=== PATIENT | female | born 1975 | race Two or more races ===

== ENCOUNTER 2025-03-13 15:45 | Emergency (ER) | payer MEDICAID, SELFPAY ==
[2025-03-13 15:49] VITALS: BP 109/74; PULSE 99; RESP 18; TEMP 37.9; O2SAT 97
--- NOTE | 2025-03-13 16:06 | XR_ITS ---
Examination: CT abdomen and pelvis without contrast. Coronal 3-D reconstructions. Sagittal 2-D reconstructions. Date and time of exam:March 13, 2025 1705 hours Comparison March 31, 2023 INDICATIONS: Generalized abdominal pain and vomiting today CTDI: vol (mGy): 9.44 DLP: (mGycm): 535 Technique: Axial images of the abdomen have been obtained, 3 mm slice thickness Intravenous contrast material has not been administered. Low dose protocols were performed. One or more of the following dose reduction techniques were used; automated exposure control, adjustment of the mA and/or KV according to patient size, use of iterative reconstruction technique. Findings: No focal liver or splenic lesions Absent gallbladder Common bile duct 4 mm no common bile duct stones No pancreatitis Normal adrenal glands 23 mm right renal cyst No renal or ureteral calculi, no hydronephrosis Aorta normal size 6 mm fat-containing umbilical hernia No CT findings of appendicitis, no pericecal inflammatory change No bowel obstruction No diverticulitis Retroverted uterus with enlarged fundus and exophytic uterine mass versus adnexal mass axial image 194, measuring 5 cm Urinary bladder intact IMPRESSION: No renal or ureteral calculi, no hydronephrosis No CT findings of appendicitis bowel obstruction or diverticulitis Retroverted uterus with enlarged fundus and exophytic uterine mass versus adnexal mass measuring 5 cm, recommend pelvic sonography follow-up
[2025-03-13 16:35] LABS: Basophils % (Auto) 0 % (0-2.5); Eosinophils # (Auto) 0.2 Thou/mm3 (0.0-0.5); Eosinophils % (Auto) 2 % (0-10); Hematocrit 39.6 % (36.0-46.0); Hemoglobin 13.4 g/dL (12.0-16.0); Immature Granulocytes % (Auto) 0 % (0-0); Immature Granulocytes Auto 0.02 Thou/mm3 (0.00-0.00); Lymphocytes # (Auto) 1.2 Thou/mm3 (1.0-4.8); Lymphocytes % (Auto) 14 % (10-50); Mean Corpuscular HGB Conc 33.8 g/dl (31.0-37.0); Mean Corpuscular Hemoglobin 31.5 pg (25.0-35.0); Mean Corpuscular Volume 93 fL (80-100); Monocytes # (Auto) 0.3 Thou/mm3 (0.0-0.8); Monocytes % (Auto) 4 % (0-12); Neutrophils # (Auto) 6.8 Thou/mm3 (1.8-7.7); Neutrophils % (Auto) 80 % (37-80); Nucleated Red Blood Cell % 0 /100 WBC (0); Platelet Count 200 Thou/mm3 (140-440); RDW Standard Deviation 46.6 fL (36.4-46.3); Red Blood Count 4.25 Miln/mm3 (4.00-5.20); White Blood Count 8.4 Thou/mm3 (3.6-11.0)
[2025-03-13 16:41] LABS: Collection Type, Urine Clean Catch
[2025-03-13] MEDS: ONDANSETRON ODT 4 MG TABRAP PO ×2 (16:45→20:01)
[2025-03-13 16:49] LABS: HCG Qualitative,Urine Negative
[2025-03-13 16:52] LABS: Alanine Aminotransferase 35 U/L (10-49); Albumin, Serum 4.4 gm/dL (3.5-5.0); Albumin/Globulin Ratio 1.4 (1.2-2.2); Alkaline Phosphatase 114 U/L (46-116); Anion Gap 8 (7-16); Aspartate Amino Transferase 43 U/L (0-34); BUN/Creatinine Ratio 20 Ratio (12-20); Bilirubin,Total 0.6 mg/dL (0.3-1.2); Blood Urea Nitrogen 14 mg/dL (9-23); Calcium 9.3 mg/dL (8.3-10.6); Calcium (Corrected) 9.3 mg/dL (8.5-10.1); Carbon Dioxide 28.1 mMol/L (20.0-31.0); Chloride 105 mMol/L (98-107); Creatinine (Component) 0.7 mg/dL (0.6-1.3); Globulin 3.2 gm/dL (2.3-3.5); Glucose 108 mg/dL (74-106); Lipase 32 U/L (12-53); Osmolality,Calculated 282 (275-295); Potassium 4.3 mMol/L (3.4-5.1); Sodium 141 mMol/L (136-145); Total Protein 7.6 gm/dL (5.7-8.2); eGFR > 60 See Note
[2025-03-13 17:21] LABS: Bacteria,Urine 2+; Bilirubin,Urine Negative (Negative); Blood,Urine Negative (Negative); Color,Urine Yellow (Lt Yel-Yel); Glucose, Urine Negative (Negative); Ketones,Urine Negative (Negative); Leukocyte Esterase,Urine Positive (Negative); Nitrite,Urine Negative (Negative); Protein,Urine Negative (Neg - Trace); RBC,Urine 3 /hpf (0-3); Specific Gravity,Urine 1.019 (1.001-1.035); Squamous Epithelial Cell,Urine 3 /hpf (0-5); Urobilinogen,Urine Negative mg/dL (0.0-1.0); WBC,Urine 8 /hpf (0-5)
[2025-03-13 17:22] LABS: Clarity,Urine Hazy (Clear/Hazy)
[2025-03-13 18:03] VITALS: BP 114/80; PULSE 95; RESP 17; TEMP 37.2; O2SAT 98
--- NOTE | 2025-03-13 18:08 | XR_ITS ---
Examination: Pelvic ultrasound, transabdominal, complete Technique: Transabdominal ultrasound of the pelvis performed using grayscale imaging Date and time of exam: March 13, 2025 1927 hours INDICATIONS: Pelvic pain and nausea today FINDINGS: Uterus 12.7 cm endometrial stripe 0.3 cm No uterine mass or intrauterine gestation Ovaries obscured by bowel gas IMPRESSION: Limited study No uterine mass or intrauterine gestation
--- NOTE | 2025-03-13 19:52 | EDNOTE_ITS ---
ED Abdominal Pain RME/HPI General Chief Complaint: Nausea/Vomiting/Diarrhea Stated complaint: VOMITING/BODYACHES Time seen by provider: 03/13/25 15:49 Arrival date/time: 03/13/25 15:45 This is a case of a 49-year-old female who came in the emergency room due to abdominal pain mostly on the periumbilical area cramping in character for 4 days associated with vomiting 4 times today nonprojectile and generalized body ache patient denies any constipation diarrhea or blood in stool denies any fever or chills persistence of the symptoms this patient decided to start consult here in the emergency room Limitations: no limitations Related Data Home Medications ?Medication ?Instructions ?Recorded ?Confirmed acetaminophen 500 mg tablet 500 mg PO Q6H PRN Pain 05/06/23 Held on 05/08/23. Instructions: Resume on 05/13/23. omeprazole 40 mg capsule,delayed 40 mg PO QDAY 3 05/06/23 release Previous Rx's ?Medication ?Instructions ?Recorded docusate sodium 100 mg capsule 100 mg PO BID #40 caps 05/08/23 (Colace) hydrocodone 5 mg-acetaminophen 325 1 tab PO Q6H PRN pa in (scale score 05/08/23 mg tablet 7-10) #20 tabs ibuprofen 600 mg tablet 600 mg PO Q8H PRN pain (scal e 05/08/23 score 4-6) #15 tabs amoxicillin 875 mg-potassium 1 tab PO BID 10 days #20 tabs 03/13/25 clavulanate 125 mg tablet dicyclomine 20 mg tablet 20 mg PO TID PRN abdominal p ain 03/13/25 #20 tabs famotidine 20 mg tablet 20 mg PO BID #30 tabs ondansetron 4 mg disintegrating 4 mg PO Q8H PRN nausea and 03/13/25 tablet vomiting #20 tabs Allergies Allergy/AdvReac Type Severity Reaction Status Date / Time No Known Allergies Allergy Verified 03/13/25 15:48 Review of Systems Review of Systems Systems Reviewed: All systems reviewed, normal except as documented Constitutional Constitutional: Reports system reviewed and no additional complaints, except as documented and Reports as per HPI ENT Ears, Nose, Mouth, and Throat: Denies dysphagia and Denies odynophagia Cardiovascular Cardiovascular: Reports as per HPI Respiratory Respiratory: Reports system reviewed and no additional complaints, except as documented and Reports as per HPI Gastrointestinal Gastrointestinal: Reports system reviewed and no additional complaints, except as documented, Reports as per HPI, Reports abdominal pain, Denies belching, Denies bloating, Denies change in bowel habits, Denies change in stool character, Denies coffee ground emesis, Denies constipation, Denies cramping, Denies diarrhea, Denies dyspepsia, Denies dysphagia, Denies early satiety, Denies excessive flatus, Denies fecal incontinence, Denies heartburn, Denies hematemesis, Denies hematochezia, Denies loose stools, Denies melena, Reports nausea, Denies odynophagia, Denies tenesmus and Reports vomiting Musculoskeletal Musculoskeletal: Reports system reviewed and no additional complaints, except as documented and Reports as per HPI Neurologic Neurologic: Reports system reviewed and no additional complaints, except as documented and Reports as per HPI Past Medical History Past Medical History NEUROLOGIC: Negative Neurological Disorders or Seizures CARDIAC: Negative Cardiac Disorders or Congestive Heart Failure RESPIRATORY: Positive Bronchitis (15 yrs ago); Negative Chronic Obstructive Pulmonary Disease (COPD) or Asthma GASTROINTESTINAL: Positive Gastrointestinal Disorders and Gall Bladder Disease GENITOURINARY: Positive Genitourinary Disorders and Kidney Stones; Negative Renal Disease REPRODUCTIVE: Positive Previous Pregnancies; Negative Endometriosis MUSCULOSKELETAL: Negative Musculoskeletal Disorders ENDOCRINE: Negative Endocrine Disorders, Diabetes Mellitus Type 1 or Diabetes Mellitus Type 2 HEMATOLOGIC: Negative Blood Disorders or Sickle Cell Disease OTHER HISTORY: Positive Chicken Pox and Measles; Negative Hospitalization, Autoimmune Disease, Shingles, Blood Transfusions, Blood Transfusion Reaction, Anesthesia Reactions or Cancer Family History FAMILY HISTORY: Positive Family Surgery; Negative Family Psychiatric Problems, Family Respiratory Disorders, Family Cardiac Disorders, Family Gastrointestinal Problems, Family Cancer or Family Anesthesia Reaction Surgical History SURGICAL: Positive Section Social History SMOKING STATUS: Never smoker ED Exam General Limitations: Present no limitations General appearance: Present alert and in no apparent distress Head Head exam: Present atraumatic Eye Eye exam: Present normal appearance, PERRL and EOMI ENT ENT exam: Present normal exam, normal oropharynx and mucous membranes moist Neck Neck exam: Present normal inspection, full ROM and trachea midline; Absent tenderness, meningismus, lymphadenopathy or thyromegaly Chest Chest inspection: Present normal inspection and symmetric chest wall rise; Absent tenderness, rash or abscess Respiratory Respiratory exam: Present normal lung sounds bilaterally; Absent respiratory distress, wheezes, stridor, accessory muscle use or prolonged expiratory phase Cardiovascular Cardiovascular exam: Present regular rate, normal rhythm and normal heart sounds Abdominal Exam Abdominal exam: Present soft, tenderness (Mild tenderness in the periumbilical area) and normal bowel sounds; Absent distention, guarding, rebound, rigidity, diminished bowel sounds, hyperactive bowel sounds, hypoactive bowel sounds, organomegaly, trauma, incision, psoas sign, obturator sign, heel tap sign, Lao's sign, Rovsing's sign, tenderness at McBurney's Point, ascites, mass, bruit, pulsatile mass, hernia or scar Extremities Exam Extremities exam: Present normal inspection and full ROM Back Exam Back exam: Present normal inspection and full ROM Neurological Exam Neurological exam: Present alert, oriented X3, CN II-XII intact, normal gait and reflexes normal; Absent motor sensory deficit Psychiatric Psychiatric exam: Present normal affect and normal mood Skin Skin exam: Present warm, dry, intact and normal color Course Quality Measures none Orders Category Date Time Status CT abdomen pelvis wo con Stat Exams 03/13/25 16:06 Completed US pelvic complete Stat Exams 03/13/25 18:08 Completed CBC Stat Lab 03/13/25 16:18 Completed Comprehensive Metabolic Panel Stat Lab 03/13/25 16:18 Completed HCG Qualitative,Urine Stat Lab 03/13/25 16:35 Completed Lipase Stat Lab 03/13/25 16:18 Completed Urinalysis Stat Lab 03/13/25 16:35 Completed Dicyclomine Inj [Bentyl Inj] Med 03/13/25 19:42 Discontinued 10 mg IM X1 ONE HYDROcodone*/APAP 5/325 [Dellroy 5/325] Med 03/13/25 19:50 Discontinued 1 tab PO X1 ONE Ondansetron Odt [Zofran Odt] Med 03/13/25 16:06 Discontinued 4 mg PO X1 ONE Ondansetron Odt [Zofran Odt] Med 03/13/25 19:50 Discontinued 4 mg PO X1 ONE Vital Signs Vital signs: Vital Signs Temperature 100.3 F 03/13/25 15:49 Pulse Rate 99 03/13/25 15:49 Respiratory Rate 18 03/13/25 15:49 Blood Pressure 109/74 03/13/25 15:49 Pulse Oximetry (%) 97 03/13/25 15:49 Oxygen Delivery Method Room Air 03/13/25 15:49 Oxygen saturation pulse ox 97% on room air Abdominal Pain MDM MDM Narrative MDM Narrative:: This is a case of a 49-year-old female who came in the emergency room due to abdominal pain mostly on the periumbilical area cramping in character for 4 days associated with vomiting 4 times today nonprojectile and generalized body ache patient denies any constipation diarrhea or blood in stool denies any fever or chills persistence of the symptoms this patient decided to start consult here in the emergency room physical examination patient is awake alert oriented not in distress nontoxic looking abdominal exam is benign nonsurgical no guarding no rebound no rigidity mild tenderness in the periumbilical area negative psoas negative straight or negative Rovsing's negative McBurney's negative Lao sign negative CVA tenderness patient is not tachycardic not tachypneic afebrile and nonhypoxic patient vital signs stable BP stable excellent scared turgor patient has no signs and symptoms of sepsis no dehydration blood test showed no leukocytosis no anemia kidney and liver function is normal no electrolyte imbal ance lipase is normal patient urinalysis showed WBC and urine thus patient will be treated as urinary tract infection CT scan is normal pelvic ultrasound is also normal no uterine mass no ovarian mass patient was given Bentyl and Dellroy for pain and Zofran for vomiting no recurrence of vomiting patient condition markedly improved abdominal pain improved Patient was discharged with comfortable condition walking with stable gait. Patient verbalized no further complains explained diagnosis and answered patient question. Patient is comfortable with the proposed management plan including the need to follow up with his/her primary care physician and any specialist if applicable Discussed patient for any urgent condition or worsening sx, He/She needed to go to emergency room immediately or call 911. Patient acknowledge the responsibility to follow up as instructed and to monitor her/his symptoms. For any persistence of the symptoms for more than 3-5 days return precaution advised. Discussed the result of the test and was given printed discharge instruction Patient data External records reviewed:: [facility] previous records Clinical information provided by:: patient Social determinants that could affect healthcare access:: none Patient has the following chronic illnesses:: None How is presenting disease/condition affected by chronic disease/condition?: no chronic disease Evaluation data The following diagnostics were reviewed and interpreted by me:: lab results and radiology exam(s) Lab and/or radiology exams considered but not ordered:: Reviewed Interpretation Summary: Reviewed Medications / Prescriptions Medications or Prescriptions considered but not ordered:: Given given Medication administrations:: Medication Administration History Discontinued Medications Hydrocodone Bitart/Acetaminophen (Hydrocodone/Apap 5/325 Tablet) 1 tab PO X1 ONE Stop: 03/13/25 19:51 Dicyclomine HCl (Dicyclomine Inj 10 Mg/Ml 2ml Amp) 10 mg IM X1 ONE Stop: 03/13/25 19:43 Ondansetron HCl (Ondansetron Odt 4 Mg Tabrap) 4 mg PO X1 ONE; Protocol Stop: 03/13/25 16:07 Last Admin: 03/13/25 16:45 Dose: 4 mg Documented By: TUNDE Ondansetron HCl (Ondansetron Odt 4 Mg Tabrap) 4 mg PO X1 ONE; Protocol Stop: 03/13/25 19:51 Given Consultations Consultation(s) initiated? (list below): No Diagnosis Differential diagnosis abdominal pain: abdominal pain, acute appendicitis, calc ulus of kidney, diverticulitis and gastroenteritis Most likely diagnosis given after review of the tests above:: Urinary tract infection Admission Indicated Admission indicated?: not indicated Explain why admission is indicated or not indicated:: Not indicated Admission Request Was there a request for admission?: No Admission Attestation Admission request attestation: Not indicated Disposition Plan Disposition Plan: Discharge Discharge Attestation Discharge Attestation: The patient and all family members were given an opportunity to ask questions and understood the discharge instructions. Discharge instructions specifically effects, indications for sooner follow up or return to the emergency department, and the expected course of current diagnosis. Patient condition: Stable Discharge Plan Plan Patient Disposition: HOME (Self Care) Patient condition on transfer: Stable Prescriptions/Referrals Prescriptions/Med Rec: New ondansetron 4 mg tablet,disintegrating 4 mg PO Q8H PRN (Reason: nausea and vomiting) Qty: 20 0RF amoxicillin-pot clavulanate 875-125 mg tablet 1 tab PO BID 10 Days Qty: 20 0RF famotidine 20 mg tablet 20 mg PO BID Qty: 30 0RF dicyclomine 20 mg tablet 20 mg PO TID PRN (Reason: abdominal pain) Qty: 20 0RF No Action omeprazole 40 mg Capsule,Delayed Release(Dr/Ec) 40 mg PO QDAY acetaminophen 500 mg Tablet 500 mg PO Q6H PRN (Reason: Pain) docusate sodium [Colace] 100 mg capsule 100 mg PO BID Qty: 40 0RF hydrocodone-acetaminophen 5-325 mg tablet 1 tab PO Q6H MDD 4 PRN (Reason: pain (scale score 7-10)) Qty: 20 0RF ibuprofen 600 mg tablet 600 mg PO Q8H PRN (Reason: pain (scale score 4-6)) Qty: 15 0RF Referrals: Asael Spence MD [Primary Care Provider] - In 1 week Problem List Clinical Impression: Abdominal pain, Urinary tract infection, Vomiting Patient/Caregiver Discharge Instructions Education Materials: Abdominal Pain, Urinary Tract Infections in Women, ED Diet for Vomiting or ..., ED Vomiting (Adult) Additional Instructions: Follow-up with your primary care physician in 2 days for reevaluation worsening symptoms or any emergent concern or persistence of the symptoms return to the emergency room immediately or call 911 increase water intake Pedialyte Gatorade for every bouts of vomiting take your medication and finish the course of antibiotic Print Language: Latvian Stand Alone Forms: Marianne Award Info., Patient Portal Info Letter PA/RUBBER BELT SPLICER Supervising Physician PA/RUBBER BELT SPLICER Supervising Physician: dr curiel
[2025-03-13] MEDS: HYDROcodone/APAP 5/325 TABLET 1 TAB PO (20:01)
[2025-03-13] MEDS: DICYCLOMINE INJ 10 MG/ML 2ML AMP IM (20:02)
[2025-03-13 20:07] VITALS: BP 116/78; PULSE 68; RESP 18; TEMP 36.7; O2SAT 100
== END 2025-03-13 20:08 | disposition home or self-care (01) ==
PROVIDERS: Nurse Practitioner Family; Emergency Provider Family Medicine; PCP Family Medicine
DX: N39.0 Urinary tract infection, site not specified (principal); N85.4 Malposition of uterus; N85.2 Hypertrophy of uterus
CPT/HCPCS: 36415; 74176; 76856; 80053; 81001; 81025; 83690; 85025; 96372; 99284; J0500; Q0162; A9270

== ENCOUNTER 2025-03-14 00:05 | Inpatient (IN) | payer MEDICAID, SELFPAY ==
[2025-03-14] VITALS (12 sets, daily range): BP systolic 119–175; BP diastolic 69–90; PULSE 62–85; RESP 14–18; TEMP 36.4–37; O2SAT 96–99; BMI 28.0; BMI 30.4
--- NOTE | 2025-03-14 | XR_ITS ---
MRI abdomen, without contrast. MRCP Date and time of exam: March 14, 2025 0848 hours INDICATIONS: Abdominal pain elevated liver function tests on laboratory examination today Technique: Multiple axial and coronal images of the abdomen have been obtained with the Siemens 1.5T MRI scanner. Images obtained included T1 weighted transverse images, T2-weighted transverse images, T2-weighted transverse images fat-suppressed, T2 weighted haste fat suppressed transverse images, T1 weighted images, in and out of phase images, T2-weighted coronal images, breath hold, T2 weighted haze coronal images as well as T2 weighted coronal thick slab images, MRCP. Findings: Hepatomegaly 19 cm Intrahepatic biliary tract dilatation Extrahepatic biliary tract dilatation, common hepatic duct 11 mm Meniscus defect in the distal common bile duct suspicious for 5 mm impacted stone No pancreatic mass Spleen not enlarged Minimal prominence of the left renal calyces IMPRESSION: Suspicious for 5 mm impacted stone in the distal common bile duct
--- NOTE | 2025-03-14 00:18 | PD.EDABDPN ---
ED Abdominal Pain RME/HPI General Chief Complaint: Abdominal Pain Stated complaint: UPPER GASTRIC PAIN Time seen by provider: 03/14/25 00:09 Arrival date/time: 03/14/25 00:05 This is a case of a 49-year-old female with no medical history came in in the emergency room due to abdominal pain more on epigastric area for 4 days associated with nausea vomiting but no constipation no diarrhea no blood in stool patient was seen here earlier and was treated for abdominal pain vomiting and urinary tract infection at total exam was performed blood test showed no leukocytosis no anemia kidney and liver function is normal no electrolyte imbalance urinalysis showed suggestive of urinary tract infection CT scan showed normal no appendicitis ultrasound of the pelvic is also normal patient condition markedly improved and was discharge with Augmentin for urinary tract infection Zofran for vomiting and Bentyl for abdominal pain and Pepcid for possible gastritis patient states that the pharmacy is closed and unable to get the medication patient condition improved thus patient was discharged in the emergency room no recurrence of the symptoms this patient decided to start consult here again in the emergency room Limitations: no limitations and language barrier Related Data Home Medications ?Medication ?Instructions ?Recorded ?Confirmed acetaminophen 500 mg tablet 500 mg PO Q6H PRN Pain 05/06/23 05/06/23 Held on 05/08/23. Instructions: Resume on 05/13/23. omeprazole 40 mg capsule,delayed 40 mg PO QDAY 05/06/23 05/06/23 release Previous Rx's ?Medication ?Instructions ?Recorded docusate sodium 100 mg capsule 100 mg PO BID #40 caps 05/08/23 (Colace) hydrocodone 5 mg-acetaminophen 325 1 tab PO Q6H PRN pain (scale score 05/08/23 mg tablet 7-10) #20 tabs ibuprofen 600 mg tablet 600 mg PO Q8H PRN pain (scale 05/08/23 score 4-6) #15 tabs amoxicillin 875 mg-potassium 1 tab PO BID 10 days #20 tabs 03/13/25 clavulanate 125 mg tablet dicyclomine 20 mg tablet 20 mg PO TID PRN abdominal pain 03/13/25 #20 tabs famotidine 20 mg tablet 20 mg PO BID #30 tabs 03/13/25 ondansetron 4 mg disintegrating 4 mg PO Q8H PRN nausea and 03/13/25 tablet vomiting #20 tabs Allergies Allergy/AdvReac Type Severity Reaction Status Date / Time No Known Allergies Allergy Verified 03/13/25 15:48 Review of Systems Review of Systems Systems Reviewed: All systems reviewed, normal except as documented Constitutional Constitutional: Reports system reviewed and no additional complaints, except as documented ENT Ears, Nose, Mouth, and Throat: Denies dysphagia and Denies odynophagia Cardiovascular Cardiovascular: Reports system reviewed and no additional complaints, except as documented and Reports as per HPI Respiratory Respiratory: Reports system reviewed and no additional complaints, except as documented Gastrointestinal Gastrointestinal: Reports system reviewed and no additional complaints, except as documented, Reports as per HPI, Reports abdominal pain, Denies belching, Denies bloating, Denies change in bowel habits, Denies change in stool character, Denies coffee ground emesis, Denies constipation, Denies cramping, Denies diarrhea, Denies dyspepsia, Denies dysphagia, Denies early satiety, Denies excessive flatus, Denies fecal incontinence, Denies heartburn, Denies hematemesis, Denies hematochezia, Denies loose stools, Denies melena, Reports nausea, Denies odynophagia, Denies tenesmus and Reports vomiting Musculoskeletal Musculoskeletal: Reports system reviewed and no additional complaints, except as documented and Reports as per HPI Neurologic Neurologic: Reports system reviewed and no additional complaints, except as documented and Reports as per HPI Past Medical History Past Medical History NEUROLOGIC: Negative Neurological Disorders or Seizures CARDIAC: Negative Cardiac Disorders or Congestive Heart Failure RESPIRATORY: Positive Bronchitis (15 yrs ago); Negative Chronic Obstructive Pulmonary Disease (COPD) or Asthma GASTROINTESTINAL: Positive Gastrointestinal Disorders and Gall Bladder Disease GENITOURINARY: Positive Genitourinary Disorders and Kidney Stones; Negative Renal Disease REPRODUCTIVE: Positive Previous Pregnancies; Negative Endometriosis MUSCULOSKELETAL: Negative Musculoskeletal Disorders ENDOCRINE: Negative Endocrine Disorders, Diabetes Mellitus Type 1 or Diabetes Mellitus Type 2 HEMATOLOGIC: Negative Blood Disorders or Sickle Cell Disease OTHER HISTORY: Positive Chicken Pox and Measles; Negative Hospitalization, Autoimmune Disease, Shingles, Blood Transfusions, Blood Transfusion Reaction, Anesthesia Reactions or Cancer Family History FAMILY HISTORY: Positive Family Surgery; Negative Family Psychiatric Problems, Family Respiratory Disorders, Family Cardiac Disorders, Family Gastrointestinal Problems, Family Cancer or Family Anesthesia Reaction Surgical History SURGICAL: Positive Section Social History SMOKING STATUS: Never smoker ED Exam General Limitations: Present no limitations and language barrier General appearance: Present alert and in no apparent distress; Absent appears intoxicated, anxious, lethargic, obtunded, in distress, obese or cachectic Head Head exam: Present atraumatic Eye Eye exam: Present normal appearance, PERRL and EOMI ENT ENT exam: Present normal exam, normal oropharynx and mucous membranes moist Neck Neck exam: Present normal inspection, full ROM and trachea midline; Absent tenderness, meningismus, lymphadenopathy or thyromegaly Chest Chest inspection: Present normal inspection and symmetric chest wall rise; Absent tenderness, rash or abscess Respiratory Respiratory exam: Present normal lung sounds bilaterally; Absent respiratory distress, wheezes, stridor, accessory muscle use or prolonged expiratory phase Cardiovascular Cardiovascular exam: Present regular rate, normal rhythm and normal heart sounds; Absent bradycardia, tachycardia, irregular rhythm or systolic murmur Abdominal Exam Abdominal exam: Present soft, tenderness (Mild tenderness in the epigastric area) and normal bowel sounds; Absent distention, guarding, rebound, rigidity, diminished bowel sounds, hyperactive bowel sounds, hypoactive bowel sounds, organomegaly, trauma, incision, psoas sign, obturator sign, heel tap sign, Lao's sign, Rovsing's sign, tenderness at McBurney's Point, ascites, mass or pulsatile mass Extremities Exam Extremities exam: Present normal inspection and full ROM Back Exam Back exam: Present normal inspection and full ROM Neurological Exam Neurological exam: Present alert, oriented X3, CN II-XII intact, normal gait and reflexes normal; Absent motor sensory deficit Psychiatric Psychiatric exam: Present normal affect and normal mood Skin Skin exam: Present warm, dry, intact and normal color Course Quality Measures none Orders Category Date Time Status CT Screening NOW Care 03/14/25 02:04 Active EKG (ED ONLY) *Do not use* NOW Care 03/14/25 02:05 Completed Saline [Insert IV] NOW Care 03/14/25 02:02 Active Consult to Gastroenterology Stat Cons 03/14/25 05:[address] angio chest abdomen pelvis Stat Exams 03/14/25 02:04 Taken EKG (ED Only) Stat Exams 03/14/25 02:05 Draft US gall bladder Stat Exams 03/14/25 02:04 Taken Amylase Stat Lab 03/14/25 02:30 Completed BNP [B-Type Natriuretic Peptide] Stat Lab 03/14/25 02:30 Completed Beta Hydroxybutyrate Stat Lab 03/14/25 02:30 Completed Bilirubin,Direct Stat Lab 03/14/25 02:30 Completed Blood Culture (Lab) Stat Lab 03/14/25 02:34 Received CBC Stat Lab 03/14/25 02:30 Completed CMP [Comprehensive Metabolic Panel] Stat Lab 03/14/25 02:30 Completed CRP [C-Reactive Protein] Stat Lab 03/14/25 02:30 Completed D-Dimer Stat Lab 03/14/25 02:30 Completed ESR [Sed Rate (ESR)] Stat Lab 03/14/25 02:30 Completed Free T4 (Free Thyroxine) Stat Lab 03/14/25 02:30 Completed Hepatitis Acute Panel Stat Lab 03/14/25 02:30 Completed Lactate (Lactic Acid) Stat Lab 03/14/25 02:30 Completed Lipase Stat Lab 03/14/25 02:30 Completed Magnesium Stat Lab 03/14/25 02:30 Completed PT [Prothrombin Time with INR] Stat Lab 03/14/25 02:30 Completed PTT [Partial Thromboplastin Time] Stat Lab 03/14/25 02:30 Completed Procalcitonin Stat Lab 03/14/25 02:30 Completed TSH [Thyroid Stimulating Hormone] Stat Lab 03/14/25 02:30 Completed Troponin I Stat Lab 03/14/25 02:30 Completed Famotidine Inj [Pepcid Inj] Med 03/14/25 02:02 Discontinued 20 mg IVP X1 ONE HYDROmorphone INJ [Dilaudid Inj] Med 03/14/25 02:02 Discontinued 2 mg IVP X1 ONE Ketorolac Inj [Toradol Inj] Med 03/14/25 02:02 Discontinued 30 mg IVP X1 ONE Lidocaine 2% Viscous [Xylocaine 2% Viscous] Med 03/14/25 01:15 Discontinued 15 ml PO X1 ONE Morphine Inj Med 03/14/25 00:15 Discontinued 2 mg IVP Q1H PRN Morphine Inj Med 03/14/25 01:15 Discontinued 2 mg IVP Q1H PRN Ondansetron Inj [Zofran Inj] Med 03/14/25 00:15 Discontinued 4 mg IVP X1 ONE Ondansetron Inj [Zofran Inj] Med 03/14/25 02:02 Discontinued 4 mg IVP X1 ONE Pantoprazole Inj [Protonix Inj] Med 03/14/25 00:15 Discontinued 40 mg IVP X1 ONE Pantoprazole Inj [Protonix Inj] Med 03/14/25 02:02 Discontinued 40 mg IVP X1 ONE Sodium Chloride 0.9% 1000 ml [Ns] 1,000 ml Med 03/14/25 00:15 Discontinued IV 999 mls/hr Sodium Chloride 0.9% 1000 ml [Ns] 1,000 ml Med 03/14/25 02:02 Discontinued IV 999 mls/hr Sodium Chloride 0.9% 1000 ml [Ns] 1,000 ml Med 03/14/25 04:29 Active IV 999 mls/hr mg Hyd/Al Hyd/Shira Susp [Maalox Susp] Med 03/14/25 00:15 Discontinued 30 ml PO X1 ONE Vital Signs Vital signs: Vital Signs Temperature 98.3 F 03/14/25 00:11 Pulse Rate 85 03/14/25 00:11 Respiratory Rate 18 03/14/25 00:11 Blood Pressure 123/76 03/14/25 00:11 Pulse Oximetry (%) 96 03/14/25 00:11 Oxygen Delivery Method Room Air 03/14/25 00:11 Patient vital signs stable patient is a febrile not tachycardic not tachypneic not hypoxic oxygen saturation is 96% in room air BP stable Abdominal Pain MDM MDM Narrative MDM Narrative:: This is a case of a 49-year-old female with no medical history came in in the emergency room due to abdominal pain more on epigastric area for 4 days associated with nausea vomiting but no constipation no diarrhea no blood in stool patient was seen here earlier and was treated for abdominal pain vomiting and urinary tract infection at total exam was performed blood test showed no leukocytosis no anemia kidney and liver function is normal no electrolyte imbalance urinalysis showed suggestive of urinary tract infection CT scan showed normal no appendicitis ultrasound of the pelvic is also normal patient condition markedly improved and was discharge with Augmentin for urinary tract infection Zofran for vomiting and Bentyl for abdominal pain and Pepcid for possible gastritis patient states that the pharmacy is closed and unable to get the medication patient condition improved thus patient was discharged in the emergency room no recurrence of the symptoms this patient decided to start consult here again in the emergency room physical examination patient is awake alert oriented not in distress nontoxic looking patient abdominal exam is benign nonsurgical no guarding no rebound no rigidity mild tenderness in the epigastric area negative psoas negative obturator negative Rovsing's negative McBurney's negative Lao sign negative CVA tenderness at this point patient will be diagnosed to have gastritis patient was given a bolus of normal saline morphine 2 mg IV with Maalox patient was also given Zofran and Protonix after 30 minutes patient condition markedly improved and was discharge patient was advised to continue the medication that was prescribed from the previous visit she also needs to see a assistant inventory manager for gastritis for possible EGD for any recurrence worsening symptoms or any emergent concerns she will return the emergency room immediately or call 911 after medication no recurrence of vomiting no signs and symptoms of sepsis no signs and symptoms of dehydration Patient was discharged with comfortable condition walking with stable gait. Patient verbalized no further complains explained diagnosis and answered patient question. Patient is comfortable with the proposed management plan including the need to follow up with his/her primary care physician and any specialist if applicable Discussed patient for any urgent condition or worsening sx, He/She needed to go to emergency room immediately or call 911. Patient acknowledge the responsibility to follow up as instructed and to monitor her/his symptoms. For any persistence of the symptoms for more than 3-5 days return precaution advised. Discussed the result of the test and was given printed discharge instruction Patient data External records reviewed:: [facility] [place] previous records Clinical information provided by:: patient and family Social determinants that could affect healthcare access:: none Patient has the following chronic illnesses:: None How is presenting disease/condition affected by chronic disease/condition?: no chronic disease Evaluation data The following diagnostics were reviewed and interpreted by me:: lab results and radiology exam(s) Lab and/or radiology exams considered but not ordered:: Reviewed Interpretation Summary: Reviewed Medications / Prescriptions Medications or Prescriptions considered but not ordered:: Given Medication administrations:: Medication Administration History Sodium Chloride (Ns) 1,000 mls @ 999 mls/hr IV .Q1H1M ONE Stop: 03/14/25 05:29 Discontinued Medications Al Hydrox/Mg Hydrox/Simethicone (Mg Hyd/Al Hyd/Shira (Maalox Reg) Susp 30 Ml Udc) 30 ml PO X1 ONE Stop: 03/14/25 00:16 Last Admin: 03/14/25 00:23 Dose: 30 ml Documented By: DT Famotidine (Famotidine Inj 10 Mg/Ml Vial 2 Ml) 20 mg IVP X1 ONE Stop: 03/14/25 02:03 Last Admin: 03/14/25 02:18 Dose: 20 mg Documented By: DT Hydromorphone HCl (Hydromorphone Inj 2 Mg/Ml Vial) 2 mg IVP X1 ONE Stop: 03/14/25 02:03 Last Admin: 03/14/25 02:18 Dose: 2 mg Documented By: DT Sodium Chloride (Ns) 1,000 mls @ 999 mls/hr IV .Q1H1M ONE Stop: 03/14/25 01:15 Last Infusion: 03/14/25 01:37 Dose: Infused Documented By: Admin: 03/14/25 00:34 Dose: 999 mls/hr Documented By: DT Sodium Chloride (Ns) 1,000 mls @ 999 mls/hr IV .Q1H1M ONE Stop: 03/14/25 03:02 Last Infusion: 03/14/25 03:33 Dose: Infused Documented By: Admin: 03/14/25 02:16 Dose: 999 mls/hr Documented By: DT Ketorolac Tromethamine (Ketorolac Inj 30 Mg/Ml Vial) 30 mg IVP X1 ONE Stop: 03/14/25 02:03 Last Admin: 03/14/25 02:17 Dose: 30 mg Documented By: DT Lidocaine HCl (Lidocaine Viscous 2% 15 Ml Udc) 15 ml PO X1 ONE Stop: 03/14/25 01:16 Last Admin: 03/14/25 01:26 Dose: 15 ml Documented By: DT Morphine Sulfate (Morphine Sulf Inj 10 Mg/Ml Vial) 2 mg IVP Q1H PRN PRN Reason: ABDOMINAL CRAMPING Last Admin: 03/14/25 01:26 Dose: 2 mg Documented By: Admin: 03/14/25 00:31 Dose: 2 mg Documented By: DT Morphine Sulfate (Morphine Sulf Inj 10 Mg/Ml Vial) 2 mg IVP Q1H PRN PRN Reason: ABDOMINAL CRAMPING Ondansetron HCl (Ondansetron Inj 2 Mg/Ml Inj 2 Ml) 4 mg IVP X1 ONE; Protocol Stop: 03/14/25 00:16 Last Admin: 03/14/25 00:34 Dose: 4 mg Documented By: DT Ondansetron HCl (Ondansetron Inj 2 Mg/Ml Inj 2 Ml) 4 mg IVP X1 ONE; Protocol Stop: 03/14/25 02:03 Last Admin: 03/14/25 02:17 Dose: 4 mg Documented By: DT Pantoprazole Sodium (Pantoprazole Inj 40 Mg Vial) 40 mg IVP X1 ONE Stop: 03/14/25 00:16 Last Admin: 03/14/25 00:32 Dose: 40 mg Documented By: DT Pantoprazole Sodium (Pantoprazole Inj 40 Mg Vial) 40 mg IVP X1 ONE Stop: 03/14/25 02:03 Last Admin: 03/14/25 02:18 Dose: 40 mg Documented By: DT Given Consultations Consultation(s) initiated? (list below): No Diagnosis Differential diagnosis abdominal pain: abdominal pain and other (Gastritis) Most likely diagnosis given after review of the tests above:: Gastritis Admission Indicated Admission indicated?: not indicated Explain why admission is indicated or not indicated:: Not indicated Admission Request Was there a request for admission?: No Disposition Plan Disposition Plan: Discharge Discharge Attestation Discharge Attestation: The patient and all family members were given an opportunity to ask questions and understood the discharge instructions. Discharge instructions specifically effects, indications for sooner follow up or return to the emergency department, and the expected course of current diagnosis. Patient condition: Stable Discharge Plan Prescriptions/Referrals Prescriptions/Med Rec: No Action omeprazole 40 mg Capsule,Delayed Release(Dr/Ec) 40 mg PO QDAY acetaminophen 500 mg Tablet 500 mg PO Q6H PRN (Reason: Pain) docusate sodium [Colace] 100 mg capsule 100 mg PO BID Qty: 40 0RF hydrocodone-acetaminophen 5-325 mg tablet 1 tab PO Q6H MDD 4 PRN (Reason: pain (scale score 7-10)) Qty: 20 0RF ibuprofen 600 mg tablet 600 mg PO Q8H PRN (Reason: pain (scale score 4-6)) Qty: 15 0RF ondansetron 4 mg tablet,disintegrating 4 mg PO Q8H PRN (Reason: nausea and vomiting) Qty: 20 0RF amoxicillin-pot clavulanate 875-125 mg tablet 1 tab PO BID 10 Days Qty: 20 0RF famotidine 20 mg tablet 20 mg PO BID Qty: 30 0RF dicyclomine 20 mg tablet 20 mg PO TID PRN (Reason: abdominal pain) Qty: 20 0RF Referrals: Ingrid Lugo MD [Physician] - 03/15/25 (For further evaluation and treatment of gastritis for possible EGD) Problem List Clinical Impression: Intractable abdominal pain, Intractable vomiting Patient/Caregiver Discharge Instructions Education Materials: Abdominal Pain, ED Gastritis (Adult) Additional Instructions: Follow-up with your primary care physician in 2 days for reevaluation continue the medication that was prescribed from the previous visit increase water intake keep hydrated Pedialyte Gatorade for every bouts of vomiting and or diarrhea it is important to be referred to assistant inventory manager for further evaluation and treatment of gastritis for possible EGD for any worsening symptoms or any emergent concern you need to return in the emergency room immediately or call 911 Print Language: Cymro RACHID/PETTY Supervising Physician RACHID/PETTY Supervising Physician: dr curiel
[2025-03-14] MEDS: MG HYD/AL HYD/SIME (Maalox Reg) SUSP 30 ML UDC PO (00:23)
[2025-03-14] MEDS: MORPHINE SULF INJ 10 MG/ML VIAL 2 MG IVP ×2 (00:31→01:26)
[2025-03-14] MEDS: PANTOPRAZOLE INJ 40 MG VIAL IVP ×2 (00:32→02:18)
[2025-03-14] MEDS: ONDANSETRON INJ 2 MG/ML INJ 2 ML 4 MG IVP ×3 (00:34→11:48)
[2025-03-14] MEDS: SODIUM CHLORIDE 0.9% 1000 ML 1,000 ML 999 ML IV ×3 (00:34→05:26)
[2025-03-14] MEDS: LIDOCAINE VISCOUS 2% 15 ML UDC PO (01:26)
--- NOTE | 2025-03-14 02:04 | XR_ITS ---
Examination: Abdomen sonogram, Limited Date and time of exam: March 14, 2025 0238 hours INDICATIONS: Epigastric pain nausea vomiting beginning 2 days ago Technique: Real-time sanchez scale transabdominal sonographic images of the upper abdomen obtained. Findings: Absent gallbladder Normal common bile duct 0.4 cm Pancreatic head 2.5 cm Liver 18.2 cm fatty infiltration lobular contour and no focal liver lesions Normal hepatopedal portal venous flow Patent IVC IMPRESSION: Normal common bile duct Hepatomegaly, primary hepatocellular disease, fatty infiltration
--- NOTE | 2025-03-14 02:04 | XR_ITS ---
Examination: CTA chest, with intravenous contrast. CTA abdomen, with intravenous contrast. CTA pelvis, with intravenous contrast. 2-D sagittal and coronal reconstructions. 3-D reconstructions. Date and time of exam: March 14, [address] abdomen and pelvis March 13, 2025 Deviations: Severe chest and abdomen pain today CTDI vol (mgy) 10.7 DLP (MGycm) 771 Technique: Multiple CTA images, 2.0 mm slice thickness, obtained chest, abdomen, pelvis, with the high-resolution 64 slice scanner. 100 cc Isovue-370 is administered intravenously. Sagittal and coronal 2-D reconstructions are obtained. 3-D reconstructions, angiographic images are obtained. 3-D postprocessing, including vascular maximum intensity projections. Low dose protocols were performed. One or more of the following dose reduction techniques were used; automated exposure control, adjustment of the mA and/or KV according to patient size, use of iterative reconstruction technique. Findings: 6 mm right thyroid nodule No thoracic aortic aneurysm and dilatation No pulmonary artery emboli on this non-CTA study. 2 mm pulmonary nodule right upper lobe image 106, 3 mm pulmonary nodule left lower lobe image 138 Fluid-filled esophagus with thickening, prominent of the lower wall of the esophagus image 95 Abnormal thickening of the gastric antrum and duodenum The liver is irregular in contour Absent gallbladder Spleen not enlarged No pancreatic mass No common hepatic duct stones Benign renal cysts, no renal or ureteral calculi, no hydronephrosis Aorta normal size Enlarged uterus with right sided pelvic mass again depicted, the pelvic mass either exophytic uterine area of fibroid degeneration or adnexal mass measures at least 5.2 cm Urinary bladder is intact Moderate osteopenia Impression : 6 mm right thyroid nodule, recommend thyroid sonography follow-up Abnormal esophagus, fluid-filled with abnormal thickening of the lower esophageal wall, recommend endoscopy follow-up as esophageal carcinoma would be included in the differential No pneumonia or pulmonary edema Small bilateral pulmonary nodules, six-month follow-up CT chest without contrast Abnormal thickening of the gastric antrum and duodenum, differential would include gastritis, gastric tumor, again recommend endoscopy Enlarged uterus with exophytic uterine mass versus right ovarian mass, recommend repeat pelvic sonography Primary hepatocellular disease versus cirrhosis
--- NOTE | 2025-03-14 02:05 | EKG_ITS ---
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
--- NOTE | 2025-03-14 02:14 | PD.EDADDENDU ---
Emergency Room Addendum <Ronnie Plaza MD - Last Filed: 03/14/25 05:25> Addendum Narrative: I took over the care from Vin Atkinson NP at _0200_ on _03/14/2025_.? See previous notes for complete H & P and ED course.?? I reviewed all diagnostic test results. My interpretation of the EKG is sinus rhythm with no acute ST?T changes. My review of the US gallbladder report is?hepatomegaly associated with liver steatosis. My review of the CT angio chest abdomen pelvis report is: - Patulous esophagus with air-fluid levels within. Please, correlate clinically. - Distal esophageal thickening, further evaluation to assess for esophageal cancer should be considered. - Hepatomegaly and probable cirrhosis. - Small hiatus hernia. - Fecal loading. - Heterogenous enlarged uterus and enlarged right adnexa. - Prominent mesenteric lymph nodes and mild mesenteric fat stranding of uncertain etiology. - Thickening of the pyloric wall. - Heterogenous thyroid. - Dilated left atrium. - Thickening of the pyloric wall Blood tests remarkable for AST 203, ALT 128, Alkaline Phosphatase 144, negative hepatitis panel. UA remarkable for positive leukocyte esterase and WBC and bacteria. Diagnoses include: Intractable abdominal pain and intractable vomiting and UTI. Treatment here from me included?Dilaudid, Toradol, Zofran, Protonix, famotidine, and NS. Some improvement noted. I discussed the case with our biostatistics manager.? About the presentation and exam and diagnostics and treatments here.? And possible need of further care in the hospital.? Recommended MRCP and admission for further care. Patient was signed out to Dr. Zabala at 0600 on 03/14/2025 pending MRCP. Ronnie Plaaz MD <Treva Spence - Last Filed: 03/14/25 05:07> Addendum Narrative: I took over the care from previous shift physician at __ on __.? See previous notes for complete H & P and ED course.?? I reviewed all diagnostic test results. My interpretation of the EKG is sinus rhythm with no acute ST?T changes. My review of the US gallbladder report is?hepatomegaly associated with liver steatosis. My review of the CT angio chest abdomen pelvis report is: - Patulous esophagus with air-fluid levels within. Please, correlate clinically. - Distal esophageal thickening, further evaluation to assess for esophageal cancer should be considered. - Hepatomegaly and probable cirrhosis. - Small hiatus hernia. - Fecal loading. - Heterogenous enlarged uterus and enlarged right adnexa. - Prominent mesenteric lymph nodes and mild mesenteric fat stranding of uncertain etiology. - Thickening of the pyloric wall. - Heterogenous thyroid. - Dilated left atrium. - Thickening of the pyloric wall Blood tests remarkable for AST 203, ALT 128, Alkaline Phosphatase 144. Diagnoses include: Treatment here included?Dilaudid, Toradol, Zofran, Protonix, and NS. I discussed the case with our biostatistics manager.? About the presentation and exam and diagnostics and treatments here.? And need of further care in the hospital.? Recommends MRCP. Patient was signed out to Dr. Zabala at 0600 on 03/14/2025 pending MRCP. Ronnie Plaza MD
[2025-03-14] MEDS: KETOROLAC INJ 30 MG/ML VIAL IVP (02:17)
[2025-03-14] MEDS: HYDROmorphone INJ 2 MG/ML VIAL IVP (02:18)
[2025-03-14] MEDS: FAMOTIDINE INJ 10 MG/ML VIAL 2 ML 20 MG IVP (02:18)
[2025-03-14 02:39] LABS: Lactate (Lactic Acid) 1.4 mMol/L (0.4-2.0)
[2025-03-14 02:41] LABS: Basophils % (Auto) 0 % (0-2.5); Eosinophils % (Auto) 0 % (0-10); Hematocrit 35.7 % (36.0-46.0); Hemoglobin 12.2 g/dL (12.0-16.0); Immature Granulocytes % (Auto) 0 % (0-0); Immature Granulocytes Auto 0.01 Thou/mm3 (0.00-0.00); Lymphocytes # (Auto) 1.1 Thou/mm3 (1.0-4.8); Lymphocytes % (Auto) 13 % (10-50); Mean Corpuscular HGB Conc 34.2 g/dl (31.0-37.0); Mean Corpuscular Hemoglobin 31.7 pg (25.0-35.0); Mean Corpuscular Volume 93 fL (80-100); Monocytes # (Auto) 0.4 Thou/mm3 (0.0-0.8); Monocytes % (Auto) 5 % (0-12); Neutrophils # (Auto) 6.8 Thou/mm3 (1.8-7.7); Neutrophils % (Auto) 82 % (37-80); Nucleated Red Blood Cell % 0 /100 WBC (0); Platelet Count 160 Thou/mm3 (140-440); RDW Standard Deviation 45.8 fL (36.4-46.3); Red Blood Count 3.85 Miln/mm3 (4.00-5.20); White Blood Count 8.3 Thou/mm3 (3.6-11.0)
[2025-03-14 02:48] LABS: Beta Hydroxybutyrate 0.1 mmol/L (<0.6)
[2025-03-14 02:52] LABS: Sed Rate (ESR) 28 mm/hr (0-30)
[2025-03-14 02:59] LABS: D-Dimer 489 ng/mL (<600)
[2025-03-14 03:01] LABS: INR 1.1 (0.9-1.3); Partial Thromboplastin Time 26.6 Seconds (22.0-36.0); Prothrombin Time 11.9 Seconds (9.0-12.2)
[2025-03-14 03:04] LABS: B-Type Natriuretic Peptide < 20 pg/mL (0-100)
[2025-03-14 03:14] LABS: Alanine Aminotransferase 128 U/L (10-49); Albumin, Serum 4.2 gm/dL (3.5-5.0); Albumin/Globulin Ratio 1.5 (1.2-2.2); Alkaline Phosphatase 144 U/L (46-116); Amylase 28 U/L (30-118); Anion Gap 7 (7-16); Aspartate Amino Transferase 203 U/L (0-34); BUN/Creatinine Ratio 18 Ratio (12-20); Bilirubin,Direct 0.4 mg/dL (0.0-0.3); Bilirubin,Total 0.9 mg/dL (0.3-1.2); Blood Urea Nitrogen 11 mg/dL (9-23); C-Reactive Protein 3.1 mg/dL (0.0-0.9); Calcium 8.7 mg/dL (8.3-10.6); Calcium (Corrected) 8.7 mg/dL (8.5-10.1); Carbon Dioxide 26.7 mMol/L (20.0-31.0); Chloride 104 mMol/L (98-107); Creatinine (Component) 0.6 mg/dL (0.6-1.3); Estimated Creatinine Clearance 131.4 mL/min (>60); Free T4 (Free Thyroxine) 1.06 ng/dL (0.89-1.76); Globulin 2.8 gm/dL (2.3-3.5); Glucose 128 mg/dL (74-106); Lipase 27 U/L (12-53); Magnesium 1.9 mg/dL (1.6-2.6); Osmolality,Calculated 277 (275-295); Potassium 3.8 mMol/L (3.4-5.1); Procalcitonin 0.07 ng/ml (0.0-0.49); Sodium 138 mMol/L (136-145); Thyroid Stimulating Hormone 0.69 uIU/mL (0.55-4.78); Troponin I < 0.002 ng/mL (0.0-0.045); eGFR > 60 See Note
--- NOTE | 2025-03-14 03:25 | PRELIM_ITS ---
Gallbladder ultrasound with Doppler and wave Doppler spectral analysis. March 14, 2025 0238 hours Clinical history: Epigastric tenderness (no GB) Comparison: None. Findings: The liver demonstrates mildly increased echogenicity. Hepatomegaly. Status postcholecystectomy. The common duct is normal in caliber at 4.4 mm. No free fluid is demonstrated on the submitted images. The portal vein is patent with hepatopetal flow normal with Doppler spectral analysis. The hepatic veins are patent with normal wave Doppler spectral analysis. The IVC is patent with normal wave Doppler spectral analysis. Impression: Hepatomegaly associated with liver steatosis, suspicious for steatohepatitis. Report Electronically Signed By: Moises Casiano 03/14/2025 3:24:53 AM [EST]
--- NOTE | 2025-03-14 04:30 | PRELIM_ITS ---
CT scan of the chest, abdomen and pelvis with intravenous contrast (axial sections with sagittal and coronal reformats) March 14, 2025 0300 hours Clinical History: Severe chest/abdominal pain Comparison: Ultrasound of March 14, 2025. Findings: This venous phase study is suboptimal for evaluation of the arterial system.. The lungs are clear. There is no pleural effusion or pneumothorax. Allowing for the imaging limitations, the aorta is within normal limits without evidence of dissection or aneurysm. No evidence of mediastinal mass or lymphadenopathy. There is no pericardial effusion. The spleen, pancreas, and adrenals are unremarkable. Small right renal simple cyst. No hydronephrosis. Status postcholecystectomy. No biliary duct dilation. Mild irregular liver margins. Hepatomegaly. Heterogenous liver parenchyma. Fecal loading. No evidence of bowel obstruction. No evidence of appendicitis. The urinary bladder is unremarkable. There is no free fluid or free air. The osseous structures are unremarkable. Prominent mesenteric lymph nodes and mild mesenteric fat stranding. Thickening of the pyloric wall. Patulous esophagus with air-fluid levels within. Small hiatus hernia. Thickening of the distal esophagus. Heterogenous enlarged uterus and enlarged right adnexa. Heterogenous thyroid. Dilated left atrium. Impression: 1. Allowing for the imaging limitations, the aorta is within normal limits without evidence of dissection or aneurysm. 2. Patulous esophagus with air-fluid levels within. Please, correlate clinically. 3. Distal esophageal thickening, further evaluation to assess for esophageal cancer should be considered. 4. Hepatomegaly and probable cirrhosis. 5. Small hiatus hernia. 6. Fecal loading. 7. Heterogenous enlarged uterus and enlarged right adnexa. Correlation with pelvic ultrasound is recommended. 8. Prominent mesenteric lymph nodes and mild mesenteric fat stranding of uncertain etiology. Consider mesenteric lymphadenitis in the differential diagnosis.. 9. Thickening of the pyloric wall. 10. Heterogenous thyroid. Consider correlation with thyroid function tests and ultrasound. 11. Dilated left atrium. 12. Thickening of the pyloric wall, consider correlation with gastroscopy. Report Electronically Signed By: Moises Casiano 03/14/2025 4:30:19 AM [EST]
[2025-03-14 05:09] LABS: Hepatitis A Antibody IgM Non Reactive (Non React); Hepatitis B Core Antibody IgM Non Reactive (Non React); Hepatitis B Surface Antigen Non Reactive (Non React); Hepatitis C Antibody Non Reactive (Non React)
[2025-03-14] MEDS: METOCLOPRAMIDE INJ 5 MG/ML VIAL 2 ML 10 MG IVP (05:45)
--- NOTE | 2025-03-14 06:31 | PD.EDADDENDU ---
Emergency Room Addendum Addendum Narrative: 0600: Care assumed from Dr. Plaza, the previous shift emergency physician. Past medical, surgical, social and family history reviewed. Vitals and home medications reviewed. I will assume the care of the patient at this time, pending MRCP and final disposition. Please refer to the emergency department record for history and examination from initial visit.? Physical exam by me shows patient under no acute distress at this time. 1017: Discussed test HPI, PMHx, lab, radiology results and/or management with Dr. Calderon. Will consult an admission to the hospitalist. 1030: Discussed test HPI, PMHx, lab, radiology results and/or management with resident working with the hospitalist. Will admit for further evaluation and management. Accepts patient for admission. Diagnoses: -Distal convoluted stone -Intractable abdominal pain -Intractable vomiting -UTI Results Objective Laboratory: Laboratory Last Values WBC 8.3 Thou/mm3 (3.6-11.0) 03/14/25 02:30 RBC 3.85 Miln/mm3 (4.00-5.20) L 03/14/25 02:30 Hgb 12.2 g/dL (12.0-16.0) 03/14/25 02:30 Hct 35.7 % (36.0-46.0) L 03/14/25 02:30 MCV 93 fL (80-100) 03/14/25 02:30 MCH 31.7 pg (25.0-35.0) 03/14/25 02:30 MCHC 34.2 g/dl (31.0-37.0) 03/14/25 02:30 RDW Std Deviation 45.8 fL (36.4-46.3) 03/14/25 02:30 Plt Count 160 Thou/mm3 (140-440) D 03/14/25 02:30 Neut % (Auto) 82 % (37-80) H 03/14/25 02:30 Lymph % (Auto) 13 % (10-50) 03/14/25 02:30 [place] % (Auto) 5 % (0-12) 03/14/25 02:30 Eos % (Auto) 0 % (0-10) 03/14/25 02:30 Baso % (Auto) 0 % (0-2.5) 03/14/25 02:30 Neut # (Auto) 6.8 Thou/mm3 (1.8-7.7) 03/14/25 02:30 Lymph # (Auto) 1.1 Thou/mm3 (1.0-4.8) 03/14/25 02:30 [place] # (Auto) 0.4 Thou/mm3 (0.0-0.8) 03/14/25 02:30 Eos # (Auto) 0.0 Thou/mm3 (0.0-0.5) 03/14/25 02:30 Baso # (Auto) 0.0 Thou/mm3 (0.0-0.2) 03/14/25 02:30 Immature Gran # (Auto) 0.01 Thou/mm3 (0.00-0.00) H 03/14/25 02:30 Absolute Nucleated RBC 0.00 Thou/mm3 (0.00-0.00) 03/14/25 02:30 Immature Gran % 0 % (0-0) 03/14/25 02:30 Nucleated RBC % 0 /100 WBC (0) 03/14/25 02:30 ESR 28 mm/hr (0-30) 03/14/25 02:30 PT 11.9 Seconds (9.0-12.2) 03/14/25 02:30 INR 1.1 (0.9-1.3) 03/14/25 02:30 APTT 26.6 Seconds (22.0-36.0) 03/14/25 02:30 D-Dimer 489 ng/mL (<600) 03/14/25 02:30 Sodium 138 mMol/L (136-145) 03/14/25 02:30 Potassium 3.8 mMol/L (3.4-5.1) D 03/14/25 02:30 Chloride 104 mMol/L (98-107) 03/14/25 02:30 Carbon Dioxide 26.7 mMol/L (20.0-31.0) 03/14/25 02:30 Anion Gap 7 (7-16) 03/14/25 02:30 BUN 11 mg/dL (9-23) 03/14/25 02:30 Creatinine 0.6 mg/dL (0.6-1.3) 03/14/25 02:30 Estim Creat Clear Calc 131.4 mL/min (>60) 03/14/25 02:30 eGFR > 60 See Note (60-) 03/14/25 02:30 BUN/Creatinine Ratio 18 Ratio (12-20) 03/14/25 02:30 Glucose 128 mg/dL (74-106) H 03/14/25 02:30 Calculated Osmolality 277 (275-295) 03/14/25 02:30 Lactic Acid 1.4 mMol/L (0.4-2.0) 03/14/25 02:30 Calcium 8.7 mg/dL (8.3-10.6) 03/14/25 02:30 Corrected Calcium 8.7 mg/dL (8.5-10.1) 03/14/25 02:30 Magnesium 1.9 mg/dL (1.6-2.6) 03/14/25 02:30 Total Bilirubin 0.9 mg/dL (0.3-1.2) 03/14/25 02:30 Direct Bilirubin 0.4 mg/dL (0.0-0.3) H 03/14/25 02:30 AST 203 U/L (0-34) H 03/14/25 02:30 ALT 128 U/L (10-49) H 03/14/25 02:30 Alkaline Phosphatase 144 U/L (46-116) H D 03/14/25 02:30 Troponin I < 0.002 ng/mL (0.0-0.045) 03/14/25 02:30 C-Reactive Prot, Quant 3.1 mg/dL (0.0-0.9) H 03/14/25 02:30 B-Natriuretic Peptide < 20 pg/mL (0-100) 03/14/25 02:30 Total Protein 7.0 gm/dL (5.7-8.2) 03/14/25 02:30 Albumin 4.2 gm/dL (3.5-5.0) 03/14/25 02:30 Globulin 2.8 gm/dL (2.3-3.5) 03/14/25 02:30 Albumin/Globulin Ratio 1.5 (1.2-2.2) 03/14/25 02:30 Amylase 28 U/L (30-118) L 03/14/25 02:30 Lipase 27 U/L (12-53) 03/14/25 02:30 Beta-Hydroxybutyrate/Acetoacetate 0.1 mmol/L (<0.6) 03/14/25 02:30 Procalcitonin 0.07 ng/ml (0.0-0.49) 03/14/25 02:30 TSH 0.69 uIU/mL (0.55-4.78) 03/14/25 02:30 Free T4 1.06 ng/dL (0.89-1.76) 03/14/25 02:30 Hepatitis A IgM Ab Non Reactive (Non React) 03/14/25 02:30 Hep Bs Antigen Non Reactive (Non React) 03/14/25 02:30 Hep B Core IgM Ab Non Reactive (Non React) 03/14/25 02:30 Hepatitis C Antibody Non Reactive (Non React) 03/14/25 02:30 Imaging: Procedure(s): MR MRCP Accession Number(s): [id number] cc: Emeterio Zabala MD; Asael Spence MD; Parveen Jackson MD~ MRI abdomen, without contrast. MRCP Date and time of exam: March 14, 2025 0848 hours INDICATIONS: Abdominal pain elevated liver function tests on laboratory examination today Technique: Multiple axial and coronal images of the abdomen have been obtained with the Siemens 1.5T MRI scanner. Images obtained included T1 weighted transverse images, T2-weighted transverse images, T2-weighted transverse images fat-suppressed, T2 weighted haste fat suppressed transverse images, T1 weighted images, in and out of phase images, T2-weighted coronal images, breath hold, T2 weighted haze coronal images as well as T2 weighted coronal thick slab images, MRCP. Findings: Hepatomegaly 19 cm Intrahepatic biliary tract dilatation Extrahepatic biliary tract dilatation, common hepatic duct 11 mm Meniscus defect in the distal common bile duct suspicious for 5 mm impacted stone No pancreatic mass Spleen not enlarged Minimal prominence of the left renal calyces IMPRESSION: Suspicious for 5 mm impacted stone in the distal common bile duct Dictated By: Parveen Jackson MD
--- NOTE | 2025-03-14 11:20 | PD.RESHP ---
Documentation for date of: 03/14/25 HPI History of Present Illness History of present illness: Sherly Grover is a 49-year-old female with past medical history of GERD who presented to the ED on 03/14 for nausea, vomiting, and abdominal pain. Patient states that for approximately 4 days she has been experiencing abdominal pain and as for the last few days associated nausea and nonbloody emesis as well as subjective fever and chills. Of note, she has been experiencing difficulty swallowing and states that she feels like food gets stuck in her throat for the last few days as well. Denies any diarrhea or constipation, dysuria, urinary frequency, or foul-smelling urine. Upon arrival to ED, vital signs stable, CBC did not show leukocytosis and was unremarkable, CHEM panel showed normal T. bili but mildly elevated direct bilirubin 0.4, AST 203, ALT 128, ALP 144, CRP 3.1, ESR 28. Gallbladder ultrasound showed normal CBD but MRCP showed possible 5 mm impacted stone in distal CBD. CTA C/A/P showed 6 mm right thyroid nodule, fluid-filled esophagus with abnormal thickening of lower esophageal worley, small bilateral pulmonary nodules, thickening of gastric antrum and duodenum, enlarged uterus with exophytic uterine mass versus right ovarian mass, and primary hepatocellular disease. Spoke to Dr. Calderon and states that he plans to do ERCP tomorrow. PMHx: GERD Medications: omeprazole SHx: no smoking, alcohol, or illicit drug use PSHx: , cholecystectomy 2 years ago Review of Systems Review of Systems Systems Reviewed: All systems reviewed, normal except as documented Exam Vital Signs Temp Pulse Resp BP Pulse Ox O2 Del Method 98.5 F 69 18 138/69 H 97 Room Air 03/14/25 10:59 03/14/25 10:59 03/14/25 10:59 03/14/25 10:59 03/14/25 10:59 03/14/25 10:59 Narrative Exam General: AOx3, no acute distress, able to speak full sentences HEENT: NC/AT, mucous membranes moist, bilateral sclera anicteric Cardiovascular: regular rate and rhythm, S1/S2 present, no murmurs appreciated Pulmonary: clear to auscultation bilaterally, no rales/rhonchi/wheezes Abdominal: epigastric and RUQ tenderness/Muprhy positive, soft, non-distended, no rebound/guarding, normal bowel sounds present Musculoskeletal: normal ROM, no peripheral edema Skin: warm and dry, intact, no rashes Neuro: CN II-XII intact, no focal deficits Results: Labs 03/14/25 02:30 03/14/25 02:30 Labs: Short CBC 03/14/25 Range/Units 02:30 WBC 8.3 (3.6-11.0) Thou/mm3 Hgb 12.2 (12.0-16.0) g/dL Hct 35.7 L (36.0-46.0) % Plt Count 160 D (140-440) Thou/mm3 BMP 03/14/25 02:30 Sodium 138 Potassium 3.8 D Chloride 104 Carbon Dioxide 26.7 BUN 11 Creatinine 0.6 Glucose 128 H Calcium 8.7 Cardiac Enzymes 03/14/25 Range/Units 02:30 Troponin I < 0.002 (0.0-0.045) ng/mL Liver Function 03/14/25 Range/Units 02:30 Total Bilirubin 0.9 (0.3-1.2) mg/dL Direct Bilirubin 0.4 H (0.0-0.3) mg/dL AST 203 H (0-34) U/L ALT 128 H (10-49) U/L Alkaline Phosphatase 144 H D (46-116) U/L Albumin 4.2 (3.5-5.0) gm/dL Quality Measures Quality Measures none Medications Home Medications and Allergies Home Medications ?Medication ?Instructions ?Recorded ?Confirmed ?Type acetaminophen 500 mg tablet 500 mg PO Q6H PRN Pain 05/06/23 05/06/23 History Held on 05/08/23. Instructions: Resume on 05/13/23. omeprazole 40 mg capsule,delayed 40 mg PO QDAY 05/06/23 05/06/23 History release Allergies Allergy/AdvReac Type Severity Reaction Status Date / Time No Known Allergies Allergy Verified 03/13/25 15:48 Visit Medications Acetaminophen (Acetaminophen 325 Mg Tablet) 650 mg PO Q6H PRN PRN Reason: PAIN OR FEVER > 100.4 Stop: 04/13/25 11:13 Heparin Sodium (Porcine) (Heparin Sod Inj 5000 Unit/Ml Vial) 5,000 unit SC Q12H VAISHNAVI Stop: 03/28/25 11:14 Lactated Ringer's (Lactated Ringers) 1,000 mls @ 80 mls/hr IV .[id number] [facility] Stop: 04/13/25 11:14 Morphine Sulfate (Morphine Sulf Inj 10 Mg/Ml Vial) 1 mg IVP Q4H PRN PRN Reason: PAIN SCALE 4-10(Mod-Sev Stop: 03/19/25 11:13 Ondansetron HCl (Ondansetron Inj 2 Mg/Ml Inj 2 Ml) 4 mg IVP Q6H PRN; Protocol PRN Reason: NAUSEA OR VOMITING Stop: 04/13/25 11:13 Pantoprazole Sodium (Pantoprazole Inj 40 Mg Vial) 40 mg IVP QDAY [facility] Stop: 04/14/25 08:59 Discontinued Medications Al Hydrox/Mg Hydrox/Simethicone (Mg Hyd/Al Hyd/Shira (Maalox Reg) Susp 30 Ml Udc) 30 ml PO X1 ONE Stop: 03/14/25 00:16 Last Admin: 03/14/25 00:23 Dose: 30 ml Famotidine (Famotidine Inj 10 Mg/Ml Vial 2 Ml) 20 mg IVP X1 ONE Stop: 03/14/25 02:03 Last Admin: 03/14/25 02:18 Dose: 20 mg Hydromorphone HCl (Hydromorphone Inj 2 Mg/Ml Vial) 2 mg IVP X1 ONE Stop: 03/14/25 02:03 Last Admin: 03/14/25 02:18 Dose: 2 mg Sodium Chloride (Ns) 1,000 mls @ 999 mls/hr IV .Q1H1M ONE Stop: 03/14/25 01:15 Last Infusion: 03/14/25 01:37 Dose: Infused Sodium Chloride (Ns) 1,000 mls @ 999 mls/hr IV .Q1H1M ONE Stop: 03/14/25 03:02 Last Infusion: 03/14/25 03:33 Dose: Infused Sodium Chloride (Ns) 1,000 mls @ 999 mls/hr IV .Q1H1M ONE Stop: 03/14/25 05:29 Last Infusion: 03/14/25 06:27 Dose: Infused Ketorolac Tromethamine (Ketorolac Inj 30 Mg/Ml Vial) 30 mg IVP X1 ONE Stop: 03/14/25 02:03 Last Admin: 03/14/25 02:17 Dose: 30 mg Lidocaine HCl (Lidocaine Viscous 2% 15 Ml Udc) 15 ml PO X1 ONE Stop: 03/14/25 01:16 Last Admin: 03/14/25 01:26 Dose: 15 ml Metoclopramide HCl (Metoclopramide Inj 5 Mg/Ml Vial 2 Ml) 10 mg IVP X1 ONE; Protocol Stop: 03/14/25 05:30 Last Admin: 03/14/25 05:45 Dose: 10 mg Morphine Sulfate (Morphine Sulf Inj 10 Mg/Ml Vial) 2 mg IVP Q1H PRN PRN Reason: ABDOMINAL CRAMPING Last Admin: 03/14/25 01:26 Dose: 2 mg Morphine Sulfate (Morphine Sulf Inj 10 Mg/Ml Vial) 2 mg IVP Q1H PRN PRN Reason: ABDOMINAL CRAMPING Ondansetron HCl (Ondansetron Inj 2 Mg/Ml Inj 2 Ml) 4 mg IVP X1 ONE; Protocol Stop: 03/14/25 00:16 Last Admin: 03/14/25 00:34 Dose: 4 mg Ondansetron HCl (Ondansetron Inj 2 Mg/Ml Inj 2 Ml) 4 mg IVP X1 ONE; Protocol Stop: 03/14/25 02:03 Last Admin: 03/14/25 02:17 Dose: 4 mg Pantoprazole Sodium (Pantoprazole Inj 40 Mg Vial) 40 mg IVP X1 ONE Stop: 03/14/25 00:16 Last Admin: 03/14/25 00:32 Dose: 40 mg Pantoprazole Sodium (Pantoprazole Inj 40 Mg Vial) 40 mg IVP X1 ONE Stop: 03/14/25 02:03 Last Admin: 03/14/25 02:18 Dose: 40 mg Assessment & Plan Plan Sherly Grover is a 49-year-old female with past medical history of GERD who is admitted for management of choledocholithiasis. #Choledocholithiasis status post cholecystectomy #Nausea and vomiting #Abdominal pain #Transaminitis Presents with 3 to 4 days of abdominal pain associated nausea, vomiting, subjective fevers, chills. No recorded fevers or leukocytosis. CHEM panel does show elevated LFTs, ALP, and mildly elevated direct bilirubin. Amylase and lipase within normal limits. Gallbladder ultrasound showed normal common bile duct but MRCP showed suspicion for 5 mm impacted stone in distal CBD. ? GI consulted, appreciate recommendations ? ERCP planned for tomorrow, 03/15 ? N.p.o., bowel rest ? Zosyn (03/14-) ? Blood culture 03/14: Pending ? LR at 80 cc/h ? Pain management with morphine 1 mg PRN every 4 hours #Dysphagia Endorses difficulty swallowing food for the last 2 to 3 days and that it feels stuck in her throat. ? GI following as above ? ERCP as above #Thyroid nodule #Pulmonary nodules Incidental finding in imaging ? CTA chest/abdomen/pelvis showed 6 mm right thyroid nodule, small bilateral pulmonary nodules, abnormal AC phases and fluid-filled abnormal thickening of esophageal wall, concerning for esophageal carcinoma, abnormal thickening of gastric antrum and duodenum, enlarged uterus with exophytic mass ?Patient is planned for ERCP, pelvic ultrasound from yesterday was negative but was a limited study ? Patient's recent mammogram from 12/31/2012 showed 7 mm round mass on left breast ? TSH and T4 within normal limits ? Patient will need further outpatient workup Hospital management: Disposition: Pending ERCP, IV antibiotics, following cultures Fluids: LR at 80 cc/h Diet: N.p.o., bowel rest Lines: PIV DVT prophylaxis: Heparin SC BID GI prophylaxis: Pantoprazole IV CODE STATUS: full code ----- Plan discussed with attending physician Dr. Lacey Emerson MD PGY-1 Internal Medicine Attending Provider Attestation/Addendum I attest that I was physically present for the evaluation, physical examination, lab and imaging review of the patient with the residents. I discussed the case with the residents and agree with the findings and plans of care as documented above. Patient is a 49 years old female with past medical history of GERD who presented to the ED with a complaint of nausea, vomiting and abdominal pain. In the ED, vital signs are stable, lab results show total bilirubin of 0.9, direct bilirubin 0.4, AST 203, ALT 128 and ALP 144. Underwent MRCP, which shows suspicion for 5 mm impacted stone in the distal CBD along with dilated biliary tract, common hepatic duct being 11 mm. Gastroenterology was contacted by ED, who recommended admission of the patient for choledocholithiasis and plans for ERCP in a.m. After examination of the patient and review of the clinical data I feel that this patient needs admission to the hospital for further treatment/evaluation of intractable abdominal pain, nausea and vomiting, choledocholithiasis status postcholecystectomy. We will start her on broad-spectrum antibiotics with Zosyn. IV analgesics, pain regimen and gentle IV hydration. We will keep her n.p.o. and patient is planned for ERCP tomorrow with GI. CTA chest/abdomen/pelvis was done, which showed thyroid nodule, pulmonary nodule, thickening of gastric antrum and duodenum, enlarged uterus with exophytic uterine mass versus right ovarian mass, for which patient might need outpatient follow-up. Alisson Rahman MD
[2025-03-14] MEDS: MORPHINE SULF INJ 10 MG/ML VIAL IVP (11:51)
[2025-03-14] MEDS: PIPER/TAZO 3.375 GM PREMIX 3.375 GM/50 ML BAG IV ×3 (11:53→21:20)
[2025-03-14] MEDS: HEPARIN SOD INJ 5000 UNIT/ML VIAL SC ×2 (11:54→22:20)
--- NOTE | 2025-03-14 12:16 | PC.CC ---
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 1012: Called Dr Zabala and i asked if he had tried to reach out to Dr. Calderon. He stated he hadn't but would. 1005: received order to transfer patient for ERCP. pt has 5 mm stone in distal CBD.
[2025-03-14] MEDS: RINGERS LACTATED 1000 ML 1,000 ML 80 ML IV (13:06)
[2025-03-14] MEDS: DEXTROSE 5%-NS 1,000 ML 125 ML IV (16:14)
--- NOTE | 2025-03-14 16:30 | PC.NURSE ---
Attempted to call Dr. Calderon x2, no voicemail available.
[2025-03-14] MEDS: ACETAMINOPHEN 325 MG TABLET 650 MG PO (21:20)
--- NOTE | 2025-03-14 22:29 | PD.IMCONS ---
HPI Data of Consult Requesting Physician: Alisson Rahman MD Primary Care Provider: Asael Spence MD Consult Narrative Reason for consult: Pain abdomen, abnormal LFTs, abnormal CTAP History of present illness: 49 years old female evaluated at the request of the internal medicine team in the emergency room For abdominal pain and abnormal LFTs patient has a 4-day history of nausea vomiting nonbloody bilious pain with low-grade fever and chills patient had CT abdomen pelvis which showed Somewhat effective esophagus thickening of the esophageal wall as well as gastritis patient has recently for some dysphagia as well she does not drink any alcohol She is postcholecystectomy initial LFTs were normal but then the second set went up to total bilirubin 0.4 AST ALT 223 and 128 and alk phos of 144 MRCP shows dilated common hepatic duct and possibly impacted 5 mm stone within the discussed in the distal common cc:: cc: Alisson Rahman MD Review of Systems Review of Systems Systems Reviewed: All systems reviewed, normal except as documented Past Medical History Surgical History OTHER SURGICAL HX: History of present illness Meds Home Medications and Allergies Home Medications ?Medication ?Instructions ?Recorded ?Confirmed ?Type omeprazole 40 mg capsule,delayed 40 mg PO QDAY 05/06/23 03/14/25 History release Allergies Allergy/AdvReac Type Severity Reaction Status Date / Time No Known Allergies Allergy Verified 03/13/25 15:48 Exam Vital Signs Temp Pulse Resp BP Pulse Ox O2 Del Method 97.5 F 71 16 138/82 H 97 Room Air 03/14/25 20:00 03/14/25 20:00 03/14/25 20:00 03/14/25 20:00 03/14/25 20:00 03/14/25 20:00 Constitutional Comments: Alert oriented Routine Respiratory Exam Comments: Normal to auscultation Routine Abdominal Exam Comments: Soft midepigastric tenderness positive bowel sounds Results Labs 03/14/25 02:30 03/14/25 02:30 Labs: Short CBC 03/14/25 Range/Units 02:30 WBC 8.3 (3.6-11.0) Thou/mm3 Hgb 12.2 (12.0-16.0) g/dL Hct 35.7 L (36.0-46.0) % Plt Count 160 D (140-440) Thou/mm3 BMP 03/14/25 02:30 Sodium 138 Potassium 3.8 D Chloride 104 Carbon Dioxide 26.7 BUN 11 Creatinine 0.6 Glucose 128 H Calcium 8.7 Cardiac Enzymes 03/14/25 Range/Units 02:30 Troponin I < 0.002 (0.0-0.045) ng/mL Liver Function 03/14/25 Range/Units 02:30 Total Bilirubin 0.9 (0.3-1.2) mg/dL Direct Bilirubin 0.4 H (0.0-0.3) mg/dL AST 203 H (0-34) U/L ALT 128 H (10-49) U/L Alkaline Phosphatase 144 H D (46-116) U/L Albumin 4.2 (3.5-5.0) gm/dL Assessment and Plan Additional Assessment & Plan Additional Plan: Abnormal LFTs most likely due to cholelithiasis and possible element of cholangitis because of the history of fever chills intermittently thickening of the esophagus on CTA chest Can be evaluated during ERCP Plan Recommend to consult my colleague Dr. Calderon For further management of this patient continue IV antibiotics thank you for the opportunity to participate in the care of this patient
[2025-03-15] VITALS (17 sets, daily range): BP systolic 116–160; BP diastolic 67–97; PULSE 59–94; RESP 12–24; TEMP 36.1–36.7; O2SAT 94–99
[2025-03-15] MEDS: DEXTROSE 5%-NS 1,000 ML 125 ML IV (00:53)
[2025-03-15 05:16] LABS: Basophils % (Auto) 1 % (0-2.5); Eosinophils # (Auto) 0.5 Thou/mm3 (0.0-0.5); Eosinophils % (Auto) 9 % (0-10); Hematocrit 34.1 % (36.0-46.0); Hemoglobin 11.3 g/dL (12.0-16.0); Immature Granulocytes % (Auto) 0 % (0-0); Immature Granulocytes Auto 0.01 Thou/mm3 (0.00-0.00); Lymphocytes # (Auto) 2.2 Thou/mm3 (1.0-4.8); Lymphocytes % (Auto) 38 % (10-50); Mean Corpuscular HGB Conc 33.1 g/dl (31.0-37.0); Mean Corpuscular Hemoglobin 31.9 pg (25.0-35.0); Mean Corpuscular Volume 96 fL (80-100); Monocytes # (Auto) 0.5 Thou/mm3 (0.0-0.8); Monocytes % (Auto) 9 % (0-12); Neutrophils # (Auto) 2.5 Thou/mm3 (1.8-7.7); Neutrophils % (Auto) 43 % (37-80); Nucleated Red Blood Cell % 0 /100 WBC (0); Platelet Count 145 Thou/mm3 (140-440); RDW Standard Deviation 49.1 fL (36.4-46.3); Red Blood Count 3.54 Miln/mm3 (4.00-5.20); White Blood Count 5.8 Thou/mm3 (3.6-11.0)
[2025-03-15] MEDS: PIPER/TAZO 3.375 GM PREMIX 3.375 GM/50 ML BAG IV ×3 (05:24→22:15)
[2025-03-15 05:29] LABS: INR 1.1 (0.9-1.3); Partial Thromboplastin Time 30.2 Seconds (22.0-36.0); Prothrombin Time 11.8 Seconds (9.0-12.2)
[2025-03-15 05:43] LABS: Alanine Aminotransferase 297 U/L (10-49); Albumin, Serum 3.6 gm/dL (3.5-5.0); Albumin/Globulin Ratio 1.3 (1.2-2.2); Alkaline Phosphatase 168 U/L (46-116); Anion Gap 8 (7-16); Aspartate Amino Transferase 186 U/L (0-34); BUN/Creatinine Ratio 12 Ratio (12-20); Bilirubin,Total 0.4 mg/dL (0.3-1.2); Blood Urea Nitrogen 7 mg/dL (9-23); Calcium 8.6 mg/dL (8.3-10.6); Calcium (Corrected) 8.9 mg/dL (8.5-10.1); Carbon Dioxide 27.3 mMol/L (20.0-31.0); Cardiac Risk Estimate 3.4 RATIO (3.7-5.6); Chloride 107 mMol/L (98-107); Cholesterol 132 mg/dL (132-200); Creatinine (Component) 0.6 mg/dL (0.6-1.3); Estimated Creatinine Clearance 132.3 mL/min (>60); Globulin 2.7 gm/dL (2.3-3.5); Glucose 109 mg/dL (74-106); HDL Cholesterol 39 mg/dL (40-60); LDL Cholesterol,Calculated 76 mg/dL (0-130); Magnesium 2.1 mg/dL (1.6-2.6); Osmolality,Calculated 282 (275-295); Phosphorous 2.7 mg/dL (2.4-5.1); Potassium 3.5 mMol/L (3.4-5.1); Sodium 142 mMol/L (136-145); Thyroid Stimulating Hormone 1.27 uIU/mL (0.55-4.78); Total Protein 6.3 gm/dL (5.7-8.2); Triglycerides 85 mg/dL (30-150); eGFR > 60 See Note
--- NOTE | 2025-03-15 08:54 | PC.SS ---
Patient Sherly Keenan is a 49 Year old female admitted for Coledocolithiasis. SS met with patient at bedside to discuss discharge plan and verify demographic information, patient appeared to be alert and oriented to time,place and situation. She reports she lives at home with her , Milton Inman who she reports is her surrogate decision maker, [phone]. Patient reports she does not utilize any source of DME to assist with ambulation. Patient is able to complete all ADL's independently. Choice of pharmacy is [facility], PCP is Asael Spence. At time of discharge patient will return back home, will provide transportation. Next of kin: , Milton Inman Discharge Plan: Home PCP: Asael Spence
[2025-03-15] MEDS: PANTOPRAZOLE INJ 40 MG VIAL IVP (09:10)
[2025-03-15] MEDS: RINGERS LACTATED 1000 ML 1,000 ML 250 ML IV ×3 (10:30→20:35)
--- NOTE | 2025-03-15 10:32 | ESPR_ITS ---
Documentation for date of: 03/15/25 Subjective Subjective Interval history: No acute overnight events noted. Seen and examined at bedside and states that her nausea, vomiting, and abdominal pain are improved but still endrorses some abdominal pain. Denies fever. VSS, CBC unremarkable/stable, chem panel showed improved total bilirubin and AST but worsening ALT and ALP. Pending ERCP later this afternoon and will await further recs but will continue with zosyn and follow cultures. Exam Vital Signs Temp Pulse Resp BP Pulse Ox O2 Del Method 97.2 F 61 18 116/67 97 Room Air 03/15/25 08:00 03/15/25 08:00 03/15/25 08:00 03/15/25 08:00 03/15/25 08:00 03/15/25 08:00 Narrative Exam General: AOx3, no acute distress, able to speak full sentences HEENT: NC/AT, mucous membranes moist, bilateral sclera anicteric Cardiovascular: regular rate and rhythm, S1/S2 present, no murmurs appreciated Pulmonary: clear to auscultation bilaterally, no rales/rhonchi/wheezes Abdominal: epigastric and RUQ tenderness/Muprhy positive, soft, non-distended, no rebound/guarding, normal bowel sounds present Musculoskeletal: normal ROM, no peripheral edema Skin: warm and dry, intact, no rashes Neuro: CN II-XII intact, no focal deficits Objective Labs 03/16/25 05:40 03/16/25 05:40 Labs: Laboratory Results - last 24 hr 03/15/25 04:22 WBC 5.8 RBC 3.54 L Hgb 11.3 L Hct 34.1 L MCV 96 MCH 31.9 MCHC 33.1 RDW Std Deviation 49.1 H Plt Count 145 Neut % (Auto) 43 Lymph % (Auto) 38 [place] % (Auto) 9 Eos % (Auto) 9 Baso % (Auto) 1 Neut # (Auto) 2.5 Lymph # (Auto) 2.2 [place] # (Auto) 0.5 Eos # (Auto) 0.5 Baso # (Auto) 0.0 Immature Gran # (Auto) 0.01 H Absolute Nucleated RBC 0.00 Immature Gran % 0 Nucleated RBC % 0 PT 11.8 INR 1.1 APTT 30.2 Sodium 142 Potassium 3.5 Chloride 107 Carbon Dioxide 27.3 Anion Gap 8 BUN 7 L Creatinine 0.6 Estim Creat Clear Calc 132.3 eGFR > 60 BUN/Creatinine Ratio 12 Glucose 109 H Calculated Osmolality 282 Calcium 8.6 Corrected Calcium 8.9 Phosphorus 2.7 Magnesium 2.1 Total Bilirubin 0.4 D AST 186 H ALT 297 H Alkaline Phosphatase 168 H D Total Protein 6.3 Albumin 3.6 D Globulin 2.7 Albumin/Globulin Ratio 1.3 Triglycerides 85 Cholesterol 132 LDL Cholesterol, Calc 76 HDL Cholesterol 39 L Cholesterol/HDL Ratio 3.4 L TSH 1.27 Quality Measures Quality Measures none Assessment & Plan Assessment Current Active Medications: Generic Name Dose Route Start Last Admin Trade Name Freq PRN Reason Stop Dose Admin Acetaminophen 650 mg 03/14/25 11:14 03/14/25 21:20 Acetaminophen 325 Mg Tablet PO 04/13/25 11:13 650 mg Q6H PRN Administration PAIN 1-3 OR FEVER > 100.4 Heparin Sodium (Porcine) 5,000 unit 03/14/25 11:15 03/14/25 22:20 Heparin Sod Inj 5000 Unit/Ml Vial SC 03/28/25 11:14 5,000 unit Q12H VAISHNAVI Administration Piperacillin/Tazobactam/Dextrose 3.375 gm in 50 mls @ 12.5 mls/hr 03/14/25 15:30 03/15/25 05:24 Zosyn IV 03/21/25 15:29 12.5 mls/hr Q8HR VAISHNAVI Administration Lactated Ringer's 1,000 mls @ 250 mls/hr 03/15/25 09:10 03/15/25 10:30 Lactated Ringers IV 04/14/25 09:09 250 mls/hr .Q4H VAISHNAVI Administration Morphine Sulfate 1 mg 03/15/25 10:26 Morphine Sulf Inj 10 Mg/Ml Vial IVP 03/19/25 11:13 Q4H PRN PAIN SCALE 4-10(Mod-Sev Ondansetron HCl 4 mg 03/14/25 11:14 03/14/25 11:48 Ondansetron Inj 2 Mg/Ml Inj 2 Ml IVP 04/13/25 11:13 4 mg Q6H PRN Administration NAUSEA OR VOMITING Protocol Pantoprazole Sodium 40 mg 03/15/25 09:00 03/15/25 09:10 Pantoprazole Inj 40 Mg Vial IVP 04/14/25 08:59 40 mg QDAY VAISHNAVI Administration Plan Sherly Grover is a 49-year-old female with past medical history of GERD who is admitted for management of choledocholithiasis. #Choledocholithiasis status post cholecystectomy #Nausea and vomiting #Abdominal pain #Transaminitis Presents with 3 to 4 days of abdominal pain associated nausea, vomiting, subjective fevers, chills. No recorded fevers or leukocytosis. CHEM panel does show elevated LFTs, ALP, and mildly elevated direct bilirubin. Amylase and lipase within normal limits. Gallbladder ultrasound showed normal common bile duct but MRCP showed suspicion for 5 mm impacted stone in distal CBD. ? GI consulted, appreciate recommendations ? ERCP planned 03/15 ? N.p.o., bowel rest ? Zosyn (03/14-) ? Blood culture 03/14: Pending ? LR at 80 cc/h ? Pain management with morphine 1 mg PRN every 4 hours #Dysphagia Endorses difficulty swallowing food for the last 2 to 3 days and that it feels stuck in her throat. ? GI following as above ? ERCP as above #Thyroid nodule #Pulmonary nodules CTA C/A/P showed 6 mm right thyroid nodule, small bilateral pulmonary nodules, abnormal AC phases and fluid-filled abnormal thickening of esophageal wall, concerning for esophageal carcinoma, abnormal thickening of gastric antrum and duodenum, enlarged uterus with exophytic mass. Planned for ERCP, pelvis US done recently negative but was limited study. Patient's recent mammogram from 12/31/2012 showed 7 mm round mass on left breast. TSH and T4 within normal limits. ? Patient will need further outpatient workup Hospital management: Disposition: Pending ERCP, IV antibiotics, following cultures Fluids: LR at 80 cc/h Diet: N.p.o., bowel rest Lines: PIV DVT prophylaxis: Heparin SC BID GI prophylaxis: Pantoprazole IV CODE STATUS: full code ----- Plan discussed with attending physician Dr. Linwood Emerson MD PGY-1 Internal Medicine Attending Provider Attestation/Addendum I have examined the patient, reviewed labs and imaging findings, discussed the case with the resident(s), and reviewed entered orders. I agree with the plan of care as outlined in this note, with these additional summaries/recommendations: Patient seen at bedside. No acute overnight events. She reports her abdominal pain is currently controlled. Patient was diagnosed with choledocholithiasis and transaminitis on admission. MRCP showed 5 mm impacted stone in the distal common bile duct. Gastroenterology consulted with plans for ERCP today. Continue pain management and IV fluids. Continue IV Zosyn. Patient also endorsing mild dysphagia and we will follow-up with speech therapy status post EGD. Nodule, pulmonary nodules, and enlarged uterus indicating uterine mass versus ovarian mass. Patient will need to follow-up outpatient for further workup and management. Patient's transaminitis is most likely secondary to choledocholithiasis. Acute hepatitis panel negative. Anticipate improvement in transaminitis after ERCP. Patient updated on the plan and in agreement. All questions answered to satisfaction. Please see residents note for additional details of management. Dr. Linwood MD
--- NOTE | 2025-03-15 13:00 | XR_ITS ---
Examination: ERCP Fluoroscopy 28 spot fluoroscopic films of the abdomen Date and time: March 15, 2025 1535 hours INDICATIONS: Epigastric pain and vomiting beginning March 12, 2025, MRCP March 14, 2025 5 mm impacted stone in the distal common bile duct TECHNIQUE AND FINDINGS: 28 spot fluoroscopic films of the abdomen Fluoroscopy 34.7 seconds radiation dose 6.85 milligray Contrast opacification of the intra and extra hepatic biliary tree with balloon sweeping of the common hepatic common bile duct IMPRESSION: ERCP as above
--- NOTE | 2025-03-15 14:19 | PD.IMCONS ---
HPI Data of Consult Requesting Physician: Oz Palumbo MD Primary Care Provider: Asael Spence MD Consult Narrative History of present illness: Pt is a 49 year old female with no ph here with abdominal pain s/p MRCP showed stone, h/o cholecystectomy, GI called for ERCP. cc:: cc: Oz Palumbo MD Review of Systems Review of Systems Narrative Review of Systems: 12 POINT REVIEWED AND NEGATIVE Meds Home Medications and Allergies Home Medications ?Medication ?Instructions ?Recorded ?Confirmed ?Type omeprazole 40 mg capsule,delayed 40 mg PO QDAY 05/06/23 03/14/25 History release Allergies Allergy/AdvReac Type Severity Reaction Status Date / Time No Known Allergies Allergy Verified 03/13/25 15:48 Exam Vital Signs Temp Pulse Resp BP Pulse Ox O2 Del Method 97.2 F 63 12 136/79 H 98 Room Air 03/15/25 08:00 03/15/25 14:04 03/15/25 14:04 03/15/25 14:04 03/15/25 14:04 03/15/25 08:00 Routine Abdominal Exam Comments: TENDER IN RUQ Results Labs 03/15/25 04:22 03/15/25 04:22 Labs: Short CBC 03/15/25 Range/Units 04:22 WBC 5.8 (3.6-11.0) Thou/mm3 Hgb 11.3 L (12.0-16.0) g/dL Hct 34.1 L (36.0-46.0) % Plt Count 145 (140-440) Thou/mm3 BMP 03/15/25 04:22 Sodium 142 Potassium 3.5 Chloride 107 Carbon Dioxide 27.3 BUN 7 L Creatinine 0.6 Glucose 109 H Calcium 8.6 Liver Function 03/15/25 Range/Units 04:22 Total Bilirubin 0.4 D (0.3-1.2) mg/dL AST 186 H (0-34) U/L ALT 297 H (10-49) U/L Alkaline Phosphatase 168 H D (46-116) U/L Albumin 3.6 D (3.5-5.0) gm/dL Assessment and Plan Additional Assessment & Plan Additional Plan: Abdominal pain MRCO showed stone CT scan showed: Impression : Abnormal esophagus, fluid-filled with abnormal thickening of the lower esophageal wall, recommend endoscopy follow-up as esophageal carcinoma would be included in the differential Plan of care: Abx IVF Will proceed with EGD to evaluate GEJ Will proceed with ERCP to remove CBD stone Risks of ERCP including bleeding, Pancreatitis and perforation explained and verbalized understanding. Will follow
[2025-03-15] MEDS: INDOMETHACIN 50 MG SUPP 100 MG PR (14:40)
--- NOTE | 2025-03-15 15:08 | SUR.PHASEI ---
pt received from OR in recovery bay 2. pt asleep but responds to voice, breathing unlabored on oxymask 8l, v/s stable. report received from Melisa DOMINGUEZ and Dr. Viera.
[2025-03-15] MEDS: fentaNYL CIT INJ 50 mCg/ML AMP 2ML 25 MCG IVP ×4 (15:43→16:24)
--- NOTE | 2025-03-15 15:57 | PC.SS ---
SS follow up note; ERCP today with Dr Calderon. Patient will discharge home when medically cleared.
--- NOTE | 2025-03-15 16:42 | SUR.PHASEI ---
pt awake and alert, breathing unlabored on room air. v/s stable. report called to Loraine Prado. pt will be transferred to room at this time.
[2025-03-15] MEDS: MORPHINE SULF INJ 10 MG/ML VIAL IVP (18:34)
[2025-03-15] MEDS: HYDROmorphone INJ 2 MG/ML VIAL 0.25 MG IVP (20:49)
--- NOTE | 2025-03-15 21:09 | PD.IMPROG ---
Documentation for date of: 03/15/25 Subjective Subjective Interval history: Patient's status post ERCP ERS removal of the debris/stone from the common bile duct and swiping of the common bile duct Doing well postprocedure Exam Vital Signs Temp Pulse Resp BP Pulse Ox O2 Del Method O2 Flow Rate 97.5 F 70 18 157/84 H 95 Room Air 4 03/15/25 16:25 03/15/25 16:25 03/15/25 16:25 03/15/25 16:25 03/15/25 16:25 03/15/25 16:00 03/15/25 16:00 Objective Labs 03/15/25 04:22 03/15/25 04:22 Labs: Laboratory Results - last 24 hr 03/15/25 04:22 WBC 5.8 RBC 3.54 L Hgb 11.3 L Hct 34.1 L MCV 96 MCH 31.9 MCHC 33.1 RDW Std Deviation 49.1 H Plt Count 145 Neut % (Auto) 43 Lymph % (Auto) 38 [place] % (Auto) 9 Eos % (Auto) 9 Baso % (Auto) 1 Neut # (Auto) 2.5 Lymph # (Auto) 2.2 [place] # (Auto) 0.5 Eos # (Auto) 0.5 Baso # (Auto) 0.0 Immature Gran # (Auto) 0.01 H Absolute Nucleated RBC 0.00 Immature Gran % 0 Nucleated RBC % 0 PT 11.8 INR 1.1 APTT 30.2 Sodium 142 Potassium 3.5 Chloride 107 Carbon Dioxide 27.3 Anion Gap 8 BUN 7 L Creatinine 0.6 Estim Creat Clear Calc 132.3 eGFR > 60 BUN/Creatinine Ratio 12 Glucose 109 H Calculated Osmolality 282 Calcium 8.6 Corrected Calcium 8.9 Phosphorus 2.7 Magnesium 2.1 Total Bilirubin 0.4 D AST 186 H ALT 297 H Alkaline Phosphatase 168 H D Total Protein 6.3 Albumin 3.6 D Globulin 2.7 Albumin/Globulin Ratio 1.3 Triglycerides 85 Cholesterol 132 LDL Cholesterol, Calc 76 HDL Cholesterol 39 L Cholesterol/HDL Ratio 3.4 L TSH 1.27 Impressions Impression: Choledocholithiasis status post ERCP ERS and swiping of the common bile duct doing well Assessment & Plan A&P Narrative Abdominal pain MRCO showed stone CT scan showed: Impression : Abnormal esophagus, fluid-filled with abnormal thickening of the lower esophageal wall, recommend endoscopy follow-up as esophageal carcinoma would be included in the differential Plan of care: Abx IVF Will proceed with EGD to evaluate GEJ Will proceed with ERCP to remove CBD stone Risks of ERCP including bleeding, Pancreatitis and perforation explained and verbalized understanding. Will follow Time Spent With Patient Time: Total time spent is greater than 50% in coordination of care (as documented) at patient's floor/unit and/or counseling patient:
[2025-03-15] MEDS: HEPARIN SOD INJ 5000 UNIT/ML VIAL SC (22:15)
[2025-03-16] VITALS (7 sets, daily range): BP systolic 104–132; BP diastolic 64–82; PULSE 53–78; RESP 16–18; TEMP 36.1–36.6; O2SAT 96–98
[2025-03-16] MEDS: MORPHINE SULF INJ 10 MG/ML VIAL IVP ×2 (00:49→05:45)
[2025-03-16] MEDS: RINGERS LACTATED 1000 ML 1,000 ML 250 ML IV ×6 (00:49→23:36)
[2025-03-16] MEDS: PIPER/TAZO 3.375 GM PREMIX 3.375 GM/50 ML BAG IV ×3 (05:22→21:14)
[2025-03-16 06:08] LABS: Basophils % (Auto) 0 % (0-2.5); Eosinophils % (Auto) 0 % (0-10); Hematocrit 35.2 % (36.0-46.0); Immature Granulocytes % (Auto) 0 % (0-0); Immature Granulocytes Auto 0.02 Thou/mm3 (0.00-0.00); Lymphocytes # (Auto) 2.5 Thou/mm3 (1.0-4.8); Lymphocytes % (Auto) 32 % (10-50); Mean Corpuscular HGB Conc 34.1 g/dl (31.0-37.0); Mean Corpuscular Hemoglobin 32.2 pg (25.0-35.0); Mean Corpuscular Volume 94 fL (80-100); Monocytes # (Auto) 0.6 Thou/mm3 (0.0-0.8); Monocytes % (Auto) 8 % (0-12); Neutrophils # (Auto) 4.6 Thou/mm3 (1.8-7.7); Neutrophils % (Auto) 59 % (37-80); Nucleated Red Blood Cell % 0 /100 WBC (0); Platelet Count 176 Thou/mm3 (140-440); RDW Standard Deviation 46.2 fL (36.4-46.3); Red Blood Count 3.73 Miln/mm3 (4.00-5.20); White Blood Count 7.8 Thou/mm3 (3.6-11.0)
[2025-03-16 06:43] LABS: Alanine Aminotransferase 254 U/L (10-49); Albumin, Serum 3.7 gm/dL (3.5-5.0); Albumin/Globulin Ratio 1.3 (1.2-2.2); Alkaline Phosphatase 194 U/L (46-116); Anion Gap 11 (7-16); Aspartate Amino Transferase 109 U/L (0-34); BUN/Creatinine Ratio 15 Ratio (12-20); Bilirubin,Total 0.4 mg/dL (0.3-1.2); Blood Urea Nitrogen 9 mg/dL (9-23); Calcium 8.9 mg/dL (8.3-10.6); Calcium (Corrected) 9.1 mg/dL (8.5-10.1); Carbon Dioxide 27.4 mMol/L (20.0-31.0); Chloride 104 mMol/L (98-107); Creatinine (Component) 0.6 mg/dL (0.6-1.3); Estimated Creatinine Clearance 132.3 mL/min (>60); Globulin 2.8 gm/dL (2.3-3.5); Glucose 98 mg/dL (74-106); Osmolality,Calculated 281 (275-295); Phosphorous 4.8 mg/dL (2.4-5.1); Potassium 3.5 mMol/L (3.4-5.1); Sodium 142 mMol/L (136-145); Total Protein 6.5 gm/dL (5.7-8.2); eGFR > 60 See Note
[2025-03-16] MEDS: HYDROmorphone INJ 2 MG/ML VIAL 0.25 MG IVP (09:27)
[2025-03-16] MEDS: PANTOPRAZOLE INJ 40 MG VIAL IVP (09:28)
--- NOTE | 2025-03-16 11:35 | PC.SS ---
SS follow up note; ERCP with Yumiko, Advancing diet, possible discharge home today.
[2025-03-16] MEDS: HEPARIN SOD INJ 5000 UNIT/ML VIAL SC ×2 (11:51→23:07)
--- NOTE | 2025-03-16 12:07 | PD.IMPROG ---
Documentation for date of: 03/16/25 Subjective Subjective Interval history: Patient status post ERCP with stone extraction of the CBD doing well Exam Vital Signs Temp Pulse Resp BP Pulse Ox O2 Del Method O2 Flow Rate 97 F 60 16 112/67 98 Room Air 4 03/16/25 07:55 03/16/25 07:55 03/16/25 07:55 03/16/25 07:55 03/16/25 07:55 03/16/25 07:55 03/15/25 16:00 Objective Labs 03/16/25 05:40 03/16/25 05:40 Labs: Laboratory Results - last 24 hr 03/16/25 05:40 WBC 7.8 RBC 3.73 L Hgb 12.0 Hct 35.2 L MCV 94 MCH 32.2 MCHC 34.1 RDW Std Deviation 46.2 Plt Count 176 D Neut % (Auto) 59 Lymph % (Auto) 32 [place] % (Auto) 8 Eos % (Auto) 0 Baso % (Auto) 0 Neut # (Auto) 4.6 Lymph # (Auto) 2.5 [place] # (Auto) 0.6 Eos # (Auto) 0.0 Baso # (Auto) 0.0 Immature Gran # (Auto) 0.02 H Absolute Nucleated RBC 0.00 Immature Gran % 0 Nucleated RBC % 0 Sodium 142 Potassium 3.5 Chloride 104 Carbon Dioxide 27.4 Anion Gap 11 BUN 9 Creatinine 0.6 Estim Creat Clear Calc 132.3 eGFR > 60 BUN/Creatinine Ratio 15 Glucose 98 Calculated Osmolality 281 Calcium 8.9 Corrected Calcium 9.1 Phosphorus 4.8 Magnesium 2.0 Total Bilirubin 0.4 AST 109 H ALT 254 H Alkaline Phosphatase 194 H D Total Protein 6.5 Albumin 3.7 Globulin 2.8 Albumin/Globulin Ratio 1.3 Impressions Impression: Choledocholithiasis status post ERCP ERS and stone extraction we will sign off the case I have nothing to contribute to this case any further Assessment & Plan A&P Narrative Abdominal pain MRCO showed stone CT scan showed: Impression : Abnormal esophagus, fluid-filled with abnormal thickening of the lower esophageal wall, recommend endoscopy follow-up as esophageal carcinoma would be included in the differential Plan of care: Abx IVF Will proceed with EGD to evaluate GEJ Will proceed with ERCP to remove CBD stone Risks of ERCP including bleeding, Pancreatitis and perforation explained and verbalized understanding. Will follow Time Spent With Patient Time: Total time spent is greater than 50% in coordination of care (as documented) at patient's floor/unit and/or counseling patient:
--- NOTE | 2025-03-16 13:18 | ESPR_ITS ---
Documentation for date of: 03/16/25 Subjective Subjective Interval history: Pt was seen and examined, s/P EGD and ERCP Exam Vital Signs Temp Pulse Resp BP Pulse Ox O2 Del Method O2 Flow Rate 97.3 F 61 17 132/82 H 97 Room Air 4 03/16/25 12:00 03/16/25 12:00 03/16/25 12:00 03/16/25 12:00 03/16/25 12:00 03/16/25 12:00 03/15/25 16:00 Routine Abdominal Exam Comments: BENIGN Objective Labs 03/16/25 05:40 03/16/25 05:40 Labs: Laboratory Results - last 24 hr 03/16/25 05:40 WBC 7.8 RBC 3.73 L Hgb 12.0 Hct 35.2 L MCV 94 MCH 32.2 MCHC 34.1 RDW Std Deviation 46.2 Plt Count 176 D Neut % (Auto) 59 Lymph % (Auto) 32 [place] % (Auto) 8 Eos % (Auto) 0 Baso % (Auto) 0 Neut # (Auto) 4.6 Lymph # (Auto) 2.5 [place] # (Auto) 0.6 Eos # (Auto) 0.0 Baso # (Auto) 0.0 Immature Gran # (Auto) 0.02 H Absolute Nucleated RBC 0.00 Immature Gran % 0 Nucleated RBC % 0 Sodium 142 Potassium 3.5 Chloride 104 Carbon Dioxide 27.4 Anion Gap 11 BUN 9 Creatinine 0.6 Estim Creat Clear Calc 132.3 eGFR > 60 BUN/Creatinine Ratio 15 Glucose 98 Calculated Osmolality 281 Calcium 8.9 Corrected Calcium 9.1 Phosphorus 4.8 Magnesium 2.0 Total Bilirubin 0.4 AST 109 H ALT 254 H Alkaline Phosphatase 194 H D Total Protein 6.5 Albumin 3.7 Globulin 2.8 Albumin/Globulin Ratio 1.3 Assessment & Plan A&P Narrative Abdominal pain MRCO showed stone CT scan showed: Impression : Abnormal esophagus, fluid-filled with abnormal thickening of the lower esophageal wall, recommend endoscopy follow-up as esophageal carcinoma would be included in the differential Plan of care: EGD did not show any mass and normal Mild gastritis ERCP performed, stone extracted Follow with PCP Call GI with any questions Time Spent With Patient Time: Total time spent is greater than 50% in coordination of care (as documented) at patient's floor/unit and/or counseling patient:
--- NOTE | 2025-03-16 16:14 | ESPR_ITS ---
Documentation for date of: 03/16/25 Subjective Subjective Interval history: No acute overnight events. Seen and examined at bedside and patient states that still has abdominal discomfort but is better compared to prior after ERCP. Denies any nausea or vomiting and tolerating her liquid diet this morning will advance as tolerated. Otherwise we will continue to monitor and if patient continues to tolerate diet would likely plan within next 24 to 48 hours. She has been afebrile, and other vital signs stable, CBC without leukocytosis, and CHEM panel showed improving LFTs, stable total bilirubin, slightly elevated ALP. Exam Vital Signs Temp Pulse Resp BP Pulse Ox O2 Del Method O2 Flow Rate 97.3 F 61 17 132/82 H 97 Room Air 4 03/16/25 12:00 03/16/25 12:00 03/16/25 12:00 03/16/25 12:00 03/16/25 12:03/16/25 12:00 03/15/25 16:00 Narrative Exam General: AOx3, no acute distress, able to speak full sentences HEENT: NC/AT, mucous membranes moist, bilateral sclera anicteric Cardiovascular: regular rate and rhythm, S1/S2 present, no murmurs appreciated Pulmonary: clear to auscultation bilaterally, no rales/rhonchi/wheezes Abdominal: epigastric and RUQ tenderness, soft, non-distended, no rebound/guarding, normal bowel sounds present Musculoskeletal: normal ROM, no peripheral edema Skin: warm and dry, intact, no rashes Neuro: CN II-XII intact, no focal deficits Objective Labs 03/17/25 05:20 03/17/25 05:20 Labs: Laboratory Results - last 24 hr 03/16/25 05:40 WBC 7.8 RBC 3.73 L Hgb 12.0 Hct 35.2 L MCV 94 MCH 32.2 MCHC 34.1 RDW Std Deviation 46.2 Plt Count 176 D Neut % (Auto) 59 Lymph % (Auto) 32 [place] % (Auto) 8 Eos % (Auto) 0 Baso % (Auto) 0 Neut # (Auto) 4.6 Lymph # (Auto) 2.5 [place] # (Auto) 0.6 Eos # (Auto) 0.0 Baso # (Auto) 0.0 Immature Gran # (Auto) 0.02 H Absolute Nucleated RBC 0.00 Immature Gran % 0 Nucleated RBC % 0 Sodium 142 Potassium 3.5 Chloride 104 Carbon Dioxide 27.4 Anion Gap 11 BUN 9 Creatinine 0.6 Estim Creat Clear Calc 132.3 eGFR > 60 BUN/Creatinine Ratio 15 Glucose 98 Calculated Osmolality 281 Calcium 8.9 Corrected Calcium 9.1 Phosphorus 4.8 Magnesium 2.0 Total Bilirubin 0.4 AST 109 H ALT 254 H Alkaline Phosphatase 194 H D Total Protein 6.5 Albumin 3.7 Globulin 2.8 Albumin/Globulin Ratio 1.3 Quality Measures Quality Measures none Assessment & Plan Assessment Current Active Medications: Generic Name Dose Route Start Last Admin Trade Name Freq PRN Reason Stop Dose Admin Acetaminophen 650 mg 03/14/25 11:14 03/14/25 21:20 Acetaminophen 325 Mg Tablet PO 04/13/25 11:13 650 mg Q6H PRN Administration PAIN 1-3 OR FEVER > 100.4 Heparin Sodium (Porcine) 5,000 unit 03/14/25 11:15 03/16/25 11:51 Heparin Sod Inj 5000 Unit/Ml Vial SC 03/28/25 11:14 5,000 unit Q12H VAISHNAVI Administration Hydromorphone HCl 0.25 mg 03/15/25 20:38 03/16/25 09:27 Hydromorphone Inj 2 Mg/Ml Vial IVP 03/20/25 20:37 0.25 mg Q4HR PRN Administration BREAKTHROUGH PAIN 4-10 Piperacillin/Tazobactam/Dextrose 3.375 gm in 50 mls @ 12.5 mls/hr 03/14/25 15:30 03/16/25 13:38 Zosyn IV 03/21/25 15:29 12.5 mls/hr Q8HR VAISHNAVI Administration Lactated Ringer's 1,000 mls @ 250 mls/hr 03/15/25 09:10 03/16/25 13:38 Lactated Ringers IV 04/14/25 09:09 250 mls/hr .Q4H VAISHNAVI Administration Morphine Sulfate 1 mg 03/15/25 10:26 03/16/25 05:45 Morphine Sulf Inj 10 Mg/Ml Vial IVP 03/19/25 11:13 1 mg Q4H PRN Administration PAIN SCALE 4-10(Mod-Sev Ondansetron HCl 4 mg 03/14/25 11:14 03/14/25 11:48 Ondansetron Inj 2 Mg/Ml Inj 2 Ml IVP 04/13/25 11:13 4 mg Q6H PRN Administration NAUSEA OR VOMITING Protocol Pantoprazole Sodium 40 mg 03/15/25 09:00 03/16/25 09:28 Pantoprazole Inj 40 Mg Vial IVP 04/14/25 08:59 40 mg QDAY VAISHNAVI Administration Plan Sherly Grover is a 49-year-old female with past medical history of GERD who is admitted for management of choledocholithiasis. #Choledocholithiasis status post cholecystectomy and ERCP #Nausea and vomiting, resolved #Abdominal pain, improving #Transaminitis, improving Presents with 3 to 4 days of abdominal pain associated nausea, vomiting, subjective fevers, chills. No recorded fevers or leukocytosis. CHEM panel does show elevated LFTs, ALP, and mildly elevated direct bilirubin. Amylase and lipase within normal limits. Gallbladder ultrasound showed normal common bile duct but MRCP showed suspicion for 5 mm impacted stone in distal CBD. Status post ERCP on 03/15 with removal of 1 stone and no stents needed. ? GI consulted, appreciate recommendations ? Clear liquid diet and advance as tolerated ? Zosyn (03/14-) ? Blood culture 03/14: NGTD ? Pain management with [place] and morphine for breakthrough pain #Dysphagia Endorses difficulty swallowing food for the last 2 to 3 days and that it feels stuck in her throat. EGD done with ERCP and unremarkable. ? GI following as above #Thyroid nodule #Pulmonary nodules CTA C/A/P showed 6 mm right thyroid nodule, small bilateral pulmonary nodules, abnormal AC phases and fluid-filled abnormal thickening of esophageal wall, concerning for esophageal carcinoma, abnormal thickening of gastric antrum and duodenum, enlarged uterus with exophytic mass. Planned for ERCP, pelvis US done recently negative but was limited study. Patient's recent mammogram from 12/31/2012 showed 7 mm round mass on left breast. TSH and T4 within normal limits. ? Patient will need further outpatient workup Hospital management: Disposition: S/p ERCP, IV antibiotics, following cultures, advancing diet Diet: Clear liquid diet, advance as tolerated Lines: PIV DVT prophylaxis: Heparin SC BID GI prophylaxis: Pantoprazole IV CODE STATUS: full code ----- Plan discussed with attending physician Dr. Linwood Emerson MD PGY-1 Internal Medicine Attending Provider Attestation/Addendum I have examined the patient, reviewed labs and imaging findings, discussed the case with the resident(s), and reviewed entered orders. I agree with the plan of care as outlined in this note, with these additional summaries/recommendations: Patient seen at bedside. No acute overnight events. She reports her abdominal pain is currently controlled. Discussed that we will advance patients diet today to see how she tolerates. Patient was diagnosed with choledocholithiasis and transaminitis on admission. MRCP showed 5 mm impacted stone in the distal common bile duct. Gastroenterology consulted and patient is s/p ERCP yesterday 03/15/25. ERCP revealed choledocholithiasis with complete removal by biliary sphincterectomy and balloon extraction. Per gastroenterology continue to advance diet and monitor for pancreatitis, bleeding, perforation or cholangitis. Continue pain management and IV fluids. Continue IV Zosyn. On admission CT revealed 6mm right thyroid nodule, pulmonary nodules, and enlarged uterus indicating uterine mass versus ovarian mass. Patient will need to follow-up outpatient for further workup and management. Patient's transaminitis is most likely secondary to choledocholithiasis and currently improving although not resolved. Acute hepatitis panel negative. Patient updated on the plan and in agreement. All questions answered to satisfaction. Please see residents note for additional details of management. Dr. Linwood MD
[2025-03-17] VITALS: BP 136/73; PULSE 54; PULSE 64; RESP 14; TEMP 36.7; O2SAT 96
[2025-03-17] MEDS: HYDROcodone/APAP 5/325 TABLET 1 TAB PO (01:29)
[2025-03-17] MEDS: RINGERS LACTATED 1000 ML 1,000 ML 250 ML IV (03:19)
[2025-03-17 04:00] VITALS: BP 115/68; PULSE 60; PULSE 61; RESP 15; TEMP 36; O2SAT 96
[2025-03-17] MEDS: PIPER/TAZO 3.375 GM PREMIX 3.375 GM/50 ML BAG IV (05:28)
[2025-03-17 05:56] LABS: Basophils # (Auto) 0.1 Thou/mm3 (0.0-0.2); Basophils % (Auto) 1 % (0-2.5); Eosinophils # (Auto) 0.4 Thou/mm3 (0.0-0.5); Eosinophils % (Auto) 5 % (0-10); Hemoglobin 11.4 g/dL (12.0-16.0); Immature Granulocytes % (Auto) 0 % (0-0); Immature Granulocytes Auto 0.01 Thou/mm3 (0.00-0.00); Lymphocytes # (Auto) 3.7 Thou/mm3 (1.0-4.8); Lymphocytes % (Auto) 48 % (10-50); Mean Corpuscular HGB Conc 33.5 g/dl (31.0-37.0); Mean Corpuscular Hemoglobin 31.8 pg (25.0-35.0); Mean Corpuscular Volume 95 fL (80-100); Monocytes # (Auto) 0.5 Thou/mm3 (0.0-0.8); Monocytes % (Auto) 7 % (0-12); Neutrophils # (Auto) 3.1 Thou/mm3 (1.8-7.7); Neutrophils % (Auto) 40 % (37-80); Nucleated Red Blood Cell % 0 /100 WBC (0); Platelet Count 159 Thou/mm3 (140-440); RDW Standard Deviation 47.5 fL (36.4-46.3); Red Blood Count 3.58 Miln/mm3 (4.00-5.20); White Blood Count 7.9 Thou/mm3 (3.6-11.0)
[2025-03-17 06:40] LABS: Alanine Aminotransferase 174 U/L (10-49); Albumin, Serum 3.7 gm/dL (3.5-5.0); Albumin/Globulin Ratio 1.4 (1.2-2.2); Alkaline Phosphatase 159 U/L (46-116); Anion Gap 9 (7-16); Aspartate Amino Transferase 46 U/L (0-34); BUN/Creatinine Ratio 14 Ratio (12-20); Bilirubin,Total 0.5 mg/dL (0.3-1.2); Blood Urea Nitrogen 7 mg/dL (9-23); Calcium 8.8 mg/dL (8.3-10.6); Carbon Dioxide 26.4 mMol/L (20.0-31.0); Chloride 107 mMol/L (98-107); Creatinine (Component) 0.5 mg/dL (0.6-1.3); Estimated Creatinine Clearance 158.8 mL/min (>60); Globulin 2.7 gm/dL (2.3-3.5); Glucose 90 mg/dL (74-106); Magnesium 1.9 mg/dL (1.6-2.6); Osmolality,Calculated 281 (275-295); Phosphorous 3.6 mg/dL (2.4-5.1); Potassium 3.4 mMol/L (3.4-5.1); Sodium 142 mMol/L (136-145); Total Protein 6.4 gm/dL (5.7-8.2); eGFR > 60 See Note
--- NOTE | 2025-03-17 07:48 | PC.NURSE ---
patient off the cardiac leads, pt is showering.
[2025-03-17 08:00] VITALS: BP 126/74; PULSE 61; RESP 16; TEMP 36.4; O2SAT 96
[2025-03-17] MEDS: PANTOPRAZOLE INJ 40 MG VIAL IVP (09:20)
[2025-03-17 12:00] VITALS: BP 130/73; PULSE 66; RESP 17; TEMP 36.3; O2SAT 97
--- NOTE | 2025-03-17 13:15 | ESDS_ITS ---
Planned Discharge Date 03/17/25 DS: Providers Provider Date of admission: 03/14/25 11:14 Primary care physician: Asael Spence MD Admitting Provider: Alisson Rahman MD Attending Provider on Admission: Oz Palumbo MD Consults: 03/14/25 05:07 Consult to Gastroenterology Stat Comment: Hepatitis Consulting Provider: Ingrid Lugo 03/14/25 10:19 Consult to Gastroenterology Stat Comment: has 5 mm distal CBD stone Consulting Provider: Huber Landry 03/14/25 12:59 Referral Sonny Routine Comment: Referral Registered Dietitian Routine Comment: Attending Provider on DC: Derrell Emerson MD Discharging Provider: Derrell Emerson MD DS: Diagnosis Problem List Completed Was Problem List Reviewed/Reconciled?: Yes Hospital Course Hospital Course Hospital course: Sherly Grover is a 49-year-old female with a past medical history of GERD who presented on 03/14 for nausea, vomiting, and abdominal pain for 4 days with associated subjective fever and chills. No diarrhea, constipation, dysuria, frequency, or foul-smelling urine. Initial labs did not show a leukocytosis and CHEM panel showed normal T. bili but mildly elevated direct bilirubin of 0.4, AST 203, ALT 128, ALP 144, CRP 3.1, ESR 20. Gallbladder ultrasound showed normal CBD but MRCP showed possible 5 mm impacted stone in distal CBD. CTA C/A/P showed 6 mm right thyroid nodule, fluid-filled esophagus with abnormal thickening of lower esophageal worlye, small bilateral pulmonary nodules, thickening of gastric antrum and duodenum, enlarged uterus with exophytic uterine mass versus right ovarian mass, and primary hepatocellular disease. Underwent ERCP and removed 1 stone without any stents placed. Patient was observed for 1 more night and following day she was able to tolerate her diet without any associated nausea, vomiting, or increased abdominal pain. Throughout hospital course, vital signs remained stable and she remained afebrile, CBC showed no leukocytosis, and CHEM panel showed improving AST, ALT, and alk phos. Thus, patient deemed stable for discharge with close follow-up with Dr. Yumiko vergara. Diagnoses during admission: #Choledocholithiasis status post cholecystectomy and ERCP #Nausea and vomiting, resolved #Abdominal pain, improving #Transaminitis, improving #Dysphagia #Thyroid nodule #Pulmonary nodules Discharge instructions: ? Follow-up outpatient for thyroid ultrasound and obtain CT chest within 6 months for pulmonary nodules ? Recommend nougat candy maker helper consult for further evaluation of exophytic uterine mass versus right ovarian mass seen on imaging ? Continue taking all other home medications as prescribed ? Follow-up with mobile application developer, Dr. Calderon, within 1-2 weeks of discharge ? Follow-up with PCP within 1-2 weeks of discharge ? If you do not have a PCP, you can follow-up at the [facility] (you can call [phone] to make an appointment) ? If you wish to follow-up with Dr. Emerson, schedule appointment on Friday afternoons ? Return to ED if symptoms worsen or recur ----- Plan discussed with attending physician Dr. Linwood Emerson MD PGY-1 Internal Medicine Time Spent with Patient Time attestation: Total time spent providing and/or coordinating discharge services: Time spent: Greater than 30 minutes Exam Vital Signs Temp Pulse Resp BP Pulse Ox O2 Del Method O2 Flow Rate 97.3 F 66 17 130/73 97 Room Air 4 03/17/25 12:00 03/17/25 12:03/17/25 12:03/17/25 12:03/17/25 12:00 03/17/25 12:00 03/15/25 16:00 Narrative Exam General: AOx3, no acute distress, able to speak full sentences HEENT: NC/AT, mucous membranes moist, bilateral sclera anicteric Cardiovascular: regular rate and rhythm, S1/S2 present, no murmurs appreciated Pulmonary: clear to auscultation bilaterally, no rales/rhonchi/wheezes Abdominal: improved abdominal pain compared to yesterday, soft, non-distended, no rebound/guarding, normal bowel sounds present Musculoskeletal: normal ROM, no peripheral edema Skin: warm and dry, intact, no rashes Neuro: CN II-XII intact, no focal deficits Discharge Plan Plan Patient Disposition: HOME (Self Care) Care Plan Goals: ? Follow-up outpatient for thyroid ultrasound and obtain CT chest within 6 months for pulmonary nodules ? Recommend nougat candy maker helper consult for further evaluation of exophytic uterine mass versus right ovarian mass seen on imaging ? Continue taking all other home medications as prescribed ? Follow-up with mobile application developer, Dr. Yumiko, within 1-2 weeks of discharge ? Follow-up with PCP within 1-2 weeks of discharge ? If you do not have a PCP, you can follow-up at the [facility] (you can call [phone] to make an appointment) ? If you wish to follow-up with Dr. Emerson, schedule appointment on Friday afternoons ? Return to ED if symptoms worsen or recur Prescriptions/Referrals Prescriptions/Med Rec: New hydrocodone-acetaminophen 5-325 mg tablet 1 tab PO Q6H MDD 4 PRN (Reason: pain) Qty: 10 0RF Continued omeprazole 40 mg Capsule,Delayed Release(Dr/Ec) 40 mg PO QDAY ondansetron 4 mg tablet,disintegrating 4 mg PO Q8H PRN (Reason: nausea and vomiting) Qty: 20 0RF Referrals: Asael Spence MD [Primary Care Provider] - Huber Landry MD [Physician] - Patient/Caregiver Discharge Instructions Print Language: Lao Stand Alone Forms: Marianne Award Info., Patient Portal Info Letter Discharge Order Discharge Orders: Discharge (Routine); Ordered 03/17/25 Ordered By: Derrell Emerson Quality Discharge Quality Measures VTE prophylaxis Attestestation MD Attestation I have examined the patient, reviewed labs and imaging findings, discussed the case with the resident(s), and reviewed entered orders. I agree with the plan of care as outlined in this note. Time Spent: [address] Linwood MD
== END 2025-03-17 14:08 | disposition home or self-care (01) ==
LOC: SERX 10:25 → SERHOLD 11:39 → S3SX 12:38
PROVIDERS: Emergency Medicine; Internal Medicine Gastroenterology; Admitting Provider Student in an Organized Health Care Education/Training Program; Emergency Provider Family Medicine; PCP Family Medicine; Visit Provider Student in an Organized Health Care Education/Training Program
PROC: 0FC98ZZ Extirpation of Matter from Common Bile Duct, Via Natural or Artificial Opening Endoscopic (ICD-10-PCS; CPT 43260; principal; 2025-03-15 14:30)
DX: K80.50 Calculus of bile duct without cholangitis or cholecystitis without obstruction (principal); K21.9 Gastro-esophageal reflux disease without esophagitis; E04.1 Nontoxic single thyroid nodule; N85.2 Hypertrophy of uterus; R13.10 Dysphagia, unspecified; K22.9 Disease of esophagus, unspecified; K29.70 Gastritis, unspecified, without bleeding; N39.0 Urinary tract infection, site not specified; K74.60 Unspecified cirrhosis of liver; K44.9 Diaphragmatic hernia without obstruction or gangrene; R91.8 Other nonspecific abnormal finding of lung field; Z90.49 Acquired absence of other specified parts of digestive tract; Z79.899 Other long term (current) drug therapy
CPT/HCPCS: 36415; 71275; 74174; 74330; 76705; 80053; 80061; 80074; 82010; 82150; 82248; 83605; 83690; 83735; 83880; 84100; 84145; 84439; 84443; 84484; 85025; 85379; 85610; 85652; 85730; 86140; 87040; 93005; 93225; 96361; 96372; 96374; 96375; 96376; 99285; A4217; A4649; C1889; J0131; J1100; J1171; J1644; J1885; J2250; J2270; J2405; J2470; J2543; J2704; J2765; J3010; J3490; J7030; J7042; J7050; J7120; Q9967; S8037; 74181; A9270

== ENCOUNTER 2025-03-23 15:02 | Outpatient (AMB) | payer MEDICAID, SELFPAY ==
[2025-03-23 15:17] VITALS: BP 120/76; PULSE 76; RESP 18; TEMP 36.6; O2SAT 98; BMI 28.0
--- NOTE | 2025-03-23 15:17 | ACNOTE_ITS ---
Vital Signs 03/23/25 15:17 Height 1.75 m Height Method Stated Weight 86.353 kg Weight Measurement Method Standing Scale BMI 28.0 BP 120/76 Blood Pressure Source Automatic Cuff Blood Pressure Location Right Upper Arm Position Sitting Respiration 18 Pulse 76 Pulse Source Monitor Temp 97.8 F Temp Source Temporal Artery Scan Pulse Oximetry (%) 98 Oxygen Delivery Method Room Air Allergies/Meds Allergies & Medications Allergies No Known Allergies Allergy (Verified 03/23/25 15:18) Medication Reconciliation omeprazole 40 mg capsule,delayed release 40 mg PO QDAY 05/06/23 [History Confirmed 03/23/25] ondansetron 4 mg disintegrating tablet 4 mg PO Q8H PRN nausea and vomiting #20 tabs 03/13/25 [Rx Confirmed 03/23/25] hydrocodone 5 mg-acetaminophen 325 mg tablet 1 tab PO Q6H PRN pain #10 tabs 03/17/25 [Rx Confirmed 03/23/25] MA Intake Visit Data Collection New Patient or Established: Established Patient (seen at [facility] within 3 years) Seen by Clinical Staff ONLY (RN/MA): No Pain Present Currently: No Pain scale:: 0 Pain Scale Used: Aguilar-Bryan/Numerical Intermission Coordinator Required: Yes PCP or OBGYN visit in last 3 months: No Hx Now: No Do You Feel Safe at Home: Yes Authorities Contacted: N/A Smoking Status Smoking Status: Never smoker Immunization / Flu Flu Vaccine in the Last 12 Months: No Flu Vaccine Exclusion Criteria: No Exclusion Criteria Past Medical History Past Medical History NEUROLOGIC: Negative Neurological Disorders or Seizures CARDIAC: Negative Cardiac Disorders or Congestive Heart Failure RESPIRATORY: Positive Bronchitis (15 yrs ago); Negative Chronic Obstructive Pulmonary Disease (COPD) or Asthma GASTROINTESTINAL: Positive Gastrointestinal Disorders and Gall Bladder Disease GENITOURINARY: Positive Genitourinary Disorders and Kidney Stones; Negative Renal Disease REPRODUCTIVE: Positive Previous Pregnancies; Negative Endometriosis ENDOCRINE: Negative Endocrine Disorders, Diabetes Mellitus Type 1 or Diabetes Mellitus Type 2 HEMATOLOGIC: Negative Blood Disorders or Sickle Cell Disease OTHER HISTORY: Positive Chicken Pox and Measles; Negative Hospitalization, Autoimmune Disease, Shingles, Blood Transfusions, Anesthesia Reactions or Cancer Family History FAMILY HISTORY: Positive Family Surgery; Negative Family Psychiatric Problems, Family Respiratory Disorders, Family Cardiac Disorders, Family Gastrointestinal Problems, Family Cancer or Family Anesthesia Reaction Surgical History SURGICAL: Positive Section; Negative Cardiac Surgery Social History SMOKING STATUS: Smoking status: Never smoker ALCOHOL: Alcohol Intake: Never HOUSING: Housing: House LIVES WITH: Lives With: Spouse Patient Portal Talia Social History Living Situation History Housing: House Tobacco History Smoking Status: Never smoker Alcohol History Alcohol Intake: Never Domestic Abuse History Do You Feel Safe at Home: Yes Review of Systems Report any current symptoms Only answer those that you have currently: Past Medical History Past Medical History Have you ever been diagnosed with any of the following: Neurological Problems Seizures: No Cardiology Problems Congestive Heart Failure: No Respiratory Problems Chronic Obstructive Pulmonary Disease (COPD): No Asthma: No Bronchitis: Yes (15 yrs ago) Stomache/Intestinal Problems Gall Bladder Disease: Yes Genital/Urinary Problems Renal Disease: No Kidney Stones: Yes Reproductive Problems Endometriosis: No Previous Pregnancies: Yes Endocrine Problems Diabetes Mellitus Type 1: No Diabetes Mellitus Type 2: No Blood Problems Sickle Cell Disease: No Other Problems Hospitalization: No Autoimmune Disease: No Shingles: No Blood Transfusions: No Anesthesia Reactions: No Chicken Pox: Yes Measles: Yes Cancer: No History of Present Illness HPI Narrative Sherly Grover is a 49-year-old female with a past medical history of GERD who presented on 03/14 for nausea, vomiting, and abdominal pain for 4 days with associated subjective fever and chills. No diarrhea, constipation, dysuria, frequency, or foul-smelling urine. Initial labs showed normal T. bili but mildly elevated direct bilirubin of 0.4, elevated LFTs and ALP also noted. Gallbladder ultrasound showed normal CBD but MRCP showed possible 5 mm impacted stone in distal CBD. CT C/A/P showed 6 mm right thyroid nodule, fluid-filled esophagus with abnormal thickening of lower esophageal worley, small bilateral pulmonary nodules, thickening of gastric antrum and duodenum, enlarged uterus with exophytic uterine mass versus right ovarian mass, and primary hepatocellular disease. Underwent ERCP and removed 1 stone without any stents placed and no complications noted. She tolerated her diet without any associated nausea, vomiting, or increased abdominal pain and was discharged thereafter. She now presents to the [facility] for follow-up and has minimal abdominal pain but states that she still continues to have some discomfort in RUQ and radiates to her back, rates it 2/10 in intensity. Denies N/V, no difficulty eating, no diarrhea but does endorse some constipation. Also denies any difficulty swallowing. At this time she has not been contacted regarding follow-up appointment with assistant director of public works so we will send referral today and spoke to patient regarding colonoscopy and to bring this up during appointment as she has never had one before. Otherwise, will work up abnormal CT findings including thyroid nodule, pulmonary nodules, and pelvic mass. Thyroid ultrasound ordered, pelvic and transvaginal ultrasounds ordered, and referral to ASIC ENGINEER sent today. Spoke to patient regarding pulmonary nodules and communicated to her that she will need a repeat CT chest within the next 5 to 6 months. She has no other complaints and does not need any refills for medications. Will follow-up in 3 weeks for ultrasound results. Of note, she underwent biopsy for breast nodules that were shown to be negative for signs of malignancy in 2018. She undergoes repeat mammograms yearly and is followed by another clinic and has an appointment coming up in April. Review of Systems Review of Systems Systems Reviewed: All systems reviewed, normal except as documented Objective/Exam Narrative Physical exam: General: AOx3, no acute distress, able to speak full sentences HEENT: NC/AT, mucous membranes moist, bilateral sclera anicteric Cardiovascular: regular rate and rhythm, S1/S2 present, no murmurs appreciated Pulmonary: clear to auscultation bilaterally, no rales/rhonchi/wheezes Abdominal: soft, non-tender, non-distended, no rebound/guarding, normal bowel sounds present Musculoskeletal: normal ROM, no peripheral edema Skin: warm and dry, intact, no rashes Neuro: CN II-XII intact, no focal deficits Assessment & Plan Diagnosis / Problem List (1) Uterine mass: Status: Acute Assessment & Plan: CT C/A/P on 03/13/2025 and 03/14/2025 showed an enlarged uterus with exophytic uterine mass versus right ovarian mass. However, pelvic US on 03/13/2025 did not show a uterine mass. Will re-evaluate with repeat pelvic and transvaginal ultrasounds and refer to gynecology. Plan: ? Pelvic ultrasound ? Transvaginal ultrasound ? Referral to gynecology ? Follow-up in 3 weeks (2) Thyroid nodule: Status: Acute Assessment & Plan: CT C/A/P showed 6 mm right thyroid nodule Plan: ? Thyroid ultrasound ? Follow-up in 3 weeks (3) S/P ERCP: Status: Acute Assessment & Plan: MRCP showed possible 5 mm impacted stone in distal CBD. Underwent ERCP and removed 1 stone without any stents placed and no complications noted. Returns to clinic and states she has had significant improvement in abdominal pain, denies any nausea or vomiting, difficulty eating, diarrhea, but does have some constipation. Plan: ? Referral to gastroenterology sent (4) Pulmonary nodule: Status: Acute Assessment & Plan: CT C/A/P showed 2 mm pulmonary nodule in right upper lobe, 3 mm pulm nodule left lower lobe. No history of smoking. Plan: ? She will need repeat CT chest in 5 to 6 months Orders: Orders US pelvic complete Today US transvaginal Today US thyroid Today Referrals Gastroenterology ASIC ENGINEER N85.8 - Other specified noninflammatory disorders of uterus Office Procedures [facility] Level of Care Nursing/Assessment Patient Status: Established Patient Nursing Assessment/Reassessment: Medication Reconciliation, Update PMH in EMR and Vital Signs Coordination of Care: Complex Care and Chronic Disease 1-5, Consent,records obtained, informed consent, Lab and Imaging orders and Staff clarify orders Established Patient Charge Established Patient Point Assignment: 85 Established Patient Point Charge: Level 3 (80-115)
== END 2025-03-23 16:24 | disposition home or self-care (01) ==
LOC: HODAHC 15:02
PROVIDERS: Supervising Provider Internal Medicine
DX: N85.8 Other specified noninflammatory disorders of uterus (principal); E04.1 Nontoxic single thyroid nodule; K80.50 Calculus of bile duct without cholangitis or cholecystitis without obstruction; R91.8 Other nonspecific abnormal finding of lung field
CPT/HCPCS: 99213; G0463

== ENCOUNTER 2025-04-15 09:03 | Outpatient (AMB) | payer MEDICAID, SELFPAY ==
[2025-04-15 09:23] VITALS: BP 127/79; PULSE 70; RESP 18; TEMP 36.8; O2SAT 98; BMI 28.0
--- NOTE | 2025-04-15 09:23 | ACNOTE_ITS ---
Vital Signs 04/15/25 09:23 Height 1.75 m Height Method Stated Weight 85.729 kg Weight Measurement Method Standing Scale BMI 28.0 BP 127/79 Blood Pressure Source Automatic Cuff Blood Pressure Location Right Upper Arm Position Sitting Respiration 18 Pulse 70 Pulse Source Monitor Temp 98.2 F Temp Source Temporal Artery Scan Pulse Oximetry (%) 98 Oxygen Delivery Method Room Air Allergies/Meds Allergies & Medications Allergies No Known Allergies Allergy (Verified 04/15/25 10:11) Medication Reconciliation ondansetron 4 mg disintegrating tablet 4 mg PO Q8H PRN nausea and vomiting #20 tabs 03/13/25 [Rx Confirmed 04/15/25] hydrocodone 5 mg-acetaminophen 325 mg tablet 1 tab PO Q6H PRN pain #10 tabs 03/17/25 [Rx Confirmed 04/15/25] omeprazole 40 mg capsule,delayed release 40 mg PO QDAY #30 caps 04/15/25 [Rx Confirmed 04/15/25] tramadol 50 mg tablet 50 mg PO Q8H PRN pain #14 tabs 04/15/25 [Rx Confirmed 04/15/25] MA Intake Visit Data Collection New Patient or Established: Established Patient (seen at [facility] within 3 years) Seen by Clinical Staff ONLY (RN/MA): No Pain Present Currently: No Pain scale:: 0 Pain Scale Used: Aguilar-Bryan/Numerical Supervisor Tan Room Required: No PCP or OBGYN visit in last 3 months: No Hx Now: No Do You Feel Safe at Home: Yes Authorities Contacted: N/A Smoking Status Smoking Status: Never smoker Immunization / Flu Flu Vaccine in the Last 12 Months: No Flu Vaccine Exclusion Criteria: No Exclusion Criteria Past Medical History Past Medical History NEUROLOGIC: Negative Neurological Disorders or Seizures CARDIAC: Negative Cardiac Disorders or Congestive Heart Failure RESPIRATORY: Positive Bronchitis (15 yrs ago); Negative Chronic Obstructive Pulmonary Disease (COPD) or Asthma GASTROINTESTINAL: Positive Gastrointestinal Disorders and Gall Bladder Disease GENITOURINARY: Positive Genitourinary Disorders and Kidney Stones; Negative Renal Disease REPRODUCTIVE: Positive Previous Pregnancies; Negative Endometriosis ENDOCRINE: Negative Endocrine Disorders, Diabetes Mellitus Type 1 or Diabetes Mellitus Type 2 HEMATOLOGIC: Negative Blood Disorders or Sickle Cell Disease OTHER HISTORY: Positive Chicken Pox and Measles; Negative Hospitalization, Autoimmune Disease, Shingles, Blood Transfusions, Anesthesia Reactions or Cancer Family History FAMILY HISTORY: Positive Family Surgery; Negative Family Psychiatric Problems, Family Respiratory Disorders, Family Cardiac Disorders, Family Gastrointestinal Problems, Family Cancer or Family Anesthesia Reaction Surgical History SURGICAL: Positive Section; Negative Cardiac Surgery Social History SMOKING STATUS: Smoking status: Never smoker ALCOHOL: Alcohol Intake: Never HOUSING: Housing: House LIVES WITH: Lives With: Spouse Patient Portal [place] Social History Living Situation History Housing: House Tobacco History Smoking Status: Never smoker Alcohol History Alcohol Intake: Never Domestic Abuse History Do You Feel Safe at Home: Yes Review of Systems Report any current symptoms Only answer those that you have currently: Past Medical History Past Medical History Have you ever been diagnosed with any of the following: Neurological Problems Seizures: No Cardiology Problems Congestive Heart Failure: No Respiratory Problems Chronic Obstructive Pulmonary Disease (COPD): No Asthma: No Bronchitis: Yes (15 yrs ago) Stomache/Intestinal Problems Gall Bladder Disease: Yes Genital/Urinary Problems Renal Disease: No Kidney Stones: Yes Reproductive Problems Endometriosis: No Previous Pregnancies: Yes Endocrine Problems Diabetes Mellitus Type 1: No Diabetes Mellitus Type 2: No Blood Problems Sickle Cell Disease: No Other Problems Hospitalization: No Autoimmune Disease: No Shingles: No Blood Transfusions: No Anesthesia Reactions: No Chicken Pox: Yes Measles: Yes Cancer: No History of Present Illness HPI Narrative Sherly Grover is a 49-year-old female with a past medical history of GERD, cholecystitis s/p cholecystectomy in 2022, choledocolithiasis s/p ERCP in 2024 presents to the [facility] for follow-up. ? In February 2025, patient presented and was admitted to [facility] for choledocolithiasis and is s/p ERCP with Dr. Calderon.? Last follow-up patient continued to endorse right-sided abdominal pain that radiated to her back and was 2/10 in intensity.? Denied N/V, difficulty eating, diarrhea but does endorse some constipation.? Again on follow-up, she continues to endorse the same abdominal pain that is associated with food (milk, cheese) and has since been trying to avoid them.? She has not returned to work since her procedure and is inquiring whether it is safe to go back.? Advised her that it is safe but recommended to start slow and see how her body tolerates.? Will prescribe short course of tramadol for pain as she plans to go back to work.? Additionally, she has been contacted by gynecology and has an appointment scheduled on 04/20/2025 for further evaluation of her uterine mass seen on CT during her hospitalization.? Still pending transvaginal and pelvic ultrasounds.? Will schedule follow-up in 1 month. Review of Systems Review of Systems Systems Reviewed: All systems reviewed, normal except as documented Objective/Exam Narrative Physical exam: General: AOx3, no acute distress, able to speak full sentences HEENT: NC/AT, mucous membranes moist, bilateral sclera anicteric Cardiovascular: regular rate and rhythm, S1/S2 present, no murmurs appreciated Pulmonary: clear to auscultation bilaterally, no rales/rhonchi/wheezes Abdominal: RUQ tenderness to palpation, soft, non-distended, no rebound/guarding, normal bowel sounds present Musculoskeletal: normal ROM, no peripheral edema Skin: warm and dry, intact, no rashes Neuro: CN II-XII intact, no focal deficits Assessment & Plan Diagnosis / Problem List (1) Uterine mass: Status: Acute Assessment & Plan: CT C/A/P on 03/13/2025 and 03/14/2025 showed an enlarged uterus with exophytic uterine mass versus right ovarian mass. However, pelvic US on 03/13/2025 did not show a uterine mass. Will re-evaluate with repeat pelvic and transvaginal ultrasounds. Has an upcoming appointment with gynecology. Plan: ? Pelvic ultrasound ? Transvaginal ultrasound ? Gynecology appointment on 04/20/2025 ? Follow-up in 3 weeks (2) Thyroid nodule: Status: Acute Assessment & Plan: CT C/A/P showed 6 mm right thyroid nodule Plan: ? Thyroid ultrasound ordered (3) S/P ERCP: Status: Acute Assessment & Plan: MRCP showed possible 5 mm impacted stone in distal CBD. Underwent ERCP and removed 1 stone without any stents placed and no complications noted. Returns to clinic and states she has had significant improvement in abdominal pain compared to presentation. Denies any nausea or vomiting, difficulty eating, diarrhea, but does have some constipation and abdominal pain. Plan: ? Referral to gastroenterology sent ? Tramadol 50 mg as needed (4) Pulmonary nodule: Status: Acute Assessment & Plan: CT C/A/P showed 2 mm pulmonary nodule in right upper lobe, 3 mm pulm nodule left lower lobe. No history of smoking. Plan: ? She will need repeat CT chest in 5 to 6 months (July/August) (5) Gastroenteritis: Status: Acute Plan: ? Omeprazole 40 mg daily Office Procedures [facility] Level of Care Nursing/Assessment Patient Status: Established Patient Nursing Assessment/Reassessment: Medication Reconciliation, Update PMH in EMR and Vital Signs Coordination of Care: Complex Care and Chronic Disease 1-5, Consent,records obtained, informed consent, Education Simp Pt/Fam and Staff clarify orders Established Patient Charge Established Patient Point Assignment: 85 Established Patient Point Charge: Level 3 (80-115)
== END 2025-04-15 09:53 | disposition home or self-care (01) ==
LOC: HODAHC 09:03
PROVIDERS: Supervising Provider Internal Medicine
DX: K52.9 Noninfective gastroenteritis and colitis, unspecified (principal); N85.8 Other specified noninflammatory disorders of uterus; E04.1 Nontoxic single thyroid nodule; Z90.49 Acquired absence of other specified parts of digestive tract; R91.8 Other nonspecific abnormal finding of lung field
CPT/HCPCS: 99213; G0463

== ENCOUNTER 2025-04-20 11:34 | Outpatient (AMB) | payer MEDICAID, SELFPAY ==
[2025-04-20 11:48] VITALS: BP 124/82; PULSE 84; RESP 17; TEMP 36.6; O2SAT 98; BMI 28.3
--- NOTE | 2025-04-20 11:48 | AMB.GYNCLNOT ---
Vital Signs 04/20/25 11:48 Height 1.75 m Height Method Stated Weight 86.75 kg Weight Measurement Method Standing Scale BMI 28.3 BP 124/82 Blood Pressure Source Automatic Cuff Blood Pressure Location Right Upper Arm Position Sitting Respiration 17 Pulse 84 Pulse Source Monitor Temp 97.9 F Temp Source Temporal Artery Scan Pulse Oximetry (%) 98 Oxygen Delivery Method Room Air Allergies/Home Meds Allergies & Medications Allergies No Known Allergies Allergy (Verified 04/20/25 11:49) Medication Reconciliation ondansetron 4 mg disintegrating tablet 4 mg PO Q8H PRN nausea and vomiting #20 tabs 03/13/25 [Rx Confirmed 04/20/25] hydrocodone 5 mg-acetaminophen 325 mg tablet 1 tab PO Q6H PRN pain #10 tabs 03/17/25 [Rx Confirmed 04/20/25] omeprazole 40 mg capsule,delayed release 40 mg PO QDAY #30 caps 04/15/25 [Rx Confirmed 04/20/25] tramadol 50 mg tablet 50 mg PO Q8H PRN pain #14 tabs 04/15/25 [Rx Confirmed 04/20/25] conj estrogen-medroxyprogesterone 0.3 mg-1.5 mg tablet (Prempro) 1 tab PO QDAY 28 days #28 tabs 04/20/25 [Rx] Intake Visit Data Collection New Patient or Established: Established Patient (seen at [facility] within 3 years) Reason for Visit:: UTERINE MASS Seen by Clinical Staff ONLY (RN/MA): No Director Medical Safety Required: Yes Director Medical Safety's name/title: MARIA D COON Do You Feel Safe at Home: Yes Authorities Contacted: N/A PCP or OBGYN visit in last 3 months: Yes Date of Last PCP or OBGYN visit: 04/15/25 Hx Now: No Are you currently on any form of Control: No Pain Present Currently: No Pain Scale Used: Aguilar-Bryan/Numerical Pain scale:: 0 Smoking Status Smoking Status: Never smoker 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 Age at menarche: 12 Menopausal: Yes If menopausal, at what age did it occur: 42 Currently sexually active: Yes 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 1. Little interest or pleasure in doing things: not at all 2. Feeling down, depressed, or hopeless: not at all Total score: 0 PHQ-9 3. Trouble falling or staying asleep, or sleeping too much: Not at all 4. Feeling tired or having little energy: Not at all 5. Poor appetite or overeating: Not at all 6. Feeling bad about yourself - or that you are a failure or have let yourself or your family down: Not at all 7. Trouble concentrating on things, such as reading the newspaper or watching television: Not at all 8. Moving or speaking so slowly that other people could have noticed? - Or the opposite - being so fidgety or restless that you have been moving around a lot more than usual: not at all 9. Thoughts that you would be better off or of hurting yourself in some way: Not at all Total score: 0 If you checked off any problems, how difficult have these problems made it for you to do your work, take care of things at home, or get along with other people?: not difficult at all Source: Developed by Drs. Wilber Renee, Bozena June, Taran Paz and colleagues, with an educational edwina from [employer] (formerly [employer]). Depression screen completed yes Social History Living Situation History Marital Status: Lives With: Family Housing: House Tobacco History Smoking Status: Never smoker Second Hand Smoke Exposure: No Alcohol History Alcohol Intake: Never Domestic Abuse History Do You Feel Safe at Home: Yes History of Present Illness VENTURA Dubois, a postmenopausal woman, presents for evaluation of a 5-centimeter cyst found incidentally on imaging. She reports occasional pain in the area of the cyst, which she tolerates. The pain occurs randomly, not associated with any specific timing or menstrual cycle, as she has been postmenopausal for approximately 7 years. In addition to the cyst-related concerns, Sherly experiences palpitations, hot flashes, and shortness of breath. She also reports feeling sad sometimes. These symptoms appear to be related to menopause, which began around age 42. 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 Her family history is significant for breast cancer in her mother, who underwent a mastectomy in [place] many years ago. ROS: General: Positive for occasional pain. Cardiovascular: Positive for palpitations. Respiratory: Positive for shortness of breath. Endocrine: Positive for hot flashes. Psychiatric: Positive for feeling sad sometimes. Exam General General Appearance: alert, in no apparent distress and healthy appearing Head Head exam: atraumatic Neck Neck exam: Present normal inspection and trachea midline Chest Chest inspection: Present normal inspection and symmetric chest wall rise External exam: Present normal external exam; Absent tenderness Neuro Neurological exam: Present oriented X3 Psych Psychiatric exam: Present normal affect and normal mood Office Procedures [facility] Clinic LOC & Office Proc's Nursing/Assessment Patient Status: Established Patient OB Clinic Nursing Assessment: Medication Reconciliation, Update PMH in EMR and Vital Signs OB Clinic Coordination of Care: Complex Care and Chronic Disease 1-5, Consent,records obtained, informed consent, Education Simp Pt/Fam and Staff clarify orders Established Patient Charge Established Patient Point Assignment: 85 Established Patient Point Charge: EP Level 3 (80-115) Assessment & Plan Diagnosis / Problem List (1) Menopausal hot flushes: Status: Acute (2) Family history of breast cancer: Status: Acute Plan Ultrasound: No mass or fibroid visualized. Uterus noted to be large. CT scan: 5-centimeter cyst identified, origin uncertain (uterus vs. ovary). Pelvic Mass Assessment: [address] cm cyst identified on CT scan, location uncertain (uterine vs ovarian origin). Ultrasound showed enlarged uterus without distinct masses. Patient reports occasional pain. Plan: - Order tumor marker blood tests - Repeat ultrasound in 6 months - Follow up after test results are available Menopausal Symptoms Assessment: Patient reports palpitations, hot flashes, shortness of breath, and mood changes. Last menstrual period was approximately 7 years ago at age 42, confirming postmenopausal status. Plan: - Initiate low-dose hormone therapy - Prescribe hormone therapy medication (details [facility] be [facility] pharmacy) - Assess efficacy of hormone therapy at follow-up visit Breast Fibroadenomas Assessment: Patient has multiple breast fibroadenomas, which are benign breast lesions. Plan: - Continue annual mammograms - Monitor fibroadenomas without surgical intervention Family History of Breast Cancer Assessment: Patient's mother had breast cancer and underwent mastectomy. Plan: - Order genetic testing for hereditary breast cancer genes - Director Of Security patient on test results at follow-up visit
== END 2025-04-20 12:02 | disposition home or self-care (01) ==
LOC: HODSOBC 11:34
PROVIDERS: Supervising Provider Obstetrics & Gynecology; Visit Provider Obstetrics & Gynecology
DX: N95.1 Menopausal and female climacteric states (principal); R23.2 Flushing; R19.00 Intra-abdominal and pelvic swelling, mass and lump, unspecified site; D24.9 Benign neoplasm of unspecified breast; Z80.3 Family history of malignant neoplasm of breast
CPT/HCPCS: 99213; G0463

== ENCOUNTER 2025-05-17 15:33 | Outpatient (AMB) | payer MEDICAID, SELFPAY ==
[2025-05-17 15:55] VITALS: BP 125/82; PULSE 77; RESP 17; TEMP 36.5; O2SAT 98; BMI 28.3
--- NOTE | 2025-05-17 15:55 | GYNCLNT_ITS ---
Vital Signs 05/17/25 15:55 Height 1.75 m Height Method Measured Weight 86.806 kg Weight Measurement Method Standing Scale BMI 28.3 BP 125/82 Blood Pressure Source Automatic Cuff Blood Pressure Location Right Upper Arm Position Sitting Respiration 17 Pulse 77 Pulse Source Monitor Temp 97.7 F Temp Source Temporal Artery Scan Pulse Oximetry (%) 98 Oxygen Delivery Method Room Air Allergies/Home Meds Allergies & Medications Allergies No Known Allergies Allergy (Verified 05/17/25 15:56) Medication Reconciliation ondansetron 4 mg disintegrating tablet 4 mg PO Q8H PRN nausea and vomiting #20 tabs 03/13/25 [Rx Confirmed 05/17/25] hydrocodone 5 mg-acetaminophen 325 mg tablet 1 tab PO Q6H PRN pain #10 tabs 03/17/25 [Rx Confirmed 05/17/25] omeprazole 40 mg capsule,delayed release 40 mg PO QDAY #30 caps 04/15/25 [Rx Confirmed 05/17/25] tramadol 50 mg tablet 50 mg PO Q8H PRN pain #14 tabs 04/15/25 [Rx Confirmed 05/17/25] estradiol 0.5 mg tablet 0.5 mg PO QDAY 90 days #90 tabs 05/17/25 [Rx] medroxyprogesterone 2.5 mg tablet (Provera) 5 mg (2 x 2.5 mg) PO QDAY 90 days #180 tabs 05/17/25 [Rx] Intake Visit Data Collection New Patient or Established: Established Patient (seen at [facility] within 3 years) Reason for Visit:: FOLLOW UP LAB RESULTS Consent obtained for Telemed Visit: No Seen by Clinical Staff ONLY (RN/MA): No Payroll Services Analyst Required: No Do You Feel Safe at Home: Yes Authorities Contacted: N/A PCP or OBGYN visit in last 3 months: Yes Date of Last PCP or OBGYN visit: 04/20/25 Hx Now: No Are you currently on any form of Control: No Pain Present Currently: No Pain Scale Used: Aguilar-Bryan/Numerical Pain scale:: 0 Smoking Status Smoking Status: Never smoker Filling Hand history Filling Hand History Age at menarche: 12 Menopausal: Yes If menopausal, at what age did it occur: 42 Currently sexually active: Yes 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 1. Little interest or pleasure in doing things: not at all PHQ-9 8. Moving or speaking so slowly that other people could have noticed? - Or the opposite - being so fidgety or restless that you have been moving around a lot more than usual: not at all Source: Developed by Drs. Wilber Renee, Bozena June, Taran Paz and colleagues, with an educational edwina from [employer]. Social History Living Situation History Lives With: Family Housing: House Tobacco History Smoking Status: Never smoker Second Hand Smoke Exposure: No Alcohol History Alcohol Intake: Never Domestic Abuse History Do You Feel Safe at Home: Yes History of Present Illness HPI Lisa Dubois presents for follow-up of a previously identified 5-centimeter pelvic cyst/mass with occasional pain and menopausal symptoms. She reports that she was unable to start the previously prescribed hormone therapy due to insurance coverage issues. She does not mention any changes in her symptoms or overall health status since her last visit. The patient experiences occasional pelvic pain. She has a history of breast fibroadenomas and family history of breast cancer. The patient was prescribed hormone therapy but has not started it due to insurance coverage issues. She is a 49-year-old woman experiencing menopausal symptoms. She expresses concerns about insurance coverage affecting her ability to access prescribed treatments. ROS: Genitourinary: Positive for occasional pelvic pain. Endocrine: Positive for menopausal symptoms. Exam General General Appearance: alert, in no apparent distress and healthy appearing Head Head exam: atraumatic Neck Neck exam: Present normal inspection and trachea midline Chest Chest inspection: Present normal inspection and symmetric chest wall rise External exam: Present normal external exam; Absent tenderness Neuro Neurological exam: Present oriented X3 Psych Psychiatric exam: Present normal affect and normal mood Office Procedures OB Clinic LOC & Office Proc's Nursing/Assessment Patient Status: Established Patient OB Clinic Nursing Assessment: Medication Reconciliation, Update PMH in EMR and Vital Signs OB Clinic Coordination of Care: Complex Care and Chronic Disease 1-5, Consent,records obtained, informed consent, Education Simp Pt/Fam and Results /Orders obtained Established Patient Charge Established Patient Point Assignment: 80 Established Patient Point Charge: EP Level 3 (80-115) Assessment & Plan Diagnosis / Problem List (1) Menopausal hot flushes: Status: Acute Plan Genetic Cancer Risk: - Cancer genetic screening test results are negative, indicating no increased genetic risk for breast, ovarian, or other female cancers. - Particularly relevant given patient's family history of breast cancer. Plan: - No further genetic testing or specialized cancer screening indicated at this time based on negative results. Menopausal Symptoms: - Patient reports ongoing menopausal symptoms. - Previous hormone therapy prescription was not covered by insurance. Plan: - Prescribe separate hormone therapy components instead of combination tablet to ensure insurance coverage. - Follow-up appointment in 1 month to assess efficacy of hormone therapy. Pelvic Cyst/Mass: - Previously identified 5 cm pelvic cyst/mass with occasional pain. - Current status not assessed during this visit. Plan: - Schedule follow-up ultrasound at next visit to reassess pelvic cyst/mass.
== END 2025-05-17 16:02 | disposition home or self-care (01) ==
LOC: HODSOBC 15:33
PROVIDERS: Supervising Provider Obstetrics & Gynecology; Visit Provider Obstetrics & Gynecology
DX: N95.1 Menopausal and female climacteric states (principal); R23.2 Flushing; Z59.71 Insufficient health insurance coverage; Z80.3 Family history of malignant neoplasm of breast; Z87.898 Personal history of other specified conditions
CPT/HCPCS: 99213; G0463

== ENCOUNTER 2025-05-27 11:05 | Outpatient (AMB) | payer MEDICAID, SELFPAY ==
[2025-05-27 11:21] VITALS: BP 121/77; PULSE 76; RESP 18; TEMP 36.6; O2SAT 98; BMI 28.2
--- NOTE | 2025-05-27 11:21 | ACNOTE_ITS ---
Vital Signs 05/27/25 11:21 Height 1.75 m Height Method Stated Weight 86.353 kg Weight Measurement Method Standing Scale BMI 28.2 BP 121/77 Blood Pressure Source Automatic Cuff Blood Pressure Location Left Upper Arm Position Sitting Respiration 18 Pulse 76 Pulse Source Monitor Temp 97.8 F Temp Source Oral Pulse Oximetry (%) 98 Oxygen Delivery Method Room Air Allergies/Meds Allergies & Medications Allergies No Known Allergies Allergy (Verified 05/27/25 11:22) Medication Reconciliation hydrocodone 5 mg-acetaminophen 325 mg tablet 1 tab PO Q6H PRN pain #10 tabs 03/17/25 [Rx Confirmed 05/27/25] omeprazole 40 mg capsule,delayed release 40 mg PO QDAY #30 caps 04/15/25 [Rx Confirmed 05/27/25] estradiol 0.5 mg tablet 0.5 mg PO QDAY 90 days #90 tabs 05/17/25 [Rx Confirmed 05/27/25] medroxyprogesterone 2.5 mg tablet (Provera) 5 mg (2 x 2.5 mg) PO QDAY 90 days #180 tabs 05/17/25 [Rx Confirmed 05/27/25] MA Intake Visit Data Collection New Patient or Established: Established Patient (seen at [facility] within 3 years) Seen by Clinical Staff ONLY (RN/MA): No Pain Present Currently: No Pain scale:: 0 Pain Scale Used: Aguilar-Bryan/Numerical PCP or OBGYN visit in last 3 months: Yes Smoking Status Smoking Status: Never smoker Immunization / Flu Flu Vaccine in the Last 12 Months: No Flu Vaccine Exclusion Criteria: No Exclusion Criteria Past Medical History Past Medical History NEUROLOGIC: Negative Neurological Disorders or Seizures CARDIAC: Negative Cardiac Disorders or Congestive Heart Failure RESPIRATORY: Positive Bronchitis (15 yrs ago); Negative Chronic Obstructive Pulmonary Disease (COPD) or Asthma GASTROINTESTINAL: Positive Gastrointestinal Disorders and Gall Bladder Disease GENITOURINARY: Positive Genitourinary Disorders and Kidney Stones; Negative Renal Disease REPRODUCTIVE: Positive Previous Pregnancies; Negative Endometriosis ENDOCRINE: Negative Endocrine Disorders, Diabetes Mellitus Type 1 or Diabetes Mellitus Type 2 HEMATOLOGIC: Negative Blood Disorders or Sickle Cell Disease OTHER HISTORY: Positive Chicken Pox and Measles; Negative Hospitalization, Autoimmune Disease, Shingles, Blood Transfusions, Anesthesia Reactions or Cancer Family History FAMILY HISTORY: Positive Family Surgery; Negative Family Psychiatric Problems, Family Respiratory Disorders, Family Cardiac Disorders, Family Gastrointestinal Problems, Family Cancer or Family Anesthesia Reaction Surgical History SURGICAL: Positive Section; Negative Cardiac Surgery Social History SMOKING STATUS: Smoking status: Never smoker SECOND HAND EXPOSURE: second hand exposure: No ALCOHOL: Alcohol Intake: Never HOUSING: Housing: House LIVES WITH: Lives With: Spouse Patient Portal Questionaires PHQ-9 PHQ-2 Over the last 2 weeks, how often have you been bothered by any of the following problems? 1. Little interest or pleasure in doing things: not at all PHQ-9 8. Moving or speaking so slowly that other people could have noticed? - Or the opposite - being so fidgety or restless that you have been moving around a lot more than usual: not at all Source: Developed by Drs. Wilber Renee, Bozena June, Taran Paz and colleagues, with an educational edwina from [employer] Social History Living Situation History Lives With: Family Housing: House Tobacco History Smoking Status: Never smoker Second Hand Smoke Exposure: No Alcohol History Alcohol Intake: Never Review of Systems Report any current symptoms Only answer those that you have currently: Past Medical History Past Medical History Have you ever been diagnosed with any of the following: Neurological Problems Seizures: No Cardiology Problems Congestive Heart Failure: No Respiratory Problems Chronic Obstructive Pulmonary Disease (COPD): No Asthma: No Bronchitis: Yes (15 yrs ago) Stomache/Intestinal Problems Gall Bladder Disease: Yes Genital/Urinary Problems Renal Disease: No Kidney Stones: Yes Reproductive Problems Endometriosis: No Previous Pregnancies: Yes Endocrine Problems Diabetes Mellitus Type 1: No Diabetes Mellitus Type 2: No Blood Problems Sickle Cell Disease: No Other Problems Hospitalization: No Autoimmune Disease: No Shingles: No Blood Transfusions: No Anesthesia Reactions: No Chicken Pox: Yes Measles: Yes Cancer: No History of Present Illness HPI Narrative Sherly Grover is a 49-year-old female with a past medical history of GERD, cholecystitis s/p cholecystectomy in 2022, choledocolithiasis s/p ERCP in 2024 presents to the [facility] for follow-up. She states she has no abdominal pain and no longer requires tramadol or Zofran. Since last visit she has been able to follow-up with [facility] and was prescribed hormone replacement therapy for menopausal symptoms but has had insurance issues. Otherwise, reordered thyroid ultrasound for nodule seen on imaging during hospitalization. Resent referral to gastroenterology given that she had ERCP done with Dr. Calderon and for colonoscopy given that she is now 49 years old. Given that we we will have to reorder low-dose CT for pulmonary nodules in the next couple of months, will follow-up then. Review of Systems Review of Systems Systems Reviewed: All systems reviewed, normal except as documented Objective/Exam Narrative Physical exam: General: AOx3, no acute distress, able to speak full sentences HEENT: NC/AT, mucous membranes moist, bilateral sclera anicteric Cardiovascular: regular rate and rhythm, S1/S2 present, no murmurs appreciated Pulmonary: clear to auscultation bilaterally, no rales/rhonchi/wheezes Abdominal: RUQ tenderness to palpation, soft, non-distended, no rebound/guarding, normal bowel sounds present Musculoskeletal: normal ROM, no peripheral edema Skin: warm and dry, intact, no rashes Neuro: CN II-XII intact, no focal deficits Assessment & Plan Diagnosis / Problem List (1) Thyroid nodule: Status: Acute Assessment & Plan: CT C/A/P showed 6 mm right thyroid nodule Plan: ? Thyroid ultrasound ordered (2) Pulmonary nodule: Status: Acute Assessment & Plan: CT C/A/P showed 2 mm pulmonary nodule in right upper lobe, 3 mm pulm nodule left lower lobe. No history of smoking. Plan: ? She will need repeat CT chest in 5 to 6 months (July/August) (3) Uterine mass: Status: Acute Assessment & Plan: CT C/A/P on 03/13/2025 and 03/14/2025 showed an enlarged uterus with exophytic uterine mass versus right ovarian mass. However, pelvic US on 03/13/2025 did not show a uterine mass. Will re-evaluate with repeat pelvic and transvaginal ultrasounds. Has an upcoming appointment with gynecology. Plan: ? Continue follow-up with [facility] (4) Gastroenteritis: Status: Acute Plan: ? Omeprazole 40 mg daily (5) Preventative health care: Status: Acute Plan: ? Referral sent to gastroenterology given the patient is 49 years old for colonoscopy Orders: Orders US thyroid 05/27/25 E04.1 - Nontoxic single thyroid nodule Referrals Gastroenterology Z98.890 - Other specified postprocedural states Additional Assessment Attending note: I, Cosmo Jarvis MD, attest that I was physically present for the worley portions of the service and evaluated the patient with the resident and I revi ewed and discussed the case with the resident and agree with the resident's findings and plans of care as documented above. Cosmo Jarvis MD Physician Billing Established Patient Established Patient: E/M Level 3-CPT 05560 Office Procedures [facility] Level of Care Nursing/Assessment Patient Status: Established Patient Nursing Assessment/Reassessment: Medication Reconciliation, Update PMH in EMR and Vital Signs Coordination of Care: Complex Care and Chronic Disease 1-5, Results/Orders obtained and Staff clarify orders Established Patient Charge Established Patient Point Assignment: 70 Established Patient Point Charge: EP Level 2 (40-75)
== END 2025-05-27 12:13 | disposition home or self-care (01) ==
LOC: HODAHC 11:05
PROVIDERS: Supervising Provider Internal Medicine
DX: E04.1 Nontoxic single thyroid nodule (principal); R91.8 Other nonspecific abnormal finding of lung field; K52.9 Noninfective gastroenteritis and colitis, unspecified
CPT/HCPCS: 99212; G0463

== ENCOUNTER 2025-06-15 14:56 | Outpatient (AMB) | payer MEDICAID, SELFPAY ==
[2025-06-15 15:32] VITALS: BP 119/73; PULSE 90; RESP 16; TEMP 36.2; O2SAT 97; BMI 28.3
--- NOTE | 2025-06-15 15:32 | OBCLNT_ITS ---
Vital Signs 06/15/25 15:32 Height 1.75 m Height Method Stated Weight 86.75 kg Weight Measurement Method Standing Scale BMI 28.3 BP 119/73 Blood Pressure Source Automatic Cuff Blood Pressure Location Left Upper Arm Position Sitting Respiration 16 Pulse 90 Pulse Source Monitor Temp 97.2 F Temp Source Oral Pulse Oximetry (%) 97 Oxygen Delivery Method Room Air Allergies/Home Meds Allergies & Medications Allergies No Known Allergies Allergy (Verified 06/15/25 15:33) Medication Reconciliation hydrocodone 5 mg-acetaminophen 325 mg tablet 1 tab PO Q6H PRN pain #10 tabs 03/17/25 [Rx Confirmed 06/15/25] omeprazole 40 mg capsule,delayed release 40 mg PO QDAY #30 caps 04/15/25 [Rx Confirmed 06/15/25] estradiol 0.5 mg tablet 0.5 mg PO QDAY 90 days #90 tabs 05/17/25 [Rx Confirmed 06/15/25] medroxyprogesterone 2.5 mg tablet (Provera) 5 mg (2 x 2.5 mg) PO QDAY 90 days #180 tabs 05/17/25 [Rx Confirmed 06/15/25] Intake Visit Data Collection New Patient or Established: Established Patient (seen at [facility] within 3 years) Reason for Visit:: FOLLOW UP Seen by Clinical Staff ONLY (RN/MA): No Civil Rights Representative Required: No Do You Feel Safe at Home: Yes Authorities Contacted: N/A PCP or OBGYN visit in last 3 months: Yes Date of Last PCP or OBGYN visit: 05/27/25 Pain Present Currently: No Pain Scale Used: Aguilar-Bryan/Numerical Pain scale:: 0 Smoking Status Smoking Status: Never smoker Questionnaires Covid-19 Vaccine Questionnaire Has patient been vacinated for Covid-19 Have you been vacinated for Covid-19: Yes PHQ-9 PHQ-2 Over the last 2 weeks, how often have you been bothered by any of the following problems? 1. Little interest or pleasure in doing things: not at all 2. Feeling down, depressed, or hopeless: not at all Total score: 0 PHQ-9 3. Trouble falling or staying asleep, or sleeping too much: Not at all 4. Feeling tired or having little energy: Not at all 5. Poor appetite or overeating: Not at all 6. Feeling bad about yourself - or that you are a failure or have let yourself or your family down: Not at all 7. Trouble concentrating on things, such as reading the newspaper or watching television: Not at all 8. Moving or speaking so slowly that other people could have noticed? - Or the opposite - being so fidgety or restless that you have been moving around a lot more than usual: not at all 9. Thoughts that you would be better off or of hurting yourself in some way: Not at all Total score: 0 If you checked off any problems, how difficult have these problems made it for you to do your work, take care of things at home, or get along with other people?: not difficult at all Source: Developed by Drs. Wilber Renee, Bozena June, Taran Paz and colleagues, with an educational edwina from [employer]. Depression screen completed yes Social History Living Situation History Marital Status: Single Lives With: Family Housing: House Tobacco History Smoking Status: Never smoker Second Hand Smoke Exposure: No Alcohol History Alcohol Intake: Never Domestic Abuse History Do You Feel Safe at Home: Yes [employer]: Past Medical History Past Medical History: No Hx Neurological Disorders, No Hx Cardiac Disorders, No Hx Cancer, No Hx Blood Disorders, Yes Hx Gastrointestinal Disorders, No Hx Renal Disease, No Hx Diabetes Mellitus Type 1 and No Hx Diabetes Mellitus Type 2 History of Present Illness HPI Lisa Dubois presents for follow-up of menopausal symptoms and medication management. She reports experiencing fewer menopausal symptoms since starting hormone therapy. The patient mentions having bone pain, which was expected to improve with hormone treatment. She has not encountered any insurance issues with obtaining her prescribed medication this time. Sherly is adhering to her hormone therapy regimen, and it appears to be effective in reducing her menopausal symptoms. However, she reports ongoing bone pain, which is unexpected given the hormone treatment. The patient has not been taking a multivitamin as recommended. The patient has been taking hormone therapy, taking less than before, which helps with menopause symptoms and should improve bone pain. She has not been taking a multivitamin as recommended. ROS: Positive for bone pain and menopausal symptoms. Exam General General Appearance: alert, in no apparent distress and healthy appearing Head Head exam: atraumatic Neck Neck exam: Present normal inspection and trachea midline Chest Chest inspection: Present normal inspection and symmetric chest wall rise External exam: Present normal external exam; Absent tenderness Neuro Neurological exam: Present oriented X3 Psych Psychiatric exam: Present normal affect and normal mood Office Procedures [facility] LOC & Office Proc's Nursing/Assessment Patient Status: Established Patient OB Clinic Nursing Assessment: Medication Reconciliation, Update PMH in EMR and Vital Signs OB Clinic Coordination of Care: Education Complex Pt/Fam, Consent,records obtained, informed consent, Lab and Imaging orders, Results/Orders obtained and Staff clarify orders Special Needs: Heart tones Established Patient Charge Established Patient Point Assignment: 115 Established Patient Point Charge: EP Level 3 (80-115) Assessment & Plan Diagnosis / Problem List (1) Menopausal hot flushes: Status: Acute (2) Uterine mass: Status: Acute Plan Menopausal symptoms: - Patient reports improvement in menopausal symptoms with hormone therapy. - Currently taking hormones with no insurance issues reported. - Bone pain, which may be related to menopausal changes, is expected to improve with hormone therapy. Plan: - Continue current hormone therapy. - Order ultrasound of uterus and ovaries for follow-up evaluation. - Recommend consultation with a general practitioner for overall health assessment. - Advise taking an [id number] multivitamin daily. - Follow up after ultrasound results are available.
== END 2025-06-15 16:40 | disposition home or self-care (01) ==
LOC: HODSOBC 14:56
PROVIDERS: Supervising Provider Obstetrics & Gynecology; Visit Provider Obstetrics & Gynecology
DX: N95.1 Menopausal and female climacteric states (principal); R23.2 Flushing; N85.8 Other specified noninflammatory disorders of uterus
CPT/HCPCS: 99213; G0463

== ENCOUNTER → 2025-06-30 | Outpatient (CLI) | payer MEDICAID, SELFPAY ==
--- NOTE | 2025-06-30 15:00 | XR_ITS ---
EXAMINATION: Thyroid sonography complete TECHNIQUE: Grayscale sonographic images thyroid lobes Date and time: June 30, 2025, 1504 hours INDICATIONS: 6 mm right thyroid nodule on CT chest study March 14, 2025 FINDINGS: Right thyroid 5.2 cm Midpole nodule 6 x 6 mm mid to lower pole nodule 12 x 9 mm Left thyroid 4.8 cm Midpole nodule 10 x 8 mm Lower pole nodule 22 x 18 mm with vascularity IMPRESSION: Bilateral thyroid nodules as above Recommend ultrasound-guided fine-needle aspiration of the vascular lower pole left thyroid nodule
== END | disposition home or self-care (01) ==
DX: E04.2 Nontoxic multinodular goiter (principal)
CPT/HCPCS: 76536

== ENCOUNTER 2025-07-13 14:29 | Outpatient (AMB) | payer MEDICAID, SELFPAY ==
[2025-07-13 15:07] VITALS: BP 129/83; PULSE 80; RESP 16; TEMP 36.4; O2SAT 97; BMI 28.4
--- NOTE | 2025-07-13 15:07 | PD.RESCLINIC ---
Vital Signs 07/13/25 15:07 Height 1.75 m Height Method Stated Weight 87.146 kg Weight Measurement Method Standing Scale BMI 28.4 BP 129/83 Blood Pressure Source Automatic Cuff Blood Pressure Location Right Upper Arm Position Sitting Respiration 16 Pulse 80 Pulse Source Monitor Temp 97.5 F Temp Source Temporal Artery Scan Pulse Oximetry (%) 97 Oxygen Delivery Method Room Air Allergies/Meds Allergies & Medications Allergies No Known Allergies Allergy (Verified 07/13/25 15:08) Medication Reconciliation hydrocodone 5 mg-acetaminophen 325 mg tablet 1 tab PO Q6H PRN pain #10 tabs 03/17/25 [Rx Confirmed 07/13/25] estradiol 0.5 mg tablet 0.5 mg PO QDAY 90 days #90 tabs 05/17/25 [Rx Confirmed 07/13/25] medroxyprogesterone 2.5 mg tablet (Provera) 5 mg (2 x 2.5 mg) PO QDAY 90 days #180 tabs 05/17/25 [Rx Confirmed 07/13/25] omeprazole 40 mg capsule,delayed release 40 mg PO QDAY #30 caps 07/13/25 [Rx] MA Intake Visit Data Collection New Patient or Established: Established Patient (seen at [facility] within 3 years) Seen by Clinical Staff ONLY (RN/MA): No Pain Present Currently: Yes Pain Location: Abdomen Pain scale:: 3 Pain Scale Used: Aguilar-Bryan/Numerical Soldering Machine Feeder Required: Yes PCP or OBGYN visit in last 3 months: Yes Date of Last PCP or OBGYN visit: 06/30/25 Hx Now: No Do You Feel Safe at Home: Yes Authorities Contacted: N/A Smoking Status Smoking Status: Never smoker Immunization / Flu Flu Vaccine in the Last 12 Months: No Flu Vaccine Exclusion Criteria: No Exclusion Criteria Past Medical History Past Medical History NEUROLOGIC: Negative Neurological Disorders or Seizures CARDIAC: Negative Cardiac Disorders or Congestive Heart Failure RESPIRATORY: Positive Bronchitis (15 yrs ago); Negative Chronic Obstructive Pulmonary Disease (COPD) or Asthma GASTROINTESTINAL: Positive Gastrointestinal Disorders and Gall Bladder Disease GENITOURINARY: Positive Genitourinary Disorders and Kidney Stones; Negative Renal Disease REPRODUCTIVE: Positive Previous Pregnancies; Negative Endometriosis ENDOCRINE: Negative Endocrine Disorders, Diabetes Mellitus Type 1 or Diabetes Mellitus Type 2 HEMATOLOGIC: Negative Blood Disorders or Sickle Cell Disease OTHER HISTORY: Positive Chicken Pox and Measles; Negative Hospitalization, Autoimmune Disease, Shingles, Blood Transfusions, Anesthesia Reactions or Cancer Family History FAMILY HISTORY: Positive Family Surgery; Negative Family Psychiatric Problems, Family Respiratory Disorders, Family Cardiac Disorders, Family Gastrointestinal Problems, Family Cancer or Family Anesthesia Reaction Surgical History SURGICAL: Positive Section; Negative Cardiac Surgery Social History SMOKING STATUS: Smoking status: Never smoker SECOND HAND EXPOSURE: second hand exposure: No ALCOHOL: Alcohol Intake: Never HOUSING: Housing: House LIVES WITH: Lives With: Spouse Patient Portal Questionaires PHQ-9 PHQ-2 Over the last 2 weeks, how often have you been bothered by any of the following problems? 1. Little interest or pleasure in doing things: not at all PHQ-9 3. Trouble falling or staying asleep, or sleeping too much: Not at all 4. Feeling tired or having little energy: Not at all 5. Poor appetite or overeating: Not at all 6. Feeling bad about yourself - or that you are a failure or have let yourself or your family down: Not at all 7. Trouble concentrating on things, such as reading the newspaper or watching television: Not at all 8. Moving or speaking so slowly that other people could have noticed? - Or the opposite - being so fidgety or restless that you have been moving around a lot more than usual: not at all 9. Thoughts that you would be better off or of hurting yourself in some way: Not at all If you checked off any problems, how difficult have these problems made it for you to do your work, take care of things at home, or get along with other people?: not difficult at all Source: Developed by Drs. Wilber Renee, Bozena June, Taran Paz and colleagues, with an educational edwina from [employer]. Depression screen completed yes Social History Living Situation History Lives With: Family Housing: House Tobacco History Smoking Status: Never smoker Second Hand Smoke Exposure: No Alcohol History Alcohol Intake: Never Domestic Abuse History Do You Feel Safe at Home: Yes Review of Systems Report any current symptoms Only answer those that you have currently: Past Medical History Past Medical History Have you ever been diagnosed with any of the following: Neurological Problems Seizures: No Cardiology Problems Congestive Heart Failure: No Respiratory Problems Chronic Obstructive Pulmonary Disease (COPD): No Asthma: No Bronchitis: Yes (15 yrs ago) Stomache/Intestinal Problems Gall Bladder Disease: Yes Genital/Urinary Problems Renal Disease: No Kidney Stones: Yes Reproductive Problems Endometriosis: No Previous Pregnancies: Yes Endocrine Problems Diabetes Mellitus Type 1: No Diabetes Mellitus Type 2: No Blood Problems Sickle Cell Disease: No Other Problems Hospitalization: No Autoimmune Disease: No Shingles: No Blood Transfusions: No Anesthesia Reactions: No Chicken Pox: Yes Measles: Yes Cancer: No History of Present Illness HPI Narrative Sherly Grover is a 49-year-old female with GERD, menopausal symptoms, bilateral thyroid nodules (left lower pole 2.2 cm vascular nodule, FNA recommended), and pulmonary nodules, here for follow-up. Patient seen today for follow-up. Reports epigastric discomfort and bloating, typically worse after eating, especially with certain seasonings or unfamiliar foods. On omeprazole 40 mg daily; states it helps somewhat but still has breakthrough symptoms if dietary triggers occur. Denies nausea, vomiting, melena, hematemesis, or weight loss. No fever, chills, or jaundice. Following with [employer] for menopausal symptoms, reports improvement since starting hormone therapy. Awaiting pelvic ultrasound on 08/01/2025 for uterine mass follow-up. Denies dysphagia, neck swelling, or persistent voice changes. Reports occasional cough after eating. No new respiratory or cardiac symptoms. Review of Systems Review of Systems Narrative Review of Systems: negative unless stated above Objective/Exam Narrative Physical exam: Vitals: Stable. General: Alert, no acute distress. HEENT/Neck: No palpable thyromegaly, trachea midline, no lymphadenopathy. Cardiac: RRR, no murmurs. Lungs: CTA bilaterally, no wheezes or crackles. Abdomen: Soft, mild epigastric tenderness, no rebound/guarding, nondistended, BS+. Neuro/Psych: AOx3, normal mood/affect. Assessment & Plan Diagnosis / Problem List (1) GERD without esophagitis: Status: Acute Assessment & Plan: Persistent postprandial epigastric pain despite PPI. Plan: -Continue omeprazole 40 mg daily, refill sent. -Avoid known dietary triggers, spicy foods, caffeine, and late meals. -Re-route GI referral for EGD &/or colonoscopy (insurance denial previously). -Follow up with GI for possible endoscopic evaluation. (2) Multiple thyroid nodules: Status: Acute Assessment & Plan: Bilateral nodules on US; largest 2.2 cm left lower pole nodule with vascularity - FNA indicated. Plan: -Order ultrasound-guided FNA biopsy (left lower pole). -Educated patient that most nodules are benign; biopsy is low-risk and confirmatory. -Advised to monitor for neck swelling, dysphagia, or voice change and report if present. -Follow-up after biopsy results. (3) Pulmonary nodules: Status: Acute Assessment & Plan: Stable, incidental, asymptomatic, non-smoker. Plan: -Schedule repeat CT chest in Aug 2025 for surveillance. (4) Menopausal symptoms: Status: Acute Assessment & Plan: Improved with hormone therapy per [employer]. Plan: -Continue current regimen. -Take daily multivitamin as recommended by [employer]. -Await pelvic US (08/01/25) and continue LENS MOUNTER follow-up. Plan ----- Plan discussed with attending physician Dr. Hilda Savage MD PGY-1 Internal Medicine Orders: Orders CT biopsy thyroid, perc Today Cristian Thomas MD E04.1 - Nontoxic single thyroid nodule CT angio chest Today Dina Savage MD R91.1 - Solitary pulmonary nodule Office Procedures [facility] Level of Care Nursing/Assessment Patient Status: Established Patient Nursing Assessment/Reassessment: Medication Reconciliation, Update PMH in EMR and Vital Signs Coordination of Care: Complex Care and Chronic Disease 1-5, Complex Care/Chronic Disease 5 or more, Consent,records obtained, informed consent, Lab and Imaging orders, Results/Orders obtained and Staff clarify orders Established Patient Charge Established Patient Point Assignment: 125 Established Patient Point Charge: EP Level 4 (120-155) TB Screening LTBI Screening: Has patient traveled, was born, or resided for at least 1 month, or frequent border crossing into a country with an elevated TB rate: No Immunosuppression, current or planned (HIV, organ transplant, treated with biologic agents, steroids, or other immunosuppression medication): No Close contact to someone with infectious TB disease during lifetime: No Homelessness or incarceration, current or past: No TB testing indicated at this time (at least 1 yes above): No
== END 2025-07-13 15:30 | disposition home or self-care (01) ==
LOC: HODAHC 14:29
PROVIDERS: Supervising Provider Internal Medicine
DX: K21.9 Gastro-esophageal reflux disease without esophagitis (principal); E04.2 Nontoxic multinodular goiter; N95.1 Menopausal and female climacteric states; R91.8 Other nonspecific abnormal finding of lung field
CPT/HCPCS: 99214; G0463

== ENCOUNTER 2025-08-15 10:09 | Outpatient (AMB) | payer MEDICAID, SELFPAY ==
[2025-08-15 10:21] VITALS: BP 133/83; PULSE 91; RESP 18; TEMP 36.2; O2SAT 99; BMI 29.0
--- NOTE | 2025-08-15 10:21 | GYNCLNT_ITS ---
Vital Signs 08/15/25 10:21 Height 1.75 m Height Method Stated Weight 89.018 kg Weight Measurement Method Standing Scale BMI 29.0 BP 133/83 H Blood Pressure Source Automatic Cuff Blood Pressure Location Left Upper Arm Position Sitting Respiration 18 Pulse 91 Pulse Source Monitor Temp 97.2 F Temp Source Oral Pulse Oximetry (%) 99 Oxygen Delivery Method Room Air Allergies/Home Meds Allergies & Medications Allergies No Known Allergies Allergy (Verified 08/15/25 10:22) Medication Reconciliation hydrocodone 5 mg-acetaminophen 325 mg tablet 1 tab PO Q6H PRN pain #10 tabs 03/17/25 [Rx Confirmed 08/15/25] medroxyprogesterone 2.5 mg tablet (Provera) 5 mg (2 x 2.5 mg) PO QDAY 90 days #180 tabs 05/17/25 [Rx Confirmed 08/15/25] omeprazole 40 mg capsule,delayed release 40 mg PO QDAY #30 caps 07/13/25 [Rx Confirmed 08/15/25] estradiol 0.5 mg tablet 0.5 mg PO QDAY 90 days #90 tabs 08/15/25 [Rx] Intake Visit Data Collection New Patient or Established: Established Patient (seen at [facility] within 3 years) Reason for Visit:: LAB RESULTS Seen by Clinical Staff ONLY (RN/MA): No 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 Operator Floorperson's name/title: DARNELL SCHWAB MA Do You Feel Safe at Home: Yes Authorities Contacted: N/A PCP or OBGYN visit in last 3 months: Yes Date of Last PCP or OBGYN visit: 07/13/25 Hx Now: No Are you currently on any form of Control: No Pain Present Currently: No Pain Scale Used: Aguilar-Bryan/Numerical Pain scale:: 0 Smoking Status Smoking Status: Never smoker Immunizations Flu Vaccine in the Last 12 Months: No Flu Vaccine Exclusion Criteria: No Exclusion Criteria 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 history 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 History Menstrual regularity: regular Flow: normal Monthly: No Age at menarche: 11 Menopausal: No Currently sexually active: No 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 1. Little interest or pleasure in doing things: not at all 2. Feeling down, depressed, or hopeless: not at all Total score: 0 PHQ-9 3. Trouble falling or staying asleep, or sleeping too much: Not at all 4. Feeling tired or having little energy: Not at all 5. Poor appetite or overeating: Not at all 6. Feeling bad about yourself - or that you are a failure or have let yourself or your family down: Not at all 7. Trouble concentrating on things, such as reading the newspaper or watching television: Not at all 8. Moving or speaking so slowly that other people could have noticed? - Or the opposite - being so fidgety or restless that you have been moving around a lot more than usual: not at all 9. Thoughts that you would be better off or of hurting yourself in some way: Not at all Total score: 0 If you checked off any problems, how difficult have these problems made it for you to do your work, take care of things at home, or get along with other people?: not difficult at all Source: Developed by Drs. Wilber Renee, Bozena June, Taran Paz and colleagues, with an educational edwina from [employer]. Depression screen completed yes Social History Living Situation History Marital Status: Single Lives With: Family Housing: House Tobacco History Smoking Status: Never smoker Second Hand Smoke Exposure: No Alcohol History Alcohol Intake: Never Domestic Abuse History Do You Feel Safe at Home: Yes History of Present Illness HPI Narrative Sherly Keenan presents for follow-up of menopause symptoms and hormone management, as well as review of pelvic ultrasound results. She was previously seen for menopause symptoms and hormone management and has been reporting less vasomotor symptoms since starting hormone replacement therapy (HRT). She did experience some bone pain, which is getting better. The patient is adhering to her medication regimen and is planning to continue HRT for at least 3 to 5 years as recommended. The patient has been taking hormone replacement therapy and is adhering to medication. She reports less vasomotor symptoms since starting and had some bone pain which is getting better. She will continue for at least 3 to 5 years. ROS: General: Negative for vasomotor symptoms since starting HRT. Musculoskeletal: Positive for bone pain, which is improving. Diagnostic Test Results and Labs: - Pelvic ultrasound (08-02-2025): Uterus measuring 10.4 cm with anterior fundal body mass measuring 3.8 x 3.7 x 3.1 cm, endometrial stripe 10 mm, right ovary 4.7 cm with solid mass 3.9 x 2.9 x 3.0 cm, left ovary 3.5 cm - Transvaginal ultrasound (08-02-2025): Corroborates pelvic ultrasound findings Exam General General Appearance: alert, in no apparent distress and healthy appearing Head Head exam: atraumatic Neck Neck exam: Present normal inspection and trachea midline Chest Chest inspection: Present normal inspection and symmetric chest wall rise External exam: Present normal external exam; Absent tenderness Neuro Neurological exam: Present oriented X3 Psych Psychiatric exam: Present normal affect and normal mood Office Procedures O[facility] Clinic LOC & Office Proc's Nursing/Assessment Patient Status: Established Patient OB Clinic Nursing Assessment: Medication Reconciliation, Update PMH in EMR and Vital Signs OB Clinic Coordination of Care: Consent,records obtained, informed consent, Education Simp Pt/Fam, Lab and Imaging orders, Results/Orders obtained and Staff clarify orders Established Patient Charge Established Patient Point Assignment: 80 Established Patient Point Charge: EP Level 3 (80-115) Assessment & Plan Diagnosis / Problem List (1) Pelvic mass in female: Status: Acute (2) Menopausal symptoms: Status: Acute Plan Right Ovarian Solid Mass: - 3.9 by 2.9 by 3 cm solid mass identified on pelvic and transvaginal ultrasound. - Solid rather than cystic in nature, appearance does not suggest malignancy. - Further evaluation warranted to definitively rule out cancer and determine exact nature. Plan: - Order MRI for better characterization of the right ovarian mass. - Order blood tests including tumor markers to rule out malignancy. - [facility] - Provide copy of ultrasound results to patient. Menopause on HRT: - Patient responding well to hormone replacement therapy with decreased vasomotor symptoms. - Previously experienced bone pain which is improving. - Patient adherent to current medication regimen. Plan: - Continue current HRT continuously for 3-5 years. - Send new prescription without 5-day break instruction. - Patient to take both medications continuously. Uterine Fibroid: - Anterior fundal body mass measuring 3.8 by 3.7 by 3.1 cm consistent with fibroid. - Uterus measures 10.4 cm which is within normal size range. - Endometrial stripe measures 10 mm. Plan: - No specific intervention discussed for fibroid at this time.
== END 2025-08-15 10:51 | disposition home or self-care (01) ==
LOC: HODSOBC 10:09
PROVIDERS: Supervising Provider Obstetrics & Gynecology; Visit Provider Obstetrics & Gynecology
DX: N95.1 Menopausal and female climacteric states (principal); N83.8 Other noninflammatory disorders of ovary, fallopian tube and broad ligament; D25.9 Leiomyoma of uterus, unspecified; Z79.890 Hormone replacement therapy; M89.8X9 Other specified disorders of bone, unspecified site
CPT/HCPCS: 99213; G0463

== ENCOUNTER 2025-08-18 12:16 | Emergency (ER) | payer MEDICAID, SELFPAY ==
[2025-08-18 12:26] VITALS: BP 115/74; PULSE 121; RESP 18; TEMP 36.8; O2SAT 97; BMI 26.9
--- NOTE | 2025-08-18 12:35 | EKG_ITS ---
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
--- NOTE | 2025-08-18 12:35 | XR_ITS ---
EXAMINATION: PA lateral chest 2 views TECHNIQUE: Upright PA chest lateral 2 views Date and time: 1127, 2025, 1323 hours INDICATIONS: Mid to upper chest pain radiating to the back beginning 3 days ago. FINDINGS: Significant pneumonia left lower lobe Mild pneumonia lingular segment Normal heart size Moderate osteopenia IMPRESSION: Significant pneumonia left lower lobe Mild pneumonia lingular segment left upper lobe
--- NOTE | 2025-08-18 12:37 | PD.EDRME ---
Rapid Medical Screening Exam RME Arrival date/time: 08/18/25 12:16 49-year-old female presents to the emergency department today for complaints of cough, shortness of breath, chest pain Chief Complaint: Dental/Oral/Throat Vital signs: Vital Signs Temperature 98.2 F 08/18/25 12:26 Pulse Rate 121 H 08/18/25 12:26 Respiratory Rate 18 08/18/25 12:26 Blood Pressure 115/74 08/18/25 12:26 Pulse Oximetry (%) 97 08/18/25 12:26 Oxygen Delivery Method Room Air 08/18/25 12:26 Vital signs reviewed by provider: Yes Exam: On exam well-appearing does not appear ill or toxic patient does have mild tachypnea and tachycardia Clinical Impression: Lab work and imaging ordered
[2025-08-18 13:16] LABS: Lactate (Lactic Acid) 1.8 mMol/L (0.4-2.0)
[2025-08-18 13:21] LABS: Collection Type, Urine Clean Catch
[2025-08-18 13:24] LABS: COVID-19 Antigen (In-House) Negative (Negative)
[2025-08-18 13:28] LABS: Influenza A Ag Negative; Influenza B Ag Negative
[2025-08-18 13:30] LABS: INR 1.0 (0.9-1.3); Partial Thromboplastin Time 29.3 Seconds (22.0-36.0); Prothrombin Time 10.7 Seconds (9.0-12.2)
[2025-08-18 13:34] LABS: B-Type Natriuretic Peptide 71 pg/mL (0-100)
[2025-08-18 13:35] LABS: HCG Qualitative,Urine Negative
[2025-08-18 13:36] LABS: D-Dimer 1420 ng/mL (<600)
[2025-08-18 13:40] LABS: Amorphous Crystals,Urine Present (Absent); Bilirubin,Urine Negative (Negative); Blood,Urine 1+ (Negative); Clarity,Urine Turbid (Clear/Hazy); Color,Urine Yellow (Lt Yel-Yel); Culture Indicated,Urine Not Indicated; Glucose, Urine Negative (Negative); Ketones,Urine Negative (Negative); Leukocyte Esterase,Urine Negative (Negative); Nitrite,Urine Negative (Negative); PH,Urine 6.0 (5.0-7.0); Protein,Urine 1+ (Neg - Trace); RBC,Urine 6 /hpf (0-3); Specific Gravity,Urine 1.036 (1.001-1.035); Squamous Epithelial Cell,Urine 22 /hpf (0-5); Urobilinogen,Urine 2.0 mg/dL (0.0-1.0); WBC,Urine 2 /hpf (0-5)
[2025-08-18 13:42] LABS: Alanine Aminotransferase 40 U/L (10-49); Albumin, Serum 4.6 gm/dL (3.5-5.0); Albumin/Globulin Ratio 1.3 (1.2-2.2); Alkaline Phosphatase 109 U/L (46-116); Anion Gap 11 (7-16); Aspartate Amino Transferase 41 U/L (0-34); BUN/Creatinine Ratio 13 Ratio (12-20); Bilirubin,Total 0.3 mg/dL (0.3-1.2); Blood Urea Nitrogen 9 mg/dL (9-23); Calcium 9.2 mg/dL (8.3-10.6); Calcium (Corrected) 9.2 mg/dL (8.5-10.1); Carbon Dioxide 23.4 mMol/L (20.0-31.0); Chloride 107 mMol/L (98-107); Creatinine (Component) 0.7 mg/dL (0.6-1.3); Estimated Creatinine Clearance 117.6 mL/min (>60); Globulin 3.5 gm/dL (2.3-3.5); Glucose 117 mg/dL (74-106); Magnesium 2.0 mg/dL (1.6-2.6); Osmolality,Calculated 280 (275-295); Potassium 3.8 mMol/L (3.4-5.1); Procalcitonin 0.07 ng/ml (0.0-0.49); Sodium 141 mMol/L (136-145); Total Protein 8.1 gm/dL (5.7-8.2); Troponin I 0.034 ng/mL (0.0-0.045); eGFR > 60 See Note
[2025-08-18 13:48] LABS: Basophils # (Auto) 0.0 Thou/mm3 (0.0-0.2); Basophils % (Auto) 0 % (0-2.5); Eosinophils # (Auto) 0.2 Thou/mm3 (0.0-0.5); Eosinophils % (Auto) 2 % (0-10); Hematocrit 40.4 % (36.0-46.0); Hemoglobin 13.3 g/dL (12.0-16.0); Immature Granulocytes Auto 0.02 Thou/mm3 (0.00-0.00); Lymphocytes # (Auto) 1.5 Thou/mm3 (1.0-4.8); Lymphocytes % (Auto) 14 % (10-50); Mean Corpuscular HGB Conc 32.9 g/dl (31.0-37.0); Mean Corpuscular Hemoglobin 31.2 pg (25.0-35.0); Mean Corpuscular Volume 95 fL (80-100); Monocytes # (Auto) 0.7 Thou/mm3 (0.0-0.8); Monocytes % (Auto) 7 % (0-12); Neutrophils # (Auto) 8.1 Thou/mm3 (1.8-7.7); Neutrophils % (Auto) 77 % (37-80); Nucleated Red Blood Cell # 0.00 Thou/mm3 (0.00-0.00); Nucleated Red Blood Cell % 0 /100 WBC (0); Platelet Count 179 Thou/mm3 (140-440); RDW Standard Deviation 46.7 fL (36.4-46.3); Red Blood Count 4.26 Miln/mm3 (4.00-5.20); White Blood Count 10.5 Thou/mm3 (3.6-11.0)
--- NOTE | 2025-08-18 19:12 | PD.EDURI ---
Upper Respiratory Inf. RME/HPI General Chief Complaint: Dental/Oral/Throat Stated Complaint: PAIN IN THROAT/BACK, DYSPNEA Time Seen by Provider: 08/18/25 15:02 Arrival date/time: 08/18/25 12:16 RME / HPI RME / HPI Narrative: 08/18/25 12:16 49-year-old female presents to the emergency department today for complaints of cough, shortness of breath, chest pain See [facility] for Dr. Plaza's HPI Documentation. Exam: On exam well-appearing does not appear ill or toxic patient does have mild tachypnea and tachycardia Impression: Lab work and imaging ordered Related Data Previous Rx's ?Medication ?Instructions ?Recorded hydrocodone 5 mg-acetaminophen 325 1 tab PO Q6H PRN pain #10 tabs 03/17/25 mg tablet medroxyprogesterone 2.5 mg tablet 5 mg (2 x 2.5 mg) PO QDAY 90 days 05/17/25 (Provera) #180 tabs omeprazole 40 mg capsule,delayed 40 mg PO QDAY #30 caps 07/13/25 release estradiol 0.5 mg tablet 0.5 mg PO QDAY 90 days #90 tabs 08/15/25 acetaminophen 300 mg-codeine 30 mg 2 tab PO Q8H PRN pain #20 tabs 08/18/25 tablet albuterol sulfate 90 mcg/actuation 2 puff inhalation Q6H PRN 08/18/25 aerosol inhaler shortness of breath or wheezing #8.5 grams azithromycin 500 mg tablet 500 mg PO QDAY 3 days #3 tabs 08/18/25 (Zithromax TRI-KANDICE) cefdinir 300 mg capsule 300 mg PO BID #14 caps 08/18/25 prednisone 50 mg tablet 50 mg PO QDAY #3 tabs 08/18/25 Allergies Allergy/AdvReac Type Severity Reaction Status Date / Time No Known Allergies Allergy Verified 08/18/25 12:19 Review of Systems Review of Systems Systems Reviewed: All systems reviewed, normal except as documented Past Medical History Past Medical History RESPIRATORY: Positive Bronchitis (15 yrs ago) GASTROINTESTINAL: Positive Gastrointestinal Disorders and Gall Bladder Disease GENITOURINARY: Positive Genitourinary Disorders and Kidney Stones REPRODUCTIVE: Positive Previous Pregnancies OTHER HISTORY: Positive Chicken Pox and Measles Surgical History SURGICAL: Positive Section ED Exam Narrative Physical exam: See [facility] for Dr. Plaza's Physical Exam Documentation. Course Quality Measures none Orders Category Date Time Status CT Screening NOW Care 08/18/25 19:15 Completed EKG (ED ONLY) *Do not use* NOW Care 08/18/25 12:35 Completed Saline [Insert IV] NOW Care 08/18/25 19:[address] angio chest Stat Exams 08/18/25 19:15 Completed EKG (ED Only) Stat Exams 08/18/25 12:35 Draft XR chest 2V Stat Exams 08/18/25 12:35 Completed B-Type Natriuretic Peptide Stat Lab 08/18/25 13:07 Completed Blood Culture (Lab) Stat Lab 08/18/25 13:07 Received CBC Stat Lab 08/18/25 13:07 Completed COVID-19 Antigen (In-House) Stat Lab 08/18/25 12:45 Completed Comprehensive Metabolic Panel Stat Lab 08/18/25 13:07 Completed D-Dimer Stat Lab 08/18/25 13:07 Completed FLU A&B [Influenza A & B Rapid Panel] Stat Lab 08/18/25 12:45 Completed HCG Qualitative,Urine Stat Lab 08/18/25 13:16 Completed Lactic Acid [Lactate (Lactic Acid)] Stat Lab 08/18/25 13:07 Completed Magnesium Stat Lab 08/18/25 13:07 Completed Partial Thromboplastin Time Stat Lab 08/18/25 13:07 Completed Procalcitonin Stat Lab 08/18/25 13:07 Completed Prothrombin Time with INR Stat Lab 08/18/25 13:07 Completed Troponin I Stat Lab 08/18/25 13:07 Completed Urinalysis, C/S if Indicated Stat Lab 08/18/25 13:16 Completed Albuterol/Ipratr Rt Summer [Duoneb Rt Summer] Med 08/18/25 19:13 Discontinued 3 ml INH X1 ONE Azithromycin Inj [Zithromax Inj] 500 mg Med 08/18/25 19:13 Discontinued Sodium Chloride 0.9% 250 ml [Ns] 250 ml IV X1 Ketorolac Inj [Toradol Inj] Med 08/18/25 19:13 Discontinued 30 mg IVP X1 ONE MethylPREDNISolone.* [SoluMEDROL Inj] Med 08/18/25 19:13 Discontinued 125 mg IVP X1 ONE Ondansetron Inj [Zofran Inj] Med 08/18/25 19:13 Discontinued 4 mg IVP X1 ONE Ringers Lactated 1000 ml [Lactated Ringers] 1,000 ml Med 08/18/25 21:12 Discontinued IV 1,000 mls/hr Sodium Chloride 0.9% 1000 ml [Ns] 1,000 ml Med 08/18/25 19:13 Discontinued IV 999 mls/hr cefTRIAXone/D5w 1gm IV premix [Rocephin/D5w 1gm IV Med 08/18/25 19:13 Discontinued premix] 1 gm in 50 ml IV X1 Vital Signs Vital signs: Vital Signs Temperature 98.2 F 08/18/25 12:26 Pulse Rate 121 H 08/18/25 12:26 Respiratory Rate 18 08/18/25 12:26 Blood Pressure 115/74 08/18/25 12:26 Pulse Oximetry (%) 97 08/18/25 12:26 Oxygen Delivery Method Room Air 08/18/25 12:26 Upper Respiratory Infection MDM Narrative MDM Narrative:: This section includes all my notes and documentations, including HPI, PE, and ED course. Ronnie Plaza MD HPI: 49 y/o female here with about a week history of worsening cough, productive cough, purulent sputum, and dyspnea. With chest tightness for the past few days. No other complaints. ROS: All negative except as documented in HPI. Physical Exam: General: Alert and oriented. Hacking cough noted. Eyes: Conjunctivae and lids clear. ENT: No nasal congestion. Neck: Supple. Heart: RRR. Lungs: No respiratory distress. Decreased air movement with rhonchi. Abdomen: Soft and nontender. Skin: Warm and dry. Neuro: Alert and oriented X 3. I reviewed all diagnostic test results: My interpretation of the EKG is sinus tachycardia with nonspecific ST-T changes. My interpretation of the chest x-ray is infiltrates. My review of the Chest CTA report is RLL pneumonia. Blood tests and urine tests remarkable for D-dimer 1420. COVID/Influenza: Negative. At this point, diagnoses include: Pneumonia Treatment here included: IVF DuoNeb Solu-Medrol 105 mg IV Toradol 30 mg IV Zofran 4 mg IV Zithromax 500 mg IV Rocephin 1 G IV Significant permit noted. Recommended a trial of outpatient treatment. Based on my best medical judgment, made decision no further evaluation or treatment indicated at this time. Patient understands and agrees to the discharge instructions customized and printed, see below. Discharge instructions from Dr. Plaza: --No physical exertion for 3 days to help rest the lungs. ?No smoking or exposure to smoking or pets or dust or cold or humidity. --Zithromax and cefdinir to kill the germs causing the pneumonia. --Prednisone to help decrease the swelling in the airways. --Albuterol 2 puffs every 4-6 hours as needed for cough or shortness of breath. --Tylenol with codeine for severe cough or severe pain. --See a private doctor on 08/22/2025 for recheck. Ask for help until you are completely better. --Seek immediate medical care with worsening or with any concerns. Ronnie Plaza MD Patient data External records reviewed:: [facility] previous records (Reviewed prior ED records from 03/14/25. Patient was seen for Abdominal pain.) Clinical information provided by:: patient Social determinants that could affect healthcare access:: none Patient has the following chronic illnesses:: Gall Bladder Disease, Kidney Stones How is presenting disease/condition affected by chronic disease/condition?: uneffected by Evaluation data The following diagnostics were reviewed and interpreted by me:: lab results, radiology exam(s) and EKG tracing(s) Lab and/or radiology exams considered but not ordered:: None Interpretation Summary: I reviewed all diagnostic test results: My interpretation of the EKG is sinus tachycardia with nonspecific ST-T changes. My interpretation of the chest x-ray is infiltrates. My review of the Chest CTA report is RLL pneumonia. Blood tests and urine tests remarkable for D-dimer 1420. COVID/Influenza: Negative. Medications / Prescriptions Medications or Prescriptions considered but not ordered:: None Medication administrations:: Medication Administration History Discontinued Medications Albuterol/Ipratropium (Albuterol/Ipratropium (Duoneb) Rt Summer 3 Ml Nebu) 3 ml INH X1 ONE Stop: 08/18/25 19:14 Last Admin: 08/18/25 20:25 Dose: 3 ml Documented By: JUJU Sodium Chloride (Ns) 1,000 mls @ 999 mls/hr IV .Q1H1M ONE Stop: 08/18/25 20:13 Last Infusion: 08/18/25 21:14 Dose: Infused Documented By: Admin: 08/18/25 20:21 Dose: 999 mls/hr Documented By: Azithromycin 500 mg/ Sodium (Chloride) 250 mls @ 250 mls/hr IV X1 ONE Stop: 08/18/25 20:12 Last Infusion: 08/18/25 22:38 Dose: Infused Documented By: Admin: 08/18/25 21:25 Dose: 250 mls/hr Documented By: Ceftriaxone Sodium/Dextrose (Rocephin/D5w 1gm Iv Premix) 1 gm in 50 mls @ 100 mls/hr IV X1 ONE Stop: 08/18/25 19:42 Last Infusion: 08/18/25 21:14 Dose: Infused Documented By: Admin: 08/18/25 20:27 Dose: 100 mls/hr Documented By: Lactated Ringer's (Lactated Ringers) 1,000 mls @ 1,000 mls/hr IV .Q1H ONE Stop: 08/18/25 22:11 Last Infusion: 08/18/25 22:38 Dose: Infused Documented By: Admin: 08/18/25 21:28 Dose: 1,000 mls/hr Documented By: MARC Ketorolac Tromethamine (Ketorolac Inj 30 Mg/Ml Vial) 30 mg IVP X1 ONE Stop: 08/18/25 19:14 Last Admin: 08/18/25 20:26 Dose: 30 mg Documented By: MARC Methylprednisolone Sodium Succinate (Methylprednisolone Sod Succ 62.5 Mg/Ml 2ml Vial) 125 mg IVP X1 ONE Stop: 08/18/25 19:14 Last Admin: 08/18/25 20:23 Dose: 125 mg Documented By: Ondansetron HCl (Ondansetron Inj 2 Mg/Ml Inj 2 Ml) 4 mg IVP X1 ONE; Protocol Stop: 08/18/25 19:14 Last Admin: 08/18/25 20:25 Dose: 4 mg Documented By: MARC Treatment here included: IVF DuoNeb Solu-Medrol 105 mg IV Toradol 30 mg IV Zofran 4 mg IV Zithromax 500 mg IV Rocephin 1 G IV Consultations Consultation(s) initiated? (list below): No Diagnosis Upper Respiratory Differential Diagnosis: upper respiratory infection, viral infection, bronchitis, influenza, pharyngitis and other (Pneumonia) Most likely diagnosis given after review of the tests above:: Pneumonia Admission Indicated Admission indicated?: not indicated Explain why admission is indicated or not indicated:: With significant improvement and no condition needing emergent intervention, there was no indication for admission. Admission Request Was there a request for admission?: No Disposition Plan Disposition Plan: Discharge Discharge Attestation Discharge Attestation: The patient and all family members were given an opportunity to ask questions and understood the discharge instructions. Discharge instructions specifically effects, indications for sooner follow up or return to the emergency department, and the expected course of current diagnosis. Patient condition: Stable Discharge Plan Plan Patient Disposition: HOME (Self Care) Prescriptions/Referrals Prescriptions/Med Rec: New acetaminophen-codeine 300-30 mg tablet 2 tab PO Q8H MDD 6 PRN (Reason: pain) Qty: 20 0RF prednisone 50 mg tablet 50 mg PO QDAY Qty: 3 0RF albuterol sulfate 90 mcg/actuation HFA aerosol inhaler 2 puff inhalation Q6H PRN (Reason: shortness of breath or wheezing) Qty: 8.5 0RF cefdinir 300 mg capsule 300 mg PO BID Qty: 14 0RF azithromycin [Zithromax TRI-KANDICE] 500 mg tablet 500 mg PO QDAY 3 Days Qty: 3 0RF No Action medroxyprogesterone [Provera] 2.5 mg tablet 5 mg PO QDAY 90 Days Qty: 180 5RF omeprazole 40 mg capsule,delayed release(DR/EC) 40 mg PO QDAY Qty: 30 2RF estradiol 0.5 mg tablet 0.5 mg PO QDAY 90 Days Qty: 90 2RF hydrocodone-acetaminophen 5-325 mg tablet 1 tab PO Q6H MDD 4 PRN (Reason: pain) Qty: 10 0RF Referrals: Asael Spence MD [Primary Care Provider, Family Practice] - In 1 week Problem List Clinical Impression: Pneumonia Patient/Caregiver Discharge Instructions Discharge Activity: activity as tolerated Education Materials: ED Pneumonia (Adult) Additional Instructions: Discharge instructions from Dr. Plaza: --No physical exertion for 3 days to help rest the lungs. ?No smoking or exposure to smoking or pets or dust or cold or humidity. --Zithromax and cefdinir to kill the germs causing the pneumonia. --Prednisone to help decrease the swelling in the airways. --Albuterol 2 puffs every 4-6 hours as needed for cough or shortness of breath. --Tylenol with codeine for severe cough or severe pain. --See a private doctor on 08/22/2025 for recheck. Ask for help until you are completely better. --Seek immediate medical care with worsening or with any concerns. Instrucciones de brandon del Dr. Plaza: --Evite el esfuerzo f?sico giancarlo 3 d?as para facilitar la recuperaci?n de los pulmones. --Evite fumar, la exposici?n al humo del tabaco, a mascotas, al polvo, al fr?o y a la humedad. --Anon Raices Zithromax y cefdinir para eliminar los g?rmenes que causan la neumon?a. --Anon Raices prednisona para ayudar a disminuir la inflamaci?n de las v?as respiratorias. --Use albuterol, 2 inhalaciones cada 4-6 horas seg?n sea necesario para la tos o la dificultad para respirar. --Anon Raices Tylenol con code?na para la tos o el dolor intenso. --Consulte con un m?dico particular el de [id number] para sharyn revisi?n. Pida ayuda hasta que se recupere por completo. --Busque atenci?n m?dica de inmediato si najma s?ntomas empeoran o si tiene alguna inquietud. Print Language: Venezuelan Stand Alone Forms: Marianne Award Info., Patient Portal Info Letter
--- NOTE | 2025-08-18 19:15 | XR_ITS ---
Examination: CTA chest with intravenous contrast 2-D reconstructions 3-D reconstructions, vascular Date and time of exam: August 18, 20252005 hours INDICATIONS: Chest pain shortness of breath beginning 4 days ago CTDI: vol (mGy) 14.84 DLP: (mGycm) 430 Technique: Multiple axial sections of the thorax have been obtained. 3 mm slice thickness, from below the hemidiaphragms to above the apices of the lungs. Mediastinal and lung density settings have been obtained. 2-D sagittal and coronal reconstructions. 3-D angiographic renderings, 3-D volume renderings, 3D post processing, vascular maximum intensity projections obtained. Contrast administered is 100 cc Isovue-370. Low dose protocols were performed. One or more of the following dose reduction techniques were used; automated exposure control, adjustment of the mA and/or KV according to patient size, use of iterative reconstruction technique. Findings: No thoracic aortic aneurysmal dilatation or dissection No pulmonary artery filling defects Mild right hilar lymphadenopathy 2 mm pulmonary nodule right upper lobe 6 mm pulmonary nodule left lower lobe Significant right lower lobe pneumonia No visualized liver or splenic lesions Absent gallbladder No common bile duct stones No pancreatic mass No hydronephrosis Aorta normal size Moderate osteopenia IMPRESSION: Negative for pulmonary artery emboli Mild right hilar lymphadenopathy Noncalcified pulmonary nodules as above, recommend 3 to 6-month follow-up CT chest without contrast Significant right lower lobe pneumonia
[2025-08-18 19:39] VITALS: BP 131/77; PULSE 114; RESP 20; TEMP 38.5; O2SAT 97
[2025-08-18] MEDS: SODIUM CHLORIDE 0.9% 1000 ML 1,000 ML 999 ML IV (20:21)
[2025-08-18] MEDS: MethylPREDNISolone SOD SUCC 62.5 MG/ML 2ML VIAL 125 MG IVP (20:23)
[2025-08-18] MEDS: ALBUTEROL/IPRATROPIUM (Duoneb) RT SOL 3 ML NEBU INH (20:25)
[2025-08-18] MEDS: ONDANSETRON INJ 2 MG/ML INJ 2 ML 4 MG IVP (20:25)
[2025-08-18 20:26] VITALS: PULSE 101; RESP 20; O2SAT 100
[2025-08-18] MEDS: KETOROLAC INJ 30 MG/ML VIAL IVP (20:26)
[2025-08-18] MEDS: cefTRIAXone/D5w 1gm IV premix 1 GM/50 ML BAG IV (20:27)
[2025-08-18] MEDS: AZITHROMYCIN INJ 500 MG in SODIUM CHLORIDE 0.9% 250 ML 250 ML 250 MG IV (21:25)
[2025-08-18] MEDS: RINGERS LACTATED 1000 ML 1,000 ML IV (21:28)
[2025-08-18 22:38] VITALS: BP 115/71; PULSE 100; RESP 19; TEMP 36.7; O2SAT 97
== END 2025-08-18 22:47 | disposition home or self-care (01) ==
PROVIDERS: Nurse Practitioner Primary Care; Emergency Provider Emergency Medicine; PCP Family Medicine
DX: J18.9 Pneumonia, unspecified organism (principal); R00.0 Tachycardia, unspecified
CPT/HCPCS: 36415; 71046; 71275; 80053; 81001; 81025; 83605; 83735; 83880; 84145; 84484; 85025; 85379; 85610; 85730; 87040; 87502; 87811; 93005; 94640; 96365; 96366; 96375; 99284; A4649; A9270; J0456; J0696; J1885; J2405; J2919; J7030; J7050; J7120; Q9967

== ENCOUNTER → 2025-09-06 | Outpatient (CLI) | payer MEDICAID, SELFPAY ==
[2025-09-06 14:31] LABS: HCG Qualitative,Urine Negative
== END | disposition home or self-care (01) ==
LOC: SCAT 09-08 10:52 → SLAB 09-09 08:34
PROVIDERS: PCP Family Medicine
DX: Z32.00 Encounter for pregnancy test, result unknown (principal)
CPT/HCPCS: 81025

== ENCOUNTER → 2025-09-19 | Outpatient (CLI) | payer MEDICAID, SELFPAY ==
[2025-09-14 09:08] LABS: Basophils # (Auto) 0.1 Thou/mm3 (0.0-0.2); Basophils % (Auto) 1 % (0-2.5); Eosinophils # (Auto) 0.4 Thou/mm3 (0.0-0.5); Eosinophils % (Auto) 6 % (0-10); Hematocrit 38.7 % (36.0-46.0); Hemoglobin 12.7 g/dL (12.0-16.0); Immature Granulocytes Auto 0.01 Thou/mm3 (0.00-0.00); Lymphocytes # (Auto) 3.9 Thou/mm3 (1.0-4.8); Lymphocytes % (Auto) 56 % (10-50); Mean Corpuscular HGB Conc 32.8 g/dl (31.0-37.0); Mean Corpuscular Hemoglobin 31.1 pg (25.0-35.0); Mean Corpuscular Volume 95 fL (80-100); Monocytes # (Auto) 0.4 Thou/mm3 (0.0-0.8); Monocytes % (Auto) 6 % (0-12); Neutrophils # (Auto) 2.1 Thou/mm3 (1.8-7.7); Neutrophils % (Auto) 30 % (37-80); Nucleated Red Blood Cell # 0.00 Thou/mm3 (0.00-0.00); Nucleated Red Blood Cell % 0 /100 WBC (0); Platelet Count 189 Thou/mm3 (140-440); RDW Standard Deviation 47.3 fL (36.4-46.3); Red Blood Count 4.09 Miln/mm3 (4.00-5.20); White Blood Count 6.9 Thou/mm3 (3.6-11.0)
[2025-09-14 09:15] LABS: INR 1.0 (0.9-1.3); Partial Thromboplastin Time 36.2 Seconds (22.0-36.0); Prothrombin Time 10.8 Seconds (9.0-12.2)
--- NOTE | 2025-09-19 09:00 | XR_ITS ---
EXAM: Left thyroid fine-needle aspiration. INDICATION heterogeneous nodule. 09/19/2025, 10:46 a.m. COMPARISON: 06/30/2025 PROCEDURE: After discussion of risks and benefits informed consent was obtained. Preliminary ultrasound evaluation again demonstrated a heterogeneous left lower pole nodule in the left thyroid. This was targeted for fine-needle aspiration. The overlying skin was cleaned and draped in normal sterile surgical fashion. 10 cc of 1% lidocaine was used for local anesthesia. Using ultrasound guidance 25-gauge needle was sequentially advanced to the targeted nodule. Multiple fine needle aspirates were obtained, placed in solutions and sent to the lab for analysis. The needle was withdrawn. Hemostasis was achieved. The access site was covered with a sterile dressing. There were no immediate complications. IMPRESSION: Successful left thyroid nodule fine needle aspiration as above.
== END | disposition home or self-care (01) ==
LOC: SDIM 09:00
PROVIDERS: Radiology Diagnostic Radiology
DX: E04.1 Nontoxic single thyroid nodule (principal)
CPT/HCPCS: 10005; 36415; 85025; 85610; 85730